=== PATIENT | female | born 1950 | race Caucasian/White ===

== ENCOUNTER 2021-01-15 11:46 | Inpatient (IN) ==
[2021-01-15] MEDS ORDERED: KETOROLAC 30 MG/ML VIAL IV ONE (12:12)
[2021-01-15] MEDS ORDERED: HYDROmorphone 0.5 MG/0.5 ML SYRINGE IV PRN ×2 (12:16→17:07)
[2021-01-15] MEDS ORDERED: ONDANSETRON 4 MG/2 ML VIAL IV ONE (12:16)
--- NOTE | 2021-01-15 12:43 | Emergency Department Note ---
Trauma HPI General Chief Complaint: Trauma Stated Complaint: Fall Time Seen by Provider: 01/15/21 12:10 Source: patient and EMS Mode of arrival: EMS History of Present Illness HPI Narrative: This a 70-year-old female patient who sustained a mechanical fall off stairs earlier this morning landing onto her right side. She comes in complaining of right wrist pain and right hip pain. On exam she has a clear deformity of the right distal radius, and the right hip is externally rotated and shortened. She is neurovascularly intact. She is a type II diabetic with hypertension. Related Data Home Medications Medication Instructions Recorded Confirmed Trulicity 04/17/20 06/02/20 aspirin 81 mg tablet,delayed 81 mg PO QDAY 04/24/20 06/02/20 release dulaglutide 0.75 mg/0.5 mL 0.75 mg SUB-Q QWEEK 04/24/20 06/02/20 subcutaneous pen injector famotidine 20 mg tablet 20 mg PO BID tab 04/24/20 06/02/20 lidocaine 5 % topical patch 2 patch TOPICAL Q12H each 04/24/20 06/02/20 lisinopril 2.5 mg tablet 2.5 mg PO QDAY 04/24/20 06/02/20 magnesium oxide 420 mg tablet 420 mg PO QDAY 04/24/20 06/02/20 Previous Rx's Medication Instructions Recorded tramadol 50 - 100 mg PO Q6HP PRN #20 tab 04/17/20 Allergies Allergy/AdvReac Type Severity Reaction Status Date / Time hydrocodone AdvReac Vomiting Verified 06/02/20 10:43 Review of Systems ROS ROS Narrative: Narrative: All systems ED: reviewed and negative except as stated. PFS Narrative Patient History Narrative: Narrative: Medical/Surgical/Family History All Active Problems (Updated 01/15/21 @ 14:25 by Joyce Baum PA-C) Distal radius fracture, right (Acute) Closed subtrochanteric fracture of femur (Acute) Back pain, thoracic (Acute) Nicotine addiction (Chronic) Obesity (Chronic) Age-related osteoporosis with current pathol fracture of vertebra (Acute) No pertinent past surgical history (Chronic) Glaucoma (Chronic) Vertigo (Chronic) Hypokalemia (Chronic) GERD (gastroesophageal reflux disease) (Chronic) Osteopenia (Chronic) Knee pain (Chronic) Toe pain (Chronic) Multinodular goiter (Chronic) Diabetes mellitus (Chronic) Hyperlipidemia (Chronic) Amenorrhea (Chronic) Patellar contusion (Chronic) Injury of meniscus of left knee (Chronic) Knee effusion, left (Chronic) Closed compression fracture of thoracic vertebra (Chronic) Medical History Age-related osteoporosis with current pathol fracture of vertebra Amenorrhea Back pain, thoracic Diabetes mellitus GERD (gastroesophageal reflux disease) Glaucoma Hyperlipidemia Hypokalemia Injury of meniscus of left knee Knee effusion, left Knee pain Multinodular goiter Nicotine addiction Obesity Osteopenia Patellar contusion Toe pain Vertigo Surgical History History of arthroscopic knee surgery Family History Father Hypertension Heart disease Alcohol abuse Mother Hypertension Arthritis Social History Smoking Status: Current every day smoker Alcohol Intake Frequency: does not drink Substance Use: does not use Exam Narrative Narrative: General: AOx3, NAD, nontoxic appearing. Pleasant and conversant. HEENT: PERRLA, EOMI, normocephalic. Moist mucous membranes. Normal facies and normal dentition. Respiratory: No respiratory distress. Unlabored breathing. Heart: Regular rate and rhythm, no murmurs/clicks/rubs. Abdomen: Non-tender, Non distended, normal bowel tones. No organomegaly. Extremities: Warm and well perfused. No edema. DP 2+ bilaterally. No venous stasis. Right distal radius with clear deformity. There is pain to palpation of the area. She is moving all fingers. Good capillary refill. Sensate throughout. Right lower extremity with clear shortening and external rotation. Neurovascular intact with good sensation and pulses. Neuro: No focal deficits. Cranial nerves II-XII normal. Skin: Warm dry, no rashes or lesions, no cyanosis. Psych: Normal mood and affect Heme/Lymph: No abnormal bruising Course Course Course Narrative: 70-year-old female presents with right wrist and right hip pain after mechanical fall Reevaluation(s) Reevaluation #1: Obtain IV access and give analgesics and antiemetics Check a CBC and CMP 3 view x-ray of the wrist and two-view x-ray of the hip to query for fractures Vital Signs Vital signs: Vital Signs Temperature 98.0 F 01/15/21 11:47 Pulse Rate 85 01/15/21 11:47 Respiratory Rate 18 01/15/21 11:47 Blood Pressure 150/81 01/15/21 11:47 Pulse Oximetry (%) 95 01/15/21 11:47 Temperature 98.0 F 01/15/21 11:47 Pulse Rate 90 01/15/21 14:03 Respiratory Rate 20 01/15/21 11:55 Blood Pressure 91/59 01/15/21 14:03 Pulse Oximetry (%) 97 01/15/21 14:03 MDM MDM Narrative Medical decision making narrative: Mechanical fall Right sub-trochanteric fracture Right distal radius fracture Type 2 diabetes Hypertension I spoke with Dr. Fernández who will plan on admitting patient taking her for surgery this afternoon. Currently pending admission. Lab Data Result diagrams: 01/15/21 12:30 01/15/21 12:30 Labs: Lab Results 01/15/21 01/15/21 Range/Units 12:30 12:30 WBC 7.1 (4.5-11.0) K/mcL RBC 4.31 (3.59-5.38) M/mcL Hgb 12.2 (11.2-15.7) g/dL Hct 39.6 (34.1-44.9) % MCV 91.9 (80.0-100.0) fL MCH 28.3 (26.0-34.0) pg MCHC 30.8 L (31.0-36.0) g/dL RDW 13.0 (11.5-14.5) % Plt Count 200 (140-440) K/mcL MPV 10.5 H (7.4-10.4) fL Sodium 138 (133-145) mmol/L Potassium 3.8 (3.3-5.1) mmol/L Chloride 106 (96-108) mmol/L Carbon Dioxide 22 (22-30) mmol/L Anion Gap 10.0 (8.0-16.0) BUN 13 (8-23) mg/dL Creatinine 0.6 (0.6-1.1) mg/dL GFR Calculation 93 Glucose 172 H (70-105) mg/dL Calcium 8.7 (8.6-10.4) mg/dL Total Bilirubin 0.5 (0.1-1.0) mg/dL AST 45 H (<32) U/L ALT 36 (<40) U/L Alkaline Phosphatase 118 H (39-117) U/L Total Protein 6.5 (5.9-8.4) gm/dL Albumin 3.5 (3.2-5.2) gm/dL Globulin 3.0 (2.2-3.7) gm/dL Albumin/Globulin Ratio 1.2 (1.0-2.3) ED POC Tests ED POC Tests: DRAKE - SARS Antigen Negative Discharge Plan Patient/Caregiver Discharge Instructions Pt seen by BAG FILLER/PA only: Yes Clinical Impression: Distal radius fracture, right, Closed subtrochanteric fracture of femur Patient Disposition: Xfer As Inpt ([facility]) Follow up with: Maya Bustos MD [Primary Care Provider] - Prescriptions: No Action aspirin 81 mg tablet,delayed release (DR/EC) 81 mg PO QDAY RF: 0 dulaglutide 0.75 mg/0.5 mL pen injector 0.75 mg SUB-Q QWEEK RF: 0 famotidine 20 mg tablet 20 mg PO BID RF: 0 lidocaine 5 % adhesive patch,medicated 2 patch TOPICAL Q12H RF: 0 lisinopril 2.5 mg tablet 2.5 mg PO QDAY RF: 0 magnesium oxide 420 mg tablet 420 mg PO QDAY RF: 0 Trulicity RF: 0 tramadol 50 mg Tablet 50 - 100 mg PO Q6HP PRN (Reason: Pain) Qty: 20 RF: 0
--- NOTE | 2021-01-15 13:23 | XRay Report ---
CLINICAL INFORMATION: pre surgery COMPARISON: None. FINDINGS: Heart is mildly enlarged. Mediastinum and pulmonary vessels are normal. Lungs are clear. No effusions. Right diaphragm mildly elevated. IMPRESSION: No acute disease Interpreted and Authenticated by: Carlos Eduardo Silverman 01/15/21
--- NOTE | 2021-01-15 13:24 | XRay Report ---
CLINICAL INFORMATION: fall, deformity COMPARISON: None. FINDINGS: Severely comminuted Colles' fracture of the distal radial metadiaphysis, metaphysis and epiphysis appreciated. Distal fragment is angulated 30 degrees dorsally and displaced approximately 1 cm dorsally. There is also a moderately comminuted oblique fracture of the distal ulnar metaphysis. The distal fragment is displaced 1 cm dorsally and there is at least 40 degrees dorsal angulation. Joint spaces are unremarkable IMPRESSION: Comminuted displaced angulated Colles' fracture distal radius. Oblique fracture distal ulna is also displaced and angulated. Interpreted and Authenticated by: Carlos Eduardo Silverman 01/15/21
--- NOTE | 2021-01-15 13:26 | XRay Report ---
CLINICAL INFORMATION: Trauma, COMPARISON: None. FINDINGS: Moderately comminuted, oblique subtrochanteric fracture of the proximal femur appreciated. The distal femoral diaphysis is displaced less than 1 cm laterally. No angulation deformity. Mild osteoporosis appreciated.. There is mild degenerative change both SI and hip joints with chondrocalcinosis the femoral head cartilages. Soft tissues are normal. IMPRESSION: Oblique moderately comminuted fractures of the proximal femoral diaphysis in the subtrochanteric region. Minimal displacement. Interpreted and Authenticated by: Carlos Eduardo Silverman 01/15/21
[2021-01-15 13:42] LABS: Hematocrit 39.6 % (34.1-44.9); Hemoglobin 12.2 g/dL (11.2-15.7); Mean Cell Volume 91.9 fL (80.0-100.0); Mean Corpuscular HGB Conc 30.8 g/dL (31.0-36.0); Mean Platelet Volume 10.5 fL (7.4-10.4); Platelet Count 200 K/mcL (140-440); RBC 4.31 M/mcL (3.59-5.38); WBC 7.1 K/mcL (4.5-11.0)
[2021-01-15 14:04] LABS: ALT/SGPT 36 U/L (<40); AST/SGOT 45 U/L (<32); Albumin 3.5 gm/dL (3.2-5.2); Albumin/Globulin Ratio 1.2 (1.0-2.3); Alkaline Phosphatase 118 U/L (39-117); Bilirubin,Total 0.5 mg/dL (0.1-1.0); Blood Urea Nitrogen 13 mg/dL (8-23); Calcium 8.7 mg/dL (8.6-10.4); Carbon Dioxide 22 mmol/L (22-30); Chloride 106 mmol/L (96-108); Glomerular Filtration Rate 93; Glucose 172 mg/dL (70-105)
[2021-01-15] MEDS ORDERED: fentaNYL 100 MCG/2 ML VIAL IV ONE ×3 (14:51→15:20)
[2021-01-15 14:54] LABS: Prothrombin Time 14.1 sec (11.9-14.5)
[2021-01-15 15:13] LABS: Eosinophils % (Manual) 1 % (0-7); Lymphocytes % 30 % (15-49); Monocytes % (Manual) 3 % (1-12); Platelet Estimate NORMAL (Normal); RBC Morphology NORMAL (Normal); Segmented Neutrophils % 66 % (38-78)
[2021-01-15] MEDS ORDERED: MAGNESIUM SULFATE 2 GM/50 ML BAG IV ONE (15:20)
[2021-01-15] MEDS ORDERED: MIDAZOLAM 2 MG/2 ML VIAL ONE (15:20)
[2021-01-15] MEDS ORDERED: ESMOLOL 100 MG/10 ML VIAL IV ONE (15:20)
[2021-01-15] MEDS ORDERED: PHENYLephrine 1 MG/10 ML SYRINGE (ANEST) ONE (15:20)
[2021-01-15] MEDS ORDERED: DEXAMETHASONE 10 MG/ML VIAL ONE (15:20)
[2021-01-15] MEDS ORDERED: PROPOFOL 200 MG/20 ML VIAL IV ONE (15:20)
[2021-01-15] MEDS ORDERED: SUGAMMADEX SODIUM 200 MG/2 ML VIAL IV ONE (15:20)
[2021-01-15] MEDS ORDERED: ONDANSETRON 4 MG/2 ML VIAL ONE ×2 (15:20→18:57)
[2021-01-15] MEDS ORDERED: ePHEDrine 50 MG/5 ML SYRINGE (ANEST) IV ONE (15:20)
[2021-01-15] MEDS ORDERED: ROCURONIUM 10 MG/ML ML IV ONE (15:20)
[2021-01-15] MEDS ORDERED: LIDOCAINE HCL/PF 100 MG/5 ML SYRINGE IV ONE (15:20)
[2021-01-15] MEDS ORDERED: ceFAZolin 2 GM in DEXTROSE 5% IN WATER 50 ML IV SCH (15:45)
[2021-01-15] MEDS ORDERED: MEPERIDINE 25 MG/ML VIAL IV PRN (17:07)
[2021-01-15] MEDS ORDERED: diphenhydrAMINE 50 MG/ML VIAL IV PRN (17:07)
[2021-01-15] MEDS ORDERED: ACETAMINOPHEN 1,000 MG/100 ML BAG IV ONE (17:07)
[2021-01-15] MEDS ORDERED: METHOCARBAMOL 1,000 MG/10 ML VIAL IV PRN (17:07)
[2021-01-15] MEDS ORDERED: IPRATROPIUM/ALBUTEROL 3 ML AMPUL.NEB NEB PRN (17:07)
[2021-01-15] MEDS ORDERED: NALOXONE HCL 0.4 MG/ML VIAL IV PRN (17:07)
[2021-01-15] MEDS ORDERED: ePHEDrine 50 MG/ML AMPUL IV PRN (17:07)
[2021-01-15] MEDS ORDERED: fentaNYL 100 MCG/2 ML VIAL IV PRN (17:07)
[2021-01-15] MEDS ORDERED: PROMETHAZINE 25 MG/ML VIAL IV PRN (17:07)
[2021-01-15] MEDS ORDERED: METOPROLOL TARTRATE 5 MG/5 ML VIAL IV PRN (17:07)
[2021-01-15] MEDS ORDERED: LACTATED RINGERS 1,000 ML IV SCH (17:15)
[2021-01-15] MEDS ORDERED: BUPIVACAINE 0.5% 50 ML VIAL IJ ONE (17:27)
[2021-01-15] MEDS ORDERED: TEMAZEPAM 15 MG CAPSULE PO PRN (17:38)
[2021-01-15] MEDS ORDERED: FLEETS ADULT ENEMA PR PRN (17:38)
[2021-01-15] MEDS ORDERED: ONDANSETRON 4 MG/2 ML VIAL IV PRN (17:38)
[2021-01-15] MEDS ORDERED: BISACODYL 10 MG SUPP.RECT PR PRN (17:38)
[2021-01-15] MEDS ORDERED: HYDROcodone/APAP 10/325MG TABLET PO PRN (17:38)
[2021-01-15] MEDS ORDERED: TRANEXAMIC ACID 1,000 MG/10 ML VIAL IV ONE (17:38)
[2021-01-15] MEDS ORDERED: MAGNESIUM HYDROXIDE 30 ML ORAL.SUSP PO PRN (17:38)
--- NOTE | 2021-01-15 17:39 | Discharge Plan ---
Discharge Plan Patient/Caregiver Discharge Instructions Activity: ambulate only with your walker and as per physical therapy Diet: Regular Diet Prescriptions: New aspirin [Ecotrin Low Strength] 81 mg tablet,delayed release (DR/EC) 81 mg PO BID Qty: 60 RF: 0 docusate sodium 100 mg capsule 100 mg PO BID Qty: 60 RF: 0 oxycodone-acetaminophen 5-325 mg tablet 1 - 2 tab PO Q4H MDD 8 PRN (Reason: pain) Qty: 75 RF: 0 No Action Trulicity 0.75 mg/0.5 mL Pen Injector 0.75 mg SUBCUT WEEKLY RF: 0 Other Ambulatory Orders: Physical Therapy DC - NICOLE (Routine) Location: None Selected Ordered By: Jonh Landeros Toilet Riser Discharge Order (ONCE) Location: None Selected Ordered By: Jonh Landeros Walker (ONCE) Location: None Selected Ordered By: Jonh Landeros Follow Up Plan Follow up with: Maya Bustos MD [Primary Care Provider] - Jonh Landeros PA-C [Physician [employer] Driver] - Patient Disposition: Home, Self-Care Prognosis: Good Rehab Potential: Good I certify that the patient requires SNF services: No Overall status at discharge: patient is progressing back to baseline Discharge Orders: Discharge Order (Routine); Ordered 01/16/21 Ordered By: Jonh Landeros
--- NOTE | 2021-01-15 18:06 | XRay Report ---
CLINICAL INFORMATION: right hip gamma nail COMPARISON: None. FINDINGS: Digital images are submitted from the OR. Images show reduction of oblique intertrochanteric fracture to near-anatomic alignment and internal fixation by a gamma nail. IMPRESSION: ORIF intertrochanteric fracture in near-anatomic alignment Interpreted and Authenticated by: Carlos Eduardo Silverman 01/15/21
[2021-01-15] MEDS ORDERED: TRANEXAMIC ACID 1,000 MG/10 ML VIAL ONE (18:24)
[2021-01-15] MEDS: KETOROLAC 15 MG/ML VIAL IV PRN (21:05)
[2021-01-15] MEDS: ASPIRIN 81 MG TAB.CHEW CHEWED SCH (21:10)
[2021-01-15] MEDS: SENNOSIDES 1 TABLET PO SCH (21:10)
[2021-01-15] MEDS: DOCUSATE SODIUM 100 MG CAPSULE PO SCH (21:10)
[2021-01-15] MEDS ORDERED: 0.9 % SODIUM CHLORIDE 500 ML IV ONE (21:20)
[2021-01-16] MEDS: ceFAZolin 1 GM VIAL IV SCH ×2 (00:04→09:34)
[2021-01-16] MEDS: BENZOCAINE/MENTHOL 1 LOZENGE PO PRN (00:04)
[2021-01-16] MEDS: 0.9 % SODIUM CHLORIDE 10 ML SYRINGE IV SCH ×4 (00:09→21:47)
[2021-01-16] MEDS: ONDANSETRON 4 MG/2 ML VIAL IV PRN ×2 (00:19→10:15)
[2021-01-16] MEDS: LACTATED RINGERS 1,000 ML IV SCH ×3 (00:23→14:52)
[2021-01-16 02:08] LABS: Appearance,Urine CLEAR (Clear); Bilirubin,Urine Negative (Negative); Color,Urine YELLOW; Culture Indicated,Urine No; Glucose,Urine (UA) >=500 mg/dL (Negative); Ketones,Urine 20 mg/dL (Negative); Leukocyte Esterase,Urine Negative /ug (Negative); Mucus,Urine FEW /hpf; Nitrate,Urine Negative (Negative); Protein,Urine Negative (Negative); Specific Gravity,Urine 1.029 (1.000-1.035); Urine Blood Negative (Negative); Urine Hyaline Cast 1 /lph (0-2); Urine RBC < 1 /hpf (0-3); Urine Squamous Epithelial Cell 0 /hpf (0-4); Urine WBC < 1 /hpf (0-4); Urobilinogen,Urine Negative
--- NOTE | 2021-01-16 02:19 | XRay Report ---
CLINICAL INFORMATION: Right subtrochanteric fracture-postop COMPARISON: Operative x-ray 01/15/2021 FINDINGS: Oblique fracture of the subtrochanteric region of the proximal femoral diaphysis is been reduced to anatomic alignment and transfixed by gamma nail. Mild degenerative change present in the hip with chondrocalcinosis in the femoral head cartilages. There is moderate patellofemoral and tibiofemoral degeneration. Diffuse soft tissue swelling noted. IMPRESSION: Oblique subtrochanteric fracture reduced to anatomic alignment and transfixed by gamma nail. Interpreted and Authenticated by: Carlos Eduardo Silverman 01/16/21
[2021-01-16] MEDS ORDERED: 0.9 % SODIUM CHLORIDE 250 ML IV SCH (09:15)
[2021-01-16] MEDS: DOCUSATE SODIUM 100 MG CAPSULE PO SCH ×2 (09:33→21:47)
[2021-01-16] MEDS: ASPIRIN 81 MG TAB.CHEW CHEWED SCH ×2 (09:33→21:46)
[2021-01-16] MEDS: INSULIN LISPRO 1 UNIT/0.01 ML UNIT SQ SCH ×4 (17:17→21:53)
[2021-01-16] MEDS: KETOROLAC 15 MG/ML VIAL IV PRN (21:47)
[2021-01-16] MEDS: SENNOSIDES 1 TABLET PO SCH (21:47)
[2021-01-17] MEDS: LACTATED RINGERS 1,000 ML IV SCH ×3 (03:49→14:09)
[2021-01-17] MEDS: 0.9 % SODIUM CHLORIDE 10 ML SYRINGE IV SCH ×3 (05:56→21:38)
[2021-01-17] MEDS: INSULIN LISPRO 1 UNIT/0.01 ML UNIT SQ SCH ×4 (09:40→21:24)
--- NOTE | 2021-01-17 09:47 | Orthopedic Progress Note ---
SUBJECTIVE Subjective Patient information: Note initiated : 01/17/21 at 9:39 am Service Date, if different from initiated Date: [] Patient: Anabel Marmolejo 70 y/o F admitted on 01/15/21 for Fall. Chief Complaint: [right hip pain and is 2 days post op for right intertroch hip fracature and right wrist fracture and swollen knee] Constitutional Vitals: Vital Signs Temp Pulse Resp BP Pulse Ox 98.7 F 104 H 20 103/60 90 01/17/21 07:23 01/17/21 07:23 01/17/21 07:23 01/17/21 07:23 01/17/21 09:00 Period Temp Pulse Resp BP Sys/Osorio Pulse Ox Last 24 Hr 97.4 F-98.7 F 101-105 16-24 88-111/56-65 90-95 Intake and Output 01/16/21 01/17/21 01/17/21 21:59 05:59 13:59 Intake Total 58 1400 0 Output Total 100 400 Balance -42 1000 0 Weight 183 lb 9 oz Intake & Output: Intake & Output 01/16/21 01/17/21 01/17/21 21:59 05:59 13:59 Intake Total 58 1400 0 Output Total 100 400 Balance -42 1000 0 Weight 183 lb 9 oz Intake: IV 58 1000 Sodium Chloride 0.9% 250 ml @ 58 20 mls/hr IV .[id number] PAPI Rx#: [id number] Lactated Ringers 1,000 ml @ 100 1000 mls/hr IV .Q10H PAPI Rx#: [id number] Oral 0 400 0 Output: Urine Catheter Amount 400 Emesis 100 Other: Urine Appearance Clear Urine Color Light Iris # Emeses 1 OBJ DATA Labs CBC & Chem 7: 01/16/21 06:56 01/15/21 12:30 Labs: Abnormal Lab Results 01/16/21 01/16/21 01/15/21 06:56 01:00 12:30 Hct 25.4 L MCHC MPV Glucose 172 H AST 45 H Alkaline Phosphatase 118 H Urine Glucose (UA) >=500 A Urine Ketones 20 A Urine Mucus Few A 01/15/21 12:30 Hct MCHC 30.8 L MPV 10.5 H Glucose AST Alkaline Phosphatase Urine Glucose (UA) Urine Ketones Urine Mucus Meds: Medications Acetaminophen (Acetaminophen 325 Mg Tablet) 650 mg PO Q6HP PRN; Protocol PRN Reason: Per Pain Protocol/Fever > 101 Hydrocodone Bitart/Acetaminophen (Hydrocodone/Apap 10/325mg Tablet) 1 - 2 tab PO Q4HP PRN; Protocol PRN Reason: Per Pain Protocol Aspirin (Aspirin 81 Mg Tab.Chew) 81 mg CHEWED BID [facility] Last Admin: 01/16/21 21:46 Dose: 81 mg Documented by: Bisacodyl (Bisacodyl 10 Mg Supp.Rect) 10 mg MA Q2-3DAYS PRN PRN Reason: Constipation Diagnostic Test (Pha) (Accu-Chek 1 Each Strip) 1 each FS [facility] Last Admin: 01/16/21 21:46 Dose: 1 each Documented by: Docusate Sodium (Docusate Sodium 100 Mg Capsule) 100 mg PO BID [facility] Last Admin: 01/16/21 21:47 Dose: Not Given Documented by: Hydromorphone HCl (Hydromorphone 1 Mg/Ml Syringe) 0.5 - 2 mg IV Q2HP PRN; Gildardo col PRN Reason: Per Pain Protocol Lactated Ringer's (Lactated Ringers) 1,000 mls @ 100 mls/hr IV .Q10H [facility] Last Admin: 01/17/21 03:49 Dose: 100 mls/hr Documented by: Insulin Human Lispro (Insulin Lispro 1 Unit/0.01 Ml Unit) 0 unit SQ [facility]; Protocol Last Admin: 01/16/21 21:53 Dose: Not Given Documented by: Ketorolac Tromethamine (Ketorolac 15 Mg/Ml Vial) 15 mg IV Q6HP PRN; Protocol PRN Reason: Per Pain Protocol Stop: 01/17/21 17:40 Last Admin: 01/16/21 21:47 Dose: 15 mg Documented by: Magnesium Hydroxide (Magnesium Hydroxide 30 Ml Oral.Susp) 30 ml PO BIDP PRN PRN Reason: Constipation Ondansetron HCl (Ondansetron 4 Mg/2 Ml Vial) 4 mg IV Q4HP PRN; Protocol PRN Reason: Nausea And Vomiting Last Admin: 01/16/21 10:15 Dose: 4 mg Documented by: Dulaglutide [ Trulicity] 0.75 Mg/0 .5 Ml Pen Injector 1 dose SUB-Q Tu@0900 [facility] Polyethylene Glycol (Polyethylene Glycol 3350 17 Gm Packet) 17 gm PO DAILYP PRN PRN Reason: Constipation Senna (Sennosides 1 Tablet) 2 tab PO HS [facility] Last Admin: 01/16/21 21:47 Dose: Not Given Documented by: Sodium Biphosphate/Sodium Phosphate (Fleets Adult Enema) 1 dose MA Q3-4DAYS PRN PRN Reason: Constipation Sodium Chloride (0.9 % Sodium Chloride 10 Ml Syringe) 10 ml IV Q8 [facility] Last Admin: 01/17/21 05:56 Dose: Not Given Documented by: Temazepam (Temazepam 15 Mg Capsule) 15 mg PO HSP PRN PRN Reason: Insomnia Throat Lozenges (Benzocaine/Menthol 1 Lozenge) 1 lozenge PO PRN PRN PRN Reason: Sore Throat Last Admin: 01/16/21 00:04 Dose: 1 lozenge Documented by: ABG Interpretation Additional comments: greater than 500 mg sugar in urine A/P Narrative A/P Narrative: Unable to ambulate secondary to knee pain ct scan right knee if continued pain dc to intermediate severe osteoperosis Time Spent With Patient Time: Total time spent is greater than 50% in coordination of care (as documented) at patient's floor/unit and/or counseling patient: Total time spent with greater than 50% in coordination of care (as documented) at patient's floor/unit and/or counseling patient:: 15 - 24 minutes
[2021-01-17] MEDS: DOCUSATE SODIUM 100 MG CAPSULE PO SCH ×2 (10:11→21:24)
[2021-01-17] MEDS: ASPIRIN 81 MG TAB.CHEW CHEWED SCH ×2 (10:11→21:24)
--- NOTE | 2021-01-17 13:28 | XRay Report ---
CLINICAL INFORMATION: Pain after trauma COMPARISON: 01/15/2021 FINDINGS: The distal end of a gamma nail with interlocking screws is seen in the mid and distal femoral diaphysis. No osseous abnormality. Moderate patellofemoral effusion with air-fluid level appreciated. Mild degenerative change seen about patellofemoral and tibiofemoral joints.. IMPRESSION: Moderate patellofemoral effusion with air-fluid level. This is new from the intraoperative film two days ago. It is assumed this space was not surgically entered at the time of gamma nail placement transfixing a proximal femoral fracture. The possibility of infection should be entertained. Consider needle aspiration Interpreted and Authenticated by: Carlos Eduardo Silverman 01/17/21
[2021-01-17] MEDS: HYDROmorphone 1 MG/ML SYRINGE IV PRN (17:16)
[2021-01-17] MEDS: ONDANSETRON 4 MG/2 ML VIAL IV PRN (17:16)
[2021-01-17] MEDS: KETOROLAC 15 MG/ML VIAL IV PRN (17:16)
[2021-01-17] MEDS: ACETAMINOPHEN 325 MG TABLET PO PRN (17:17)
[2021-01-17] MEDS: SENNOSIDES 1 TABLET PO SCH (21:24)
[2021-01-18] MEDS: 0.9 % SODIUM CHLORIDE 10 ML SYRINGE IV SCH ×4 (04:59→22:37)
[2021-01-18] MEDS: LACTATED RINGERS 1,000 ML IV SCH ×3 (04:59→17:34)
[2021-01-18] MEDS: INSULIN LISPRO 1 UNIT/0.01 ML UNIT SQ SCH ×4 (08:59→20:40)
[2021-01-18] MEDS: DOCUSATE SODIUM 100 MG CAPSULE PO SCH ×2 (09:00→21:23)
[2021-01-18] MEDS: ACETAMINOPHEN 325 MG TABLET PO PRN ×3 (09:00→22:36)
[2021-01-18] MEDS: ASPIRIN 81 MG TAB.CHEW CHEWED SCH ×2 (09:00→21:27)
[2021-01-18] MEDS: HYDROmorphone 1 MG/ML SYRINGE IV PRN ×3 (09:01→22:45)
[2021-01-18] MEDS: ONDANSETRON 4 MG/2 ML VIAL IV PRN ×2 (09:01→15:22)
--- NOTE | 2021-01-18 14:26 | Operative Note ---
DATE OF OPERATION: 01/15/2021 PREOPERATIVE DIAGNOSES: 1. Right intertrochanteric and subtrochanteric hip fracture. 2. Right distal radius fracture, severely comminuted. POSTOPERATIVE DIAGNOSES: 1. Right intertrochanteric and subtrochanteric hip fracture. 2. Right distal radius fracture, severely comminuted. PROCEDURE: 1. Right distal radius open reduction internal fixation with volar plate and screws. 2. Right hip with open reduction and IM nailing using a long gamma nail. IMPLANTS: Volar long plate with multiple screws per nurse's note. The gamma nail was 36 cm in length, 13 mm in diameter with a dynamic compression screw measuring 95 mm. The distal screws locked. The stem measured 50 and 52.5 mm. COMPLICATIONS: None. ESTIMATED BLOOD LOSS: 100 mL. SURGEON: Akshat Casas M.D. [employer]: Jonh Landeros PA-C. This providers expertise and technical skill were required throughout the case. The TAWANNA assisted with preoperative coordination, intraoperative retraction, wound closure, and dressing and splint application, as well as postoperative documentation and care coordination. ANESTHESIA: General LMA anesthesia. COMPLICATIONS: None. DISPOSITION: To PACU. INDICATIONS: A 70-year-old female who had a same level fall and had severe pain in the right wrist and the right hip area. DESCRIPTION OF PROCEDURE: The patient was brought to the operating room, put to sleep with general LMA anesthesia. Once asleep, the patient had the right hip sterilely prepped and draped in the usual sterile fashion. A timeout was performed confirming this as the operative site by initials, consent form, and x-rays. Ioban had been placed over the skin and an incision superior to the greater trochanter was made. This was dissected down to the greater trochanter and a guidewire was then placed centrally. Using image confirmed a central location of the guidewire, we then reamed proximally and then placed a guidewire. We then placed the gamma nail, which measured 36 cm in total length into place. We placed the compression screw, which measured 95 cm centrally and slightly inferior and posteriorly into the femoral head. This was then compressed using the compression mechanism by the [employer] system, and then a locking screw placed. Two distal screws were placed. Using image, these were a 52 and a 50 mm locking screw. Her bone quality was very poor. We took images of the entire femur and the hip and these were saved. We closed the wounds with 2-0 Vicryl and sha. PROCEDURE #2: The right arm was then sterilely prepped. After redraping we had a timeout confirming the right arm as the operative site. We made a volar approach to the wrist using an incision over the flexor carpi radialis. This was retracted ulnarly and we identified the quadratus. This was released from the fracture, but the fracture was very complex. It extended into the shaft as well as through the ulnar styloid. The bone quality was a paper thin--very poor osteopenic bone. This was reduced. We then placed a long the volar plate. We placed one nonlocking screw and one distal locking screw. This had excellent fixation. We then placed an additional screw in the radial styloid fragment and then three screws distally in the ulnar segment of the fracture. I then placed four additional screws up into the shaft. These measured 14, 12, 10, 10 and 10. We irrigated thoroughly and then took images to confirm the reduction. The right arm was placed in a long-arm splint. No tourniquet was used. Blood loss about 20 mL. RBH:patricia Job ID: [id number] Doc ID: [id number] Akshat Casas MD
[2021-01-18] MEDS: SENNOSIDES 1 TABLET PO SCH (21:23)
[2021-01-19] MEDS: 0.9 % SODIUM CHLORIDE 10 ML SYRINGE IV SCH ×2 (04:03→14:59)
--- NOTE | 2021-01-19 07:52 | Orthopedic Progress Note ---
SUBJECTIVE Subjective Patient information: Note initiated : 01/19/21 at 7:48 am Service Date, if different from initiated Date: [] Patient: Anabel Marmolejo 70 y/o F admitted on 01/15/21 for Fall. Chief Complaint: [PO Day 4, pt struggling to get up and bear weight because of knee pain. ] Constitutional Vitals: Vital Signs Temp Pulse Resp BP Pulse Ox 98.0 F 92 H 20 103/59 94 01/19/21 03:04 01/19/21 03:04 01/19/21 03:04 01/19/21 03:04 01/19/21 06:00 Period Temp Pulse Resp BP Sys/Osorio Pulse Ox Last 24 Hr 97.4 F-98.4 F 85-92 20-22 97-124/56-71 90-96 Intake and Output 01/18/21 01/19/21 01/19/21 21:59 05:59 13:59 Intake Total 240 360 Balance 240 360 Weight 165 lb 12.8 oz Intake & Output: Intake & Output 01/18/21 01/19/21 01/19/21 21:59 05:59 13:59 Intake Total 240 360 Balance 240 360 Weight 165 lb 12.8 oz Intake: Oral 240 360 Extremities Exam Additional comments: Knee very swollen, effusion present and warm to touch---- OBJ DATA Labs CBC & Chem 7: 01/17/21 10:00 01/15/21 12:30 Labs: Abnormal Lab Results 01/17/21 01/16/21 10:00 06:56 Hct 26.4 L 25.4 L Meds: Medications Acetaminophen (Acetaminophen 325 Mg Tablet) 650 mg PO Q6HP PRN; Protocol PRN Reason: Per Pain Protocol/Fever > 101 Last Admin: 01/18/21 22:36 Dose: 650 mg Documented by: Hydrocodone Bitart/Acetaminophen (Hydrocodone/Apap 10/325mg Tablet) 1 - 2 tab PO Q4HP PRN; Protocol PRN Reason: Per Pain Protocol Aspirin (Aspirin 81 Mg Tab.Chew) 81 mg CHEWED BID [facility] Last Admin: 01/18/21 21:27 Dose: 81 mg Documented by: Bisacodyl (Bisacodyl 10 Mg Supp.Rect) 10 mg VT Q2-3DAYS PRN PRN Reason: Constipation Diagnostic Test (Pha) (Accu-Chek 1 Each Strip) 1 each FS [facility] Last Admin: 01/18/21 20:38 Dose: 1 each Documented by: Docusate Sodium (Docusate Sodium 100 Mg Capsule) 100 mg PO BID [facility] Last Admin: 01/18/21 21:23 Dose: Not Given Documented by: Hydromorphone HCl (Hydromorphone 1 Mg/Ml Syringe) 0.5 - 2 mg IV Q2HP PRN; Protocol PRN Reason: Per Pain Protocol Last Admin: 01/18/21 22:45 Dose: 1 mg Documented by: Insulin Human Lispro (Insulin Lispro 1 Unit/0.01 Ml Unit) 0 unit SQ [facility]; Protocol Last Admin: 01/18/21 20:40 Dose: Not Given Documented by: Magnesium Hydroxide (Magnesium Hydroxide 30 Ml Oral.Susp) 30 ml PO BIDP PRN PRN Reason: Constipation Ondansetron HCl (Ondansetron 4 Mg/2 Ml Vial) 4 mg IV Q4HP PRN; Protocol PRN Reason: Nausea And Vomiting Last Admin: 01/18/21 09:01 Dose: 4 mg Documented by: Dulaglutide [ Trulicity] 0.75 Mg/0 .5 Ml Pen Injector 1 dose SUB-Q Tu@0900 [facility] Polyethylene Glycol (Polyethylene Glycol 3350 17 Gm Packet) 17 gm PO DAILYP PRN PRN Reason: Constipation Senna (Sennosides 1 Tablet) 2 tab PO HS [facility] Last Admin: 01/18/21 21:23 Dose: Not Given Documented by: Sodium Biphosphate/Sodium Phosphate (Fleets Adult Enema) 1 dose [place] Q3-4DAYS PRN PRN Reason: Constipation Sodium Chloride (0.9 % Sodium Chloride 10 Ml Syringe) 10 ml IV Q8 [facility] Last Admin: 01/19/21 04:03 Dose: 10 ml Documented by: Temazepam (Temazepam 15 Mg Capsule) 15 mg PO HSP PRN PRN Reason: Insomnia Throat Lozenges (Benzocaine/Menthol 1 Lozenge) 1 lozenge PO PRN PRN PRN Reason: Sore Throat Last Admin: 01/16/21 00:04 Dose: 1 lozenge Documented by: A/P Narrative A/P Narrative: Today I aspirated the knee and obtained 70cc bloody effusion that willl be sent for cell count, gram stain, crystals and aerobic/anerobic cultures and we will order non-contrast CT of right knee. Pt awaiting SNF transfer otherwise cleared from ortho. Pt is having difficulty voiding and straight cath ordered as well as bladder scan as indicated. CMP requested by RN and ok'd. Time Spent With Patient Time: Total time spent is greater than 50% in coordination of care (as documented) at patient's floor/unit and/or counseling patient: Total time spent with greater than 50% in coordination of care (as documented) at patient's floor/unit and/or counseling patient:: 25 - 35 minutes
[2021-01-19] MEDS: HYDROmorphone 1 MG/ML SYRINGE IV PRN (08:52)
[2021-01-19] MEDS: ONDANSETRON 4 MG/2 ML VIAL IV PRN (09:01)
[2021-01-19] MEDS: ACETAMINOPHEN 325 MG TABLET PO PRN (09:17)
--- NOTE | 2021-01-19 09:26 | Cat Scan Report ---
History: Fell with right knee injury, 70 mL fluid was drained from the knee prior to the CT TECHNIQUE: The knee was imaged without contrast in axial plane at 2.5 mm intervals. Sagittal and coronal reformats were created. Radiation exposure was limited using dose reduction technology. FINDINGS: There is an acute minimally displaced fracture of the lateral tibial plateau. The fracture is oriented in a sagittal plane. There is no significant step-off along the articular surface. There is also a nondisplaced fracture in the adjacent head of the fibula. The medial tibial plateau is intact. The femoral condyles are intact. There is a metal courtney in the femur secured with two transversely oriented screws in the distal shaft of the femur. There is no reabsorption of bone around the hardware. The patient has underlying osteoarthritis. Medial joint compartment of the knee is narrowed, indicating loss of articular cartilage. There is very little spur formation. Small residual joint effusion is present. There is moderate subcutaneous edema surrounding the knee. IMPRESSION: Lateral tibial plateau fracture and fractured head of the fibula Interpreted and Authenticated by: Carlos A Worrell 01/19/21
[2021-01-19 09:32] LABS: ALT/SGPT 14 U/L (<40); AST/SGOT 24 U/L (<32); Albumin 2.8 gm/dL (3.2-5.2); Alkaline Phosphatase 84 U/L (39-117); Bilirubin,Total 1.1 mg/dL (0.1-1.0); Blood Urea Nitrogen 24 mg/dL (8-23); Carbon Dioxide 21 mmol/L (22-30); Chloride 103 mmol/L (96-108); Globulin 2.7 gm/dL (2.2-3.7); Glomerular Filtration Rate 88; Glucose 148 mg/dL (70-105)
[2021-01-19] MEDS: INSULIN LISPRO 1 UNIT/0.01 ML UNIT SQ SCH ×4 (10:02→20:53)
[2021-01-19] MEDS: DOCUSATE SODIUM 100 MG CAPSULE PO SCH ×2 (10:10→20:55)
[2021-01-19] MEDS: ASPIRIN 81 MG TAB.CHEW CHEWED SCH ×2 (10:10→20:55)
[2021-01-19] MEDS: Dulaglutide [Trulicity] 0.75 mg/0.5 mL Pen Injector SUB-Q SCH (11:07)
[2021-01-19 15:12] LABS: Appearance,Synovial Fluid Bloody; Color,Synovial Fluid Red; Lymphocytes,Synovial Fluid 9 %; Neutrophils,Synovial Fluid 87 % (0-25); Nucleated Cells,Synovial Fld 4319 /cumm; Other Cells,Synovial Fluid 4 %
[2021-01-19] MEDS: SENNOSIDES 1 TABLET PO SCH (20:55)
[2021-01-20] MEDS: 0.9 % SODIUM CHLORIDE 10 ML SYRINGE IV SCH ×4 (00:13→22:35)
[2021-01-20] MEDS: ONDANSETRON 4 MG/2 ML VIAL IV PRN ×2 (06:26→11:32)
--- NOTE | 2021-01-20 06:34 | Orthopedic Progress Note ---
SUBJECTIVE Subjective Patient information: Note initiated : 01/20/21 at 6:25 am Service Date, if different from initiated Date: [] Patient: Anabel Marmolejo 70 y/o F admitted on 01/15/21 for Fall. Chief Complaint: [Hospital day 6. Continues to complain of knee pain and is fairly nauseous this AM from pain medication per patient. Not able to ambulate. ] Constitutional Vitals: Vital Signs Temp Pulse Resp BP Pulse Ox 98.7 F 91 H 20 115/66 94 01/20/21 03:07 01/20/21 03:07 01/20/21 03:07 01/20/21 03:07 01/20/21 03:07 Period Temp Pulse Resp BP Sys/Osorio Pulse Ox Last 24 Hr 97.7 F-99.2 F 78-96 18- 92-115/57-66 92-95 Intake and Output 01/19/21 01/20/21 01/20/21 21:59 05:59 13:59 Intake Total 800 120 Balance 800 120 Weight 164 lb 14.4 oz Intake & Output: Intake & Output 01/19/21 01/20/21 01/20/21 21:59 05:59 13:59 Intake Total 800 120 Balance 800 120 Weight 164 lb 14.4 oz Intake: Oral 800 120 Other: Meal Lunch Percent of Meal Consumed 75% Feeding Ability Independent Additional findings Additional findings: General: alert and oriented, appropriate Right wrist- in big bulkly splint, fingers perfused Right hip/knee: dressing in place and silver dressing at the knee as well. Mild joint effusion, slight valgus alignment with a scar over the medial aspect of the knee at level of patella. ROM deferred but resting at neutral. Foot warm well perfused. OBJ DATA Labs CBC & Chem 7: 01/17/21 10:00 01/19/21 08:20 Labs: Abnormal Lab Results 01/19/21 01/19/21 01/17/21 08:20 07:50 10:00 Hct 26.4 L Carbon Dioxide 21 L BUN 24 H Glucose 148 H Calcium 8.0 L Total Bilirubin 1.1 H Total Protein 5.5 L Albumin 2.8 L Synovial Neutrophils 87 H Meds: Medications Acetaminophen (Acetaminophen 325 Mg Tablet) 650 mg PO Q6HP PRN; Protocol PRN Reason: Per Pain Protocol/Fever > 101 Last Admin: 01/19/21 09:17 Dose: 650 mg Documented by: Hydrocodone Bitart/Acetaminophen (Hydrocodone/Apap 10/325mg Tablet) 1 - 2 tab PO Q4HP PRN; Protocol PRN Reason: Per Pain Protocol Aspirin (Aspirin 81 Mg Tab.Chew) 81 mg CHEWED BID [facility] Last Admin: 01/19/21 20:55 Dose: 81 mg Documented by: Bisacodyl (Bisacodyl 10 Mg Supp.Rect) 10 mg OK Q2-3DAYS PRN PRN Reason: Constipation Diagnostic Test (Pha) (Accu-Chek 1 Each Strip) 1 each FS [facility] Last Admin: 01/19/21 20:54 Dose: 1 each Documented by: Docusate Sodium (Docusate Sodium 100 Mg Capsule) 100 mg PO BID [facility] Last Admin: 01/19/21 20:55 Dose: 100 mg Documented by: Hydromorphone HCl (Hydromorphone 1 Mg/Ml Syringe) 0.5 - 2 mg IV Q2HP PRN; Protocol PRN Reason: Per Pain Protocol Last Admin: 01/19/21 08:52 Dose: 0.5 mg Documented by: Insulin Human Lispro (Insulin Lispro 1 Unit/0.01 Ml Unit) 0 unit SQ [facility]; Protocol Last Admin: 01/19/21 20:53 Dose: 2 units Documented by: Magnesium Hydroxide (Magnesium Hydroxide 30 Ml Oral.Susp) 30 ml PO BIDP PRN PRN Reason: Constipation Ondansetron HCl (Ondansetron 4 Mg/2 Ml Vial) 4 mg IV Q4HP PRN; Protocol PRN Reason: Nausea And Vomiting Last Admin: 01/19/21 09:01 Dose: 4 mg Documented by: Dulaglutide [ Trulicity] 0.75 Mg/0 .5 Ml Pen Injector 1 dose SUB-Q Tu@0900 [facility] Last Admin: 01/19/21 11:07 Dose: Not Given Documented by: Polyethylene Glycol (Polyethylene Glycol 3350 17 Gm Packet) 17 gm PO DAILYP PRN PRN Reason: Constipation Senna (Sennosides 1 Tablet) 2 tab PO HS [facility] Last Admin: 01/19/21 20:55 Dose: 2 tab Documented by: Sodium Biphosphate/Sodium Phosphate (Fleets Adult Enema) 1 dose OK Q3-4DAYS PRN PRN Reason: Constipation Sodium Chloride (0.9 % Sodium Chloride 10 Ml Syringe) 10 ml IV Q8 PAPI Last Admin: 01/20/21 00:13 Dose: 10 ml Documented by: Temazepam (Temazepam 15 Mg Capsule) 15 mg PO HSP PRN PRN Reason: Insomnia Throat Lozenges (Benzocaine/Menthol 1 Lozenge) 1 lozenge PO PRN PRN PRN Reason: Sore Throat Last Admin: 01/16/21 00:04 Dose: 1 lozenge Documented by: A/P Assessment and plan (1) Tibial plateau fracture, left: Status: Acute Comment: 71 year old female now HD 6 and status post ORIF right comminuted distal radius facture and peritrochanteric right femur fracture with new found right split depressed lateral tibial plateau fracture. CT was obtained yesterday as patient continued to complain of knee pain and inability to ambulate. --Discussed the tibial plateau fracture with the patient as Dr. Casas is out of town who has treated the other 2 fractures. The fracture as some widening of the plateau and depression but overall could be treated non operatively. However, given patients additional fractures to include upper extremity and ipsilateral hip fracture, do think it is reasonable to consider surgical intervention to stabilize the fracture which would make it a bit easier for mobilization and likely improve pain a bit faster. Discussed would still keep her foot flat weight bearing for at least 6 weeks but typically is longer. Would plan to augment with bone cement give the osteopenic appearance on the bone on CT scan. After discussion with her, she does want to proceed with surgery. Will plan for open reduction internal fixation of right tibial plateau fracture today. The fibula is comminuted on CT and will not address this surgically. Risks of surgery discussed with her along with benefits. Time Spent With Patient Time: Total time spent is greater than 50% in coordination of care (as docu mented) at patient's floor/unit and/or counseling patient:
[2021-01-20] MEDS: ACETAMINOPHEN 1,000 MG/100 ML BAG IV SCH ×3 (08:26→21:44)
[2021-01-20] MEDS: INSULIN LISPRO 1 UNIT/0.01 ML UNIT SQ SCH ×4 (08:31→21:39)
[2021-01-20] MEDS: DOCUSATE SODIUM 100 MG CAPSULE PO SCH ×2 (08:32→20:36)
[2021-01-20] MEDS: ASPIRIN 81 MG TAB.CHEW CHEWED SCH (08:32)
[2021-01-20] MEDS: DEXTROSE 5%-1/2NS W/10MEQ KCL 1,000 ML IV SCH ×2 (10:02→16:01)
[2021-01-20] MEDS: PROMETHAZINE 25 MG/ML VIAL IV PRN (14:00)
[2021-01-20] MEDS: HYDROmorphone 1 MG/ML SYRINGE IV PRN (14:11)
[2021-01-20] MEDS ORDERED: ceFAZolin 2 GM in DEXTROSE 5% IN WATER 50 ML IV SCH (15:00)
[2021-01-20] MEDS ORDERED: TRANEXAMIC ACID 1,000 MG/10 ML VIAL ONE (15:12)
[2021-01-20] MEDS ORDERED: ROPIVACAINE HCL/PF 30 ML VIAL IJ ONE (15:12)
[2021-01-20] MEDS ORDERED: DEXAMETHASONE 10 MG/ML VIAL ONE (15:12)
[2021-01-20] MEDS ORDERED: MIDAZOLAM 2 MG/2 ML VIAL ONE (15:12)
[2021-01-20] MEDS ORDERED: GLYCOPYRROLATE 0.2 MG/ML VIAL IV ONE (15:12)
[2021-01-20] MEDS ORDERED: PROPOFOL 200 MG/20 ML VIAL IV ONE (15:12)
[2021-01-20] MEDS ORDERED: ONDANSETRON 4 MG/2 ML VIAL ONE (15:12)
[2021-01-20] MEDS ORDERED: KETAMINE 50 MG/ML Syringe (ANEST) IV ONE (15:12)
[2021-01-20] MEDS ORDERED: PHENYLEPHRINE 10 MG/ML VIAL ONE (15:12)
[2021-01-20] MEDS ORDERED: fentaNYL 100 MCG/2 ML VIAL IV ONE (15:12)
[2021-01-20] MEDS ORDERED: MAGNESIUM SULFATE 2 GM/50 ML BAG IV ONE (15:12)
[2021-01-20] MEDS ORDERED: LIDOCAINE HCL/PF 100 MG/5 ML SYRINGE IV ONE (15:12)
[2021-01-20] MEDS ORDERED: VANCOMYCIN 1 GM VIAL TOPICAL SCH (16:30)
[2021-01-20] MEDS ORDERED: VANCOMYCIN 1 GM VIAL TOPICAL ONE (16:45)
[2021-01-20] MEDS ORDERED: BENZOCAINE/MENTHOL 1 LOZENGE PO PRN (16:53)
[2021-01-20] MEDS ORDERED: fentaNYL 100 MCG/2 ML VIAL IV PRN (16:53)
[2021-01-20] MEDS ORDERED: ONDANSETRON 4 MG/2 ML VIAL IV PRN (16:53)
[2021-01-20] MEDS ORDERED: ACETAMINOPHEN 1,000 MG/100 ML BAG IV ONE (16:53)
[2021-01-20] MEDS ORDERED: METHOCARBAMOL 1,000 MG/10 ML VIAL IV PRN (16:53)
[2021-01-20] MEDS ORDERED: MEPERIDINE 25 MG/ML VIAL IV PRN (16:53)
[2021-01-20] MEDS ORDERED: IPRATROPIUM/ALBUTEROL 3 ML AMPUL.NEB NEB PRN (16:53)
--- NOTE | 2021-01-20 16:54 | Brief Operative Note ---
Brief Operative Note Date of procedure: 01/20/21 Pre-op diagnosis: right knee lateral tibial plateau fracture Post-op diagnosis: same Procedure: ORIF right lateral tibial plateau fracture Grafts/Implants: Yes Anesthesia: GETA Findings: split fracture of lateral tibial plateau fracture, has significant knee hyper extension. Complications: none Surgeon: Nichole Morales Waiter/Waitress Room Service: Murray Adler Estimated blood loss (cc): 20 Tourniquet Time (Minutes): 75 Specimens Removed/Pathology: none sent Condition: stable Disposition: PACU
[2021-01-20] MEDS ORDERED: METHOCARBAMOL 750 MG TABLET PO PRN (16:57)
[2021-01-20] MEDS ORDERED: oxyCODONE HCL 5 MG TABLET PO PRN (16:57)
[2021-01-20] MEDS ORDERED: LACTATED RINGERS 1,000 ML IV SCH (17:00)
--- NOTE | 2021-01-20 17:04 | XRay Report ---
HISTORY: FINDINGS: IMPRESSION: 0.8 minutes of fluoroscopy time was used. Interpreted and Authenticated by: Carlos A Worrell 01/20/21
[2021-01-20] MEDS ORDERED: DEXTROSE 31 GM ORAL.SUSP PO PRN ×2 (17:09→20:58)
[2021-01-20] MEDS ORDERED: DEXTROSE 50% 50 ML VIAL IV PRN ×2 (17:09→20:58)
--- NOTE | 2021-01-20 17:43 | XRay Report ---
HISTORY: Postop open reduction internal fixation of lateral tibial plateau fracture FINDINGS: There is good alignment following open reduction internal fixation of the fracture through the lateral tibial plateau. The bone fragments are held in good alignment using metal plate and screws. The mild depression seen preoperatively has been corrected. Joint spaces are normal in width. The fracture through the neck of the fibula is well aligned. IMPRESSION: Good alignment following surgical reduction of the fractured lateral tibial plateau Interpreted and Authenticated by: Carlos A Worrell 01/20/21
[2021-01-20] MEDS: 0.9 % SODIUM CHLORIDE 1,000 ML IV SCH (17:57)
[2021-01-20] MEDS: SENNOSIDES 1 TABLET PO SCH (20:35)
[2021-01-20] MEDS: BENZOCAINE/MENTHOL 1 LOZENGE PO PRN (20:36)
[2021-01-20] MEDS ORDERED: INSULIN LISPRO 1 UNIT/0.01 ML UNIT SQ SCH ×2 (21:00)
[2021-01-20] MEDS ORDERED: INSULIN LISPRO 1 UNIT/0.01 ML UNIT SQ ONE (21:08)
[2021-01-20] MEDS: ceFAZolin 1 GM VIAL IV SCH (23:38)
[2021-01-21] MEDS: ACETAMINOPHEN 1,000 MG/100 ML BAG IV SCH ×3 (05:45→21:57)
[2021-01-21] MEDS: 0.9 % SODIUM CHLORIDE 10 ML SYRINGE IV SCH ×2 (05:51→13:27)
[2021-01-21 06:21] LABS: Hematocrit 24.8 % (34.1-44.9); Hemoglobin 7.9 g/dL (11.2-15.7)
[2021-01-21] MEDS: 0.9 % SODIUM CHLORIDE 1,000 ML IV SCH ×2 (07:28→21:48)
[2021-01-21] MEDS: HYDROmorphone 1 MG/ML SYRINGE IV PRN (07:44)
[2021-01-21] MEDS: ceFAZolin 1 GM VIAL IV SCH (07:47)
--- NOTE | 2021-01-21 07:51 | Orthopedic Progress Note ---
SUBJECTIVE Subjective Patient information: Note initiated : 01/21/21 at 7:46 am Service Date, if different from initiated Date: [] Patient: Anabel Marmolejo 70 y/o F admitted on 01/15/21 for Fall. She is 6 days status post ORIF of a right distal radius fracture as well as a right subtrochanteric femur fracture with Dr. Casas. She is postop day #1 following ORIF of a right tibial plateau fracture with Dr. Morales. Overall no acute issues overnight. She admits to pain in the right knee along with nausea and some reflux however denies chest pain, shortness of breath, fever/chills. Ove rall she states her pain is managed. Chief Complaint: [Right knee pain.] Constitutional Vitals: Vital Signs Temp Pulse Resp BP Pulse Ox 97.3 F 80 14 115/68 96 01/21/21 07:30 01/21/21 07:30 01/21/21 07:30 01/21/21 07:30 01/21/21 07:30 Period Temp Pulse Resp BP Sys/Osorio Pulse Ox Last 24 Hr 97 F-98.6 F 79-102 7- 110-160/63-90 88-98 Intake and Output 01/20/21 01/21/21 01/21/21 21:59 05:59 13:59 Intake Total 2049 100 Output Total 550 700 Balance 1500 -600 Weight 169 lb 6.4 oz Intake & Output: Intake & Output 01/20/21 01/21/21 01/21/21 21:59 05:59 13:59 Intake Total 2049 100 Output Total 550 700 Balance 1500 -600 Weight 169 lb 6.4 oz Intake: IV 1150 100 Dextrose 5%-1/2Ns W/10Meq KCl 1 1000 ,000 ml @ 100 mls/hr IV .Q10H PAPI Rx#:[id number] Ancef 2 gm In Dextrose 5% in 50 Water 50 ml @ 100 mls/hr IV PREOP PAPI Rx#:[id number] Oral 0 IV - Manual Only 900 Output: Urine Catheter Amount 550 700 Other: Urine Appearance Clear Clear Urine Color Dark Iris Dark Yellow Extremities Exam Extremities exam: Present pedal edema, Foot pink and warm and neurovascular intact; Absent calf tenderness and Apollo's sign Additional comments: Right upper extremity splint in place it is clean and dry. Dressing over right hip is clean and dry. Colt wrap is in place over right lower extremity with hinged knee Shushan in place. Wrap is clean dry and intact. Full range of motion of the foot and ankle. NVIT distally. Foot is warm and well- perfused with palpable DP pulse. OBJ DATA Labs CBC & Chem 7: 01/21/21 05:22 01/19/21 08:20 Labs: Abnormal Lab Results 01/21/21 01/19/21 01/19/21 05:22 08:20 07:50 Hgb 7.9 L Hct 24.8 L Carbon Dioxide 21 L BUN 24 H Glucose 148 H Calcium 8.0 L Total Bilirubin 1.1 H Total Protein 5.5 L Albumin 2.8 L Synovial Neutrophils 87 H Meds: Medications Bisacodyl (Bisacodyl 10 Mg Supp.Rect) 10 mg SC Q2-3DAYS PRN PRN Reason: Constipation Dextrose (Dextrose 50% 50 Ml Vial) 0 ml IV UD PRN PRN Reason: Hypoglycemia Diagnostic Test (Pha) (Accu-Chek 1 Each Strip) 1 each FS [facility] Last Admin: 01/20/21 21:07 Dose: 1 each Documented by: Docusate Sodium (Docusate Sodium 100 Mg Capsule) 100 mg PO BID [facility] Last Admin: 01/20/21 20:36 Dose: 100 mg Documented by: Enoxaparin Sodium (Enoxaparin 40 Mg/0.4 Ml Syringe) 40 mg SQ DAILY [facility] Glucose (Dextrose 31 Gm Oral.Susp) 15 gm PO PRN PRN PRN Reason: Hypoglycemia Hydromorphone HCl (Hydromorphone 1 Mg/Ml Syringe) 0.5 - 2 mg IV Q2HP PRN; Protocol PRN Reason: Per Pain Protocol Last Admin: 01/21/21 07:44 Dose: 0.5 mg Documented by: Acetaminophen (Ofirmev) 1,000 mg in 100 mls @ 200 mls/hr IV Q8 PAPI; Protocol Last Admin: 01/21/21 05:45 Dose: 100 mls/hr Documented by: Sodium Chloride (Sodium Chloride 0.9%) 1,000 mls @ 75 mls/hr IV .[id number] [facility] Last Admin: 01/21/21 07:28 Dose: 75 mls/hr Documented by: Insulin Human Lispro (Insulin Lispro 1 Unit/0.01 Ml Unit) 0 unit SQ [facility]; Protocol Last Admin: 01/20/21 21:39 Dose: Not Given Documented by: Magnesium Hydroxide (Magnesium Hydroxide 30 Ml Oral.Susp) 30 ml PO BIDP PRN PRN Reason: Constipation Methocarbamol (Methocarbamol 500 Mg Tablet) 500 mg PO TIDP PRN PRN Reason: Muscle Spasm Methocarbamol (Methocarbamol 750 Mg Tablet) 750 mg PO Q6HP PRN PRN Reason: Muscle Spasm Ondansetron HCl (Ondansetron 4 Mg/2 Ml Vial) 4 mg IV Q4HP PRN; Protocol PRN Reason: Nausea And Vomiting Last Admin: 01/20/21 11:32 Dose: 4 mg Documented by: Oxycodone HCl (Oxycodone Hcl 5 Mg Tablet) 0 mg PO Q4HP PRN; Protocol PRN Reason: Per Pain Protocol Dulaglutide [ Trulicity] 0.75 Mg/0 .5 Ml Pen Injector 1 dose SUB-Q Tu@0900 [facility] Last Admin: 01/19/21 11:07 Dose: Not Given Documented by: Polyethylene Glycol (Polyethylene Glycol 3350 17 Gm Packet) 17 gm PO DAILYP PRN PRN Reason: Constipation Promethazine HCl (Promethazine 25 Mg/Ml Vial) 12.5 mg IV Q6HP PRN PRN Reason: Nausea And Vomiting Last Admin: 01/20/21 14:00 Dose: 12.5 mg Documented by: Senna (Sennosides 1 Tablet) 2 tab PO [facility] Last Admin: 01/20/21 20:35 Dose: 2 tab Documented by: Sodium Biphosphate/Sodium Phosphate (Fleets Adult Enema) 1 dose SC Q3-4DAYS PRN PRN Reason: Constipation Sodium Chloride (0.9 % Sodium Chloride 10 Ml Syringe) 10 ml IV Q8 [facility] Last Admin: 01/21/21 05:51 Dose: Not Given Documented by: Temazepam (Temazepam 15 Mg Capsule) 15 mg PO HSP PRN PRN Reason: Insomnia Throat Lozenges (Benzocaine/Menthol 1 Lozenge) 1 lozenge PO PRN PRN PRN Reason: Sore Throat Last Admin: 01/20/21 20:36 Dose: 1 lozenge Documented by: A/P Assessment and plan (1) Tibial plateau fracture, left: Status: Acute Comment: 71 year old female now HD 6 and status post ORIF right comminuted distal radius facture and peritrochanteric right femur, as well as postop day #1 following ORIF of a lateral tibial plateau fracture. --Keep splint in place on right upper extremity. Keep clean and dry. -PT/OT: Nonweightbearing right upper extremity as well as right lower extremity. --Continue pain medications --Continue diet --Dressing change to right lower extremity if more than 50% saturated. Replace with new silver dressing. --prophy: Lovenox, IS, SCDs, foot pumps. --dispo: SNF (2) Distal radius fracture, right: Status: Acute (3) Closed subtrochanteric fracture of femur: Status: Acute Time Spent With Patient Time: Total time spent is greater than 50% in coordination of care (as documented) at patient's floor/unit and/or counseling patient:
[2021-01-21] MEDS: INSULIN LISPRO 1 UNIT/0.01 ML UNIT SQ SCH ×4 (08:00→21:47)
--- NOTE | 2021-01-21 08:20 | Operative Note ---
DATE OF OPERATION: 01/20/2021 PREOPERATIVE DIAGNOSIS: Right lateral tibial plateau fracture. POSTOPERATIVE DIAGNOSIS: Right lateral tibial plateau fracture. PROCEDURE PERFORMED: Open reduction internal fixation of lateral tibial plateau fracture. SURGEON: Nichole Morales M.D. CUTTING TABLE OPERATOR FIRST: Murray Adler PA-C. This providers expertise and technical skill were required throughout the case. The PA assisted with preoperative coordination, intraoperative retraction, wound closure, and dressing and splint application, as well as postoperative documentation and care coordination. ANESTHESIA: General. INTRAVENOUS FLUIDS: 1200 mL lactated Ringer's. ESTIMATED BLOOD LOSS: Minimal. TOURNIQUET TIME: 1 hour 50 minutes at 250 mmHg. IMPLANTS: A short bend 3-hole proximal tibial plate from [employer]. ANTIBIOTICS: 2 grams Ancef. INTRAOPERATIVE COMPLICATIONS: None apparent. PATHOLOGY TO LAB: None. INDICATIONS FOR PROCEDURE: The patient is a 70-year-old female who sustained a fall, now approximately 6-7 days ago. At that time she was evaluated by Dr. Fernández and treated for a right hip fracture with a cephalomedullary device as well as the comminuted distal radius fracture of the right side with a volar locking plate. She subsequently continued to complain about pain in the knee and a CT was completed, demonstrating a proximal right lateral tibial plateau fracture. Given that fact that Dr. Fernández was out of town and I was compensation expert, I elected to discuss the case with the patient. I discussed the injury with the patient and that the fracture itself on CT is not overly displaced; however, given the combination of the fracture of the hip and wrist, I do think that there is some benefit to operative intervention to stabilize the fracture and allow for improved mobilization; however, there are risks associated with surgery, which she understands. Given her options, she does want to proceed with surgery. DESCRIPTION OF PROCEDURE: Patient was met in the preoperative holding area where the site was verified and marked with the patient's input. She was subsequently taken back to the operating room where she underwent successful general anesthesia. Her right lower extremity had a silver dressing for the distal interlocks, which was removed. The leg had a well-padded tourniquet placed on proximal thigh and then was cleaned with chlorhexidine wipes. There was noted a heel pressure ulcer, which has dressing as well as a sacral decubitus ulcer that developed, stage I-II. There are no skin breaks, but it was definitely darkened and concerning. The right lower extremity was then prepped and draped in the usual sterile fashion with ChloraPrep. Surgical timeout was performed to verify patient's identity, correct procedure being performed, and correct extremity being operated on. Everybody was in agreement. Esmarch was utilized to exsanguinate the extremity, tourniquet was inflated to 250 mmHg. I created a linear incision over the lateral aspect of the knee, extending from just proximal to the joint line over Gerdy's tubercle along the anterolateral compartment of the leg. Skin was sharply incised. IT band was identified as well as the anterior compartment of the fascia. This was incised in line with the fibers and elevated off of Gerdy's tubercle anteriorly and posteriorly. This did localize the fracture and was relatively mobile, more so than what I expected given the CT findings. This was reducible with direct pressure. Given that, I placed a K-wire to hold it in a reduced fashion. I created a capsulotomy horizontal in nature, deep to the lateral meniscus and elevated up to ensure there was no comminuted depressed fragment, which I did not appreciate. Given that, I placed a short plate over the lateral aspect of the tibial plateau, a short bend fit the best. I placed this at the joint line itself. I placed two K-wires to hold this and verified underneath fluoroscopy and then placed a 3.5 cortical nonlocking screw in the oblong hole as well as 2 cortical nonlocking screws in the proximal holes and rafting screws to compress the fracture additionally and overall it appeared to be anatomic on the radiographs as well as clinically. Given that, I placed the remainder of the screws in a locking fashion parallel to the joint. I placed an additional locking screw in the shaft and one most inferiorly along the kickstand screw in a locking fashion. Her bone quality was very poor and osteoporotic in nature. Once this was complete, the wound was copiously irrigated with IrriSept and normal saline. I placed 1 gram vancomycin powder deep in the wound. The IT band was closed with 0 Vicryl in interrupted and running fashion combination, subcutaneous tissue with 3-0 Vicryl and skin closed with sha. The leg was then cleaned and dried. We placed a silver dressing to include the distal interlock screws for the cephalomedullary nail. The leg was then wrapped in an Colt wrap and placed into a hinged knee brace locked in extension. POSTOPERATIVE PLAN: The patient will be admitted back to the floor. She will be foot flat weightbearing only, this for 6 weeks, but can begin range of motion. DLW:patricia Job ID: [id number] Doc ID: [id number] Nichole Morales MD [facility]
[2021-01-21] MEDS: PROMETHAZINE 25 MG/ML VIAL IV PRN ×3 (09:06→21:59)
[2021-01-21] MEDS: DOCUSATE SODIUM 100 MG CAPSULE PO SCH ×2 (09:23→22:32)
[2021-01-21] MEDS: ENOXAPARIN 40 MG/0.4 ML SYRINGE SQ SCH (09:23)
[2021-01-21] MEDS: SENNOSIDES 1 TABLET PO SCH (22:32)
[2021-01-22] MEDS: 0.9 % SODIUM CHLORIDE 10 ML SYRINGE IV SCH ×4 (01:26→21:14)
[2021-01-22] MEDS: ONDANSETRON 4 MG/2 ML VIAL IV PRN (03:00)
[2021-01-22] MEDS: OMEPRAZOLE 20 MG CAPSULE PO SCH ×2 (03:20→07:49)
[2021-01-22] MEDS ORDERED: OMEPRAZOLE 20 MG CAPSULE PO ONE (03:22)
[2021-01-22] MEDS: ACETAMINOPHEN 1,000 MG/100 ML BAG IV SCH ×3 (05:54→21:13)
--- NOTE | 2021-01-22 06:59 | Orthopedic Progress Note ---
SUBJECTIVE Subjective Patient information: Note initiated : 01/22/21 at 6:49 am Service Date, if different from initiated Date: [] Patient: Anabel Marmolejo 70 y/o F admitted on 01/15/21 for Fall. Chief Complaint: [continues to complain of nausea, unable to keep fluid down, denies shortness of breath, chest pain or dizziness. Has not been out of bed. +flatus but not bowel movement] Constitutional Vitals: Vital Signs Temp Pulse Resp BP Pulse Ox 97.6 F 94 H 14 117/69 95 01/22/21 06:47 01/22/21 06:47 01/22/21 06:47 01/22/21 06:47 01/22/21 06:47 Period Temp Pulse Resp BP Sys/Osorio Pulse Ox Last 24 Hr 97.3 F-99.1 F 80-94 14-20 103-117/61-69 89-96 Intake and Output 01/21/21 01/22/21 01/22/21 21:59 05:59 13:59 Intake Total 1340 100 Output Total 700 1200 Balance 640 -1100 Weight 167 lb 7 oz Intake & Output: Intake & Output 01/21/21 01/22/21 01/22/21 21:59 05:59 13:59 Intake Total 1340 100 Output Total 700 1200 Balance 640 -1100 Weight 167 lb 7 oz Intake: IV 1100 100 Sodium Chloride 0.9% 1,000 ml @ 1000 75 mls/hr IV .[id number] [facility] Rx#: [id number] Oral 240 Output: Urine Catheter Amount 450 650 Emesis 250 550 Other: Urine Appearance Clear Clear Reinserted Fuller Clear Urine Color Dark Yellow Dark Yellow Reinserted Fuller Dark Yellow Additional findings Additional findings: General: alert, oriented, appropriate right wrist: bulky splint in place, fingers warm well perfused Right hip/Knee: dressing in place and without strikethrough. foot warm well perfused, sensation intatact OBJ DATA Labs CBC & Chem 7: 01/21/21 05:22 01/19/21 08:20 Labs: Abnormal Lab Results 01/21/21 01/19/21 01/19/21 05:22 08:20 07:50 Hgb 7.9 L Hct 24.8 L Carbon Dioxide 21 L BUN 24 H Glucose 148 H Calcium 8.0 L Total Bilirubin 1.1 H Total Protein 5.5 L Albumin 2.8 L Synovial Neutrophils 87 H Meds: Medications Bisacodyl (Bisacodyl 10 Mg Supp.Rect) 10 mg ID Q2-3DAYS PRN PRN Reason: Constipation Dextrose (Dextrose 50% 50 Ml Vial) 0 ml IV UD PRN PRN Reason: Hypoglycemia Diagnostic Test (Pha) (Accu-Chek 1 Each Strip) 1 each FS [facility] Last Admin: 01/21/21 21:47 Dose: 1 each Documented by: Docusate Sodium (Docusate Sodium 100 Mg Capsule) 100 mg PO BID [facility] Last Admin: 01/21/21 22:32 Dose: Not Given Documented by: Enoxaparin Sodium (Enoxaparin 40 Mg/0.4 Ml Syringe) 40 mg SQ DAILY [facility] Last Admin: 01/21/21 09:23 Dose: 40 mg Documented by: Glucose (Dextrose 31 Gm Oral.Susp) 15 gm PO PRN PRN PRN Reason: Hypoglycemia Hydromorphone HCl (Hydromorphone 1 Mg/Ml Syringe) 0.5 - 2 mg IV Q2HP PRN; Protocol PRN Reason: Per Pain Protocol Last Admin: 01/21/21 07:44 Dose: 0.5 mg Documented by: Acetaminophen (Ofirmev) 1,000 mg in 100 mls @ 200 mls/hr IV Q8 [facility]; Protocol Last Admin: 01/22/21 05:54 Dose: 200 mls/hr Documented by: Sodium Chloride (Sodium Chloride 0.9%) 1,000 mls @ 75 mls/hr IV .[id number] [facility] Last Admin: 01/21/21 21:48 Dose: 75 mls/hr Documented by: Insulin Human Lispro (Insulin Lispro 1 Unit/0.01 Ml Unit) 0 unit SQ [facility]; Protocol Last Admin: 01/21/21 21:47 Dose: Not Given Documented by: Magnesium Hydroxide (Magnesium Hydroxide 30 Ml Oral.Susp) 30 ml PO BIDP PRN PRN Reason: Constipation Methocarbamol (Methocarbamol 500 Mg Tablet) 500 mg PO TIDP PRN PRN Reason: Muscle Spasm Omeprazole (Omeprazole 20 Mg Capsule) 20 mg PO ACB [facility] Last Admin: 01/22/21 03:20 Dose: 20 mg Documented by: Ondansetron HCl (Ondansetron 4 Mg/2 Ml Vial) 4 mg IV Q4HP PRN; Protocol PRN Reason: Nausea And Vomiting Last Admin: 01/22/21 03:00 Dose: 4 mg Documented by: Oxycodone HCl (Oxycodone Hcl 5 Mg Tablet) 0 mg PO Q4HP PRN; Protocol PRN Reason: Per Pain Protocol Dulaglutide [ Trulicity] 0.75 Mg/0 .5 Ml Pen Injector 1 dose SUB-Q Tu@0900 [facility] Last Admin: 01/19/21 11:07 Dose: Not Given Documented by: Polyethylene Glycol (Polyethylene Glycol 3350 17 Gm Packet) 17 gm PO DAILYP PRN PRN Reason: Constipation Promethazine HCl (Promethazine 25 Mg/Ml Vial) 12.5 mg IV Q6HP PRN PRN Reason: Nausea And Vomiting Last Admin: 01/21/21 21:59 Dose: 12.5 mg Documented by: Senna (Sennosides 1 Tablet) 2 tab PO HS [facility] Last Admin: 01/21/21 22:32 Dose: Not Given Documented by: Sodium Biphosphate/Sodium Phosphate (Fleets Adult Enema) 1 dose ID Q3-4DAYS PRN PRN Reason: Constipation Sodium Chloride (0.9 % Sodium Chloride 10 Ml Syringe) 10 ml IV Q8 [facility] Last Admin: 01/22/21 06:27 Dose: Not Given Documented by: Temazepam (Temazepam 15 Mg Capsule) 15 mg PO HSP PRN PRN Reason: Insomnia Throat Lozenges (Benzocaine/Menthol 1 Lozenge) 1 lozenge PO PRN PRN PRN Reason: Sore Throat Last Admin: 01/20/21 20:36 Dose: 1 lozenge Documented by: A/P Assessment and plan (1) Tibial plateau fracture, left: Status: Acute Comment: 71 year old female now post op ORIF right comminuted distal radius facture and peritrochanteric right femur, as well as postop day #2 following ORIF of a lateral tibial plateau fracture. --Non weight bearing to right wrist but can use a forearm walker for weight bearing --Non weight right lower extremity given tibial plateau fracture --------PT/OT - ROM 0-90 degrees for the knee, heel slides, quad sets, straight leg raises all ok out of the brace. Brace when attempting to ambulate/transfer --- Discussed with patient she needs to get up and sit in chair at least today -- Main issue is nausea, unable to keep food down ------zofran/phenergan/omeprazole which have failed to improve symptoms, not taking the oral pain meds, is have flatus but no bowel movement yet ----consulted Hospitalist to aid in this regard --Pending H/H this AM will likely transfuse --Pressure ulcers (right heal and sacrum)- frequent turns, wound nurse consulted as well --Will keep fuller until patient can transfer as she was sitting in her urine prior to surgery as she refused to move --Prophy: lovenox, IS, foot pumps, mobilize as possible --Dispo: pending but needs SNF (2) Distal radius fracture, right: Status: Acute (3) Closed subtrochanteric fracture of femur: Status: Acute Time Spent With Patient Time: Total time spent is greater than 50% in coordination of care (as documented) at patient's floor/unit and/or counseling patient:
[2021-01-22 07:02] LABS: Hematocrit 25.1 % (34.1-44.9); Hemoglobin 7.9 g/dL (11.2-15.7)
--- NOTE | 2021-01-22 07:28 | Internal Medicine Consult Note ---
HPI Data of Consult Consult date: 01/22/21 Primary Care Provider: Maya Bustos Consult Narrative cc:: CC: Akshat Casas Patient admitted on the after fall down her stairs resulting in multiple fractures. On 01/18 she had ORIF of the distal radius and the right hip. On 01/20 she had ORIF of the right tibial plateau. She has had some postop anemia with hemoglobin 7.9 today was 7.9 yesterday. She is had nausea vomiting heartburn. Also generalized weakness and not getting out of bed. For these reasons hospitalist was consulted. She has been getting IV fluid. BUN is mildly elevated from a few days ago with a normal creatinine. Speak with patient she says she does have chronic nausea and pyrosis but that has been much worse here. Is aggravated by food medications and movement. She denies diarrhea. She does complain of some epigastric achiness. Patient states she has a poor appetite because of nausea. performed FUENTES without gross blood, hard stool noted in rectal vault. Review of Systems: Pertinent positives as above. Denies headache/fever/chills/chest or abdominal pain/cough/dyspnea. Remaining 10 point review of system reviewed negative PFSH PFSH All Active Problems (Updated 01/22/21 @ 06:59 by Nichole Morales MD) Tibial plateau fracture, left (Acute) Distal radius fracture, right (Acute) Closed subtrochanteric fracture of femur (Acute) Back pain, thoracic (Acute) Nicotine addiction (Chronic) Obesity (Chronic) Age-related osteoporosis with current pathol fracture of vertebra (Acute) No pertinent past surgical history (Chronic) Glaucoma (Chronic) Vertigo (Chronic) Hypokalemia (Chronic) GERD (gastroesophageal reflux disease) (Chronic) Osteopenia (Chronic) Knee pain (Chronic) Toe pain (Chronic) Multinodular goiter (Chronic) Diabetes mellitus (Chronic) Hyperlipidemia (Chronic) Amenorrhea (Chronic) Patellar contusion (Chronic) Injury of meniscus of left knee (Chronic) Knee effusion, left (Chronic) Closed compression fracture of thoracic vertebra (Chronic) Medical History Age-related osteoporosis with current pathol fracture of vertebra Amenorrhea Back pain, thoracic Diabetes mellitus GERD (gastroesophageal reflux disease) Glaucoma Hyperlipidemia Hypokalemia Injury of meniscus of left knee Knee effusion, left Knee pain Multinodular goiter Nicotine addiction Obesity Osteopenia Patellar contusion Toe pain Vertigo Surgical History History of arthroscopic knee surgery Family History Father Hypertension Heart disease Alcohol abuse Mother Hypertension Arthritis Social History (Updated 04/27/20 @ 12:31 by Lyla Bonilla) marital status: education level: high school occupational status: 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 alcohol intake frequency: does not drink substance use type: does not use MEDS/ALLERGIES Home Medications and Allergies Home Medications Medication Instructions Recorded Confirmed Type aspirin [Ecotrin Low Strength] 81 mg PO BID #60 tab 01/15/21 Rx docusate sodium 100 mg PO BID #60 cap 01/15/21 Rx dulaglutide [Trulicity] 0.75 mg SUBCUT WEEKLY 01/15/21 01/15/21 History oxycodone-acetaminophen 1 - 2 tab PO Q4H PRN #75 tab MDD 8 01/15/21 Rx Allergies Allergy/AdvReac Type Severity Reaction Status Date / Time hydrocodone AdvReac Mild Vomiting Verified 01/15/21 20:21 EXAM Constitutional Vitals: Temp Pulse Resp BP Pulse Ox 97.6 F 94 H 14 117/69 95 01/22/21 06:47 01/22/21 06:47 01/22/21 06:47 01/22/21 06:47 01/22/21 06:47 Exam: General: Alert, Awake, No acute Distress Eyes/N/T: EOMI, Head/Neck: neck supple, CV: RRR, No murmurs, Pulm: Clear b/l, no wheezing/rhonchi/rales Abd: soft, mild epigastric TTP, +BS x4 Ext: no clubbing/cyanosis/edema Neuro: Alert, no focal deficits, moves all extremities, Skin: warm/dry DATA Data Completed and Pending Labs: Labs from last 24 hours 01/22/21 05:35 Hgb 7.9 L Hct 25.1 L Preliminary micro results at discharge 01/19/21 07:50 Gram Stain - Preliminary Synovial Fluid - Knee Anaerobic Culture - Preliminary A/P Narrative A/P Narrative: A: *Nausea(acute on chronic)/Vomiting/mild epigastric discomfort: GERD contributing -pt states she does get dizzy and home on occasion -AXR unremarkable *GERD/Pyrosis: possibly some gastritis or esophagitis *Generalized weakness/FTT/Debility: from multiple fx's -anemia contributing to weakness *Acute blood loss anemia: 2/ Fall/Fx's/surgery -FOBT negative *DM: *Multiple right side Fxs from Fall down stairs: s/p ORIF (01/18 & 01/20) *Constipation: P: -prbc transfusion -ppi -carafate -on IVF but will d/c -SSI -bowel regimen, enema prn -pt/ot, encourage movement -CM for placement needs -ppx: lovenox per ortho Time Spent With Patient Time: Total time spent is greater than 50% in coordination of care (as documented) at patient's floor/unit and/or counseling patient:
[2021-01-22] MEDS: INSULIN LISPRO 1 UNIT/0.01 ML UNIT SQ SCH ×4 (07:53→21:19)
[2021-01-22 08:02] LABS: ALT/SGPT 10 U/L (<40); AST/SGOT 17 U/L (<32); Albumin 2.7 gm/dL (3.2-5.2); Albumin/Globulin Ratio 1.1 (1.0-2.3); Alkaline Phosphatase 77 U/L (39-117); Bilirubin,Direct 0.4 mg/dL (<0.3); Bilirubin,Total 0.9 mg/dL (0.1-1.0); Blood Urea Nitrogen 18 mg/dL (8-23); Calcium 7.4 mg/dL (8.6-10.4); Carbon Dioxide 19 mmol/L (22-30); Chloride 104 mmol/L (96-108); Globulin 2.4 gm/dL (2.2-3.7); Glomerular Filtration Rate 93; Glucose 100 mg/dL (70-105); Lactate Dehydrogenase 177 U/L (135-225); Phosphorous 3.1 mg/dL (2.5-4.5); Triglycerides 177 mg/dL (<150); Uric Acid 5.3 mg/dL (2.5-8.0)
[2021-01-22] MEDS ORDERED: diphenhydrAMINE 50 MG/ML VIAL IV PRN (08:33)
--- NOTE | 2021-01-22 08:39 | XRay Report ---
HISTORY: Fell, nausea and vomiting FINDINGS: Supine and left lateral decubitus views were obtained. The bowel gas pattern is normal. There is no free abdominal air. No soft tissue mass is seen and there are no abnormal calcifications. There is linear scarring or discoid atelectasis in both lung bases. Moderate amount of calcified plaque is present in the aorta. IMPRESSION: No acute abnormality Interpreted and Authenticated by: Carlos A Worrell 01/22/21
[2021-01-22] MEDS: DOCUSATE SODIUM 100 MG CAPSULE PO SCH ×2 (10:06→21:14)
[2021-01-22] MEDS: ENOXAPARIN 40 MG/0.4 ML SYRINGE SQ SCH (10:06)
[2021-01-22] MEDS: METOCLOPRAMIDE 10 MG/2 ML VIAL IV PRN (10:07)
[2021-01-22] MEDS ORDERED: MECLIZINE 25 MG TABLET PO ONE (10:22)
[2021-01-22] MEDS ORDERED: SUCRALFATE 1 GM/10 ML ORAL.SUSP PO ONE (10:42)
[2021-01-22] MEDS: SCOPOLAMINE 1 PATCH PATCH TOPICAL SCH ×2 (11:44→13:42)
[2021-01-22] MEDS: SUCRALFATE 1 GM/10 ML ORAL.SUSP PO SCH ×3 (11:44→21:14)
[2021-01-22 15:31] LABS: Appearance,Urine CLEAR (Clear); Bilirubin,Urine Negative (Negative); Color,Urine YELLOW; Culture Indicated,Urine No; Glucose,Urine (UA) 50 mg/dL (Negative); Ketones,Urine 80 mg/dL (Negative); Leukocyte Esterase,Urine Negative /ug (Negative); Nitrate,Urine Negative (Negative); Protein,Urine Negative (Negative); Specific Gravity,Urine 1.021 (1.000-1.035); Urine RBC 12 /hpf (0-3); Urine Squamous Epithelial Cell 2 /hpf (0-4); Urine Transitional Epi Cells < 1 /hpf (0-2); Urine WBC 3 /hpf (0-4); Urobilinogen,Urine Negative
[2021-01-22] MEDS: PANTOPRAZOLE 40 MG PACKET PO SCH (17:11)
[2021-01-22 18:14] LABS: Sodium, Urine Random 189 mmol/L
[2021-01-22] MEDS: SENNOSIDES 1 TABLET PO SCH (21:14)
[2021-01-23] MEDS: ACETAMINOPHEN 1,000 MG/100 ML BAG IV SCH ×4 (05:44→21:28)
[2021-01-23] MEDS: 0.9 % SODIUM CHLORIDE 10 ML SYRINGE IV SCH ×3 (05:46→21:28)
--- NOTE | 2021-01-23 07:29 | Internal Med Progress Note ---
SUBJECTIVE Subjective Patient information: Note initiated : 01/23/21 at 7:26 am Service Date, if different from initiated Date: [] Patient: Anabel Marmolejo 70 y/o F admitted on 01/15/21 for Fall. Chief Complaint: [] Interval history: Patient admitted on the after fall down her stairs resulting in multiple fractures. On 01/18 she had ORIF of the distal radius and the right hip. On 01/20 she had ORIF of the right tibial plateau. She has had some postop anemia with hemoglobin 7.9 today was 7.9 yesterday. She is had nausea vomiting heartburn. Also generalized weakness and not getting out of bed. For these reasons hospitalist was consulted. She has been getting IV fluid. BUN is mildly elevated from a few days ago with a normal creatinine. Speak with patient she says she does have chronic nausea and pyrosis but that has been much worse here. Is aggravated by food medications and movement. She denies diarrhea. She does complain of some epigastric achiness. Patient states she has a poor appetite because of nausea. performed FUENTES without gross blood, hard stool noted in rectal vault. 01/23 Feeling better today. No nausea or vomiting. Tolerating diet. Encouraged her to work with PT today. had good BM yesterday. Review of Systems: denies headache/fever/chills/nausea/vomiting/chest or abdominal pain/cough/dyspnea/diarrhea. Otherwise see above. Constitutional Vitals: Vital Signs Temp Pulse Resp BP Pulse Ox 98.2 F 82 18 124/71 93 01/23/21 03:17 01/23/21 03:17 01/23/21 03:17 01/23/21 03:17 01/23/21 06:29 Period Temp Pulse Resp BP Sys/Osorio Pulse Ox Last 24 Hr 97.1 F-98.3 F 79-89 15-18 106-124/63-71 91-96 Intake and Output 01/22/21 01/23/21 01/23/21 21:59 05:59 13:59 Intake Total 200 120 100 Output Total 550 300 Balance -350 -180 100 Weight 72.529 kg Intake & Output: Intake & Output 01/22/21 01/23/21 01/23/21 21:59 05:59 13:59 Intake Total 200 120 100 Output Total 550 300 Balance -350 -180 100 Weight 72.529 kg Intake: IV 200 100 Oral 120 Output: Urine Catheter Amount 550 300 Other: Urine Appearance Clear Urine Color Dark Yellow Dark Yellow Urine Odor Normal Exam: General: Alert, Awake, No acute Distress Eyes/N/T: EOMI, Head/Neck: neck supple, CV: RRR, No murmurs, Pulm: Clear b/l, no wheezing/rhonchi/rales Abd: soft, mild epigastric TTP, +BS x4 Ext: no clubbing/cyanosis/edema Neuro: Alert, no focal deficits, moves all extremities, Skin: warm/dry OBJ DATA Labs CBC & Chem 7: 01/23/21 05:25 01/22/21 05:35 Labs: Abnormal Lab Results 01/22/21 01/22/21 01/22/21 13:50 05:35 05:35 Hgb 7.9 L Hct 25.1 L Carbon Dioxide 19 L Calcium 7.4 L Direct Bilirubin 0.4 H Total Protein 5.1 L Albumin 2.7 L Triglycerides 177 H Urine Glucose (UA) 50 A Urine Ketones 80 A Urine RBC 12 H 01/21/21 05:22 Hgb 7.9 L Hct 24.8 L Carbon Dioxide Calcium Direct Bilirubin Total Protein Albumin Triglycerides Urine Glucose (UA) Urine Ketones Urine RBC Meds: Medications Bisacodyl (Bisacodyl 10 Mg Supp.Rect) 10 mg DE Q2-3DAYS PRN PRN Reason: Constipation Dextrose (Dextrose 50% 50 Ml Vial) 0 ml IV UD PRN PRN Reason: Hypoglycemia Diagnostic Test (Pha) (Accu-Chek 1 Each Strip) 1 each FS [facility] Last Admin: 01/22/21 21:19 Dose: 1 each Documented by: Diphenhydramine HCl (Diphenhydramine 50 Mg/Ml Vial) 25 mg IV Q4-6HP PRN PRN Reason: Nausea Docusate Sodium (Docusate Sodium 100 Mg Capsule) 100 mg PO BID [facility] Last Admin: 01/22/21 21:14 Dose: 100 mg Documented by: Enoxaparin Sodium (Enoxaparin 40 Mg/0.4 Ml Syringe) 40 mg SQ DAILY [facility] Last Admin: 01/22/21 10:06 Dose: 40 mg Documented by: Glucose (Dextrose 31 Gm Oral.Susp) 15 gm PO PRN PRN PRN Reason: Hypoglycemia Hydromorphone HCl (Hydromorphone 1 Mg/Ml Syringe) 0.5 - 2 mg IV Q2HP PRN; Protocol PRN Reason: Per Pain Protocol Last Admin: 01/21/21 07:44 Dose: 0.5 mg Documented by: Acetaminophen (hCarityirmev) 1,000 mg in 100 mls @ 200 mls/hr IV Q8 [facility]; Protocol Last Infusion: 01/23/21 06:23 Dose: Infused Documented by: Insulin Human Lispro (Insulin Lispro 1 Unit/0.01 Ml Unit) 0 unit SQ [facility]; Protocol Last Admin: 01/22/21 21:19 Dose: Not Given Documented by: Magnesium Hydroxide (Magnesium Hydroxide 30 Ml Oral.Susp) 30 ml PO BIDP PRN PRN Reason: Constipation Meclizine HCl (Meclizine 25 Mg Tablet) 25 mg PO TIDP PRN PRN Reason: Vertigo Methocarbamol (Methocarbamol 500 Mg Tablet) 500 mg PO TIDP PRN PRN Reason: Muscle Spasm Metoclopramide HCl (Metoclopramide 10 Mg/2 Ml Vial) 10 mg IV Q6HP PRN PRN Reason: Nausea And Vomiting Last Admin: 01/22/21 10:07 Dose: 10 mg Documented by: Ondansetron HCl (Ondansetron 4 Mg/2 Ml Vial) 4 mg IV Q4HP PRN; Protocol PRN Reason: Nausea And Vomiting Last Admin: 01/22/21 03:00 Dose: 4 mg Documented by: Oxycodone HCl (Oxycodone Hcl 5 Mg Tablet) 0 mg PO Q4HP PRN; Protocol PRN Reason: Per Pain Protocol Pantoprazole Sodium (Pantoprazole 40 Mg Packet) 40 mg PO BIDAC [facility] Last Admin: 01/22/21 17:11 Dose: 40 mg Documented by: Dulaglutide [ Urielulicity] 0.75 Mg/0 .5 Ml Pen Injector 1 dose SUB-Q Tu@0900 [facility] Last Admin: 01/19/21 11:07 Dose: Not Given Documented by: Polyethylene Glycol (Polyethylene Glycol 3350 17 Gm Packet) 17 gm PO DAILYP PRN PRN Reason: Constipation Promethazine HCl (Promethazine 25 Mg/Ml Vial) 12.5 mg IV Q6HP PRN PRN Reason: Nausea And Vomiting Last Admin: 01/21/21 21:59 Dose: 12.5 mg Documented by: Scopolamine (Scopolamine 1 Patch Patch) 1 patch TOPICAL Q72H [facility] Last Admin: 01/22/21 13:42 Dose: Not Given Documented by: Senna (Sennosides 1 Tablet) 2 tab PO HS [facility] Last Admin: 01/22/21 21:14 Dose: 2 tab Documented by: Sodium Biphosphate/Sodium Phosphate (Fleets Adult Enema) 1 dose DE Q3-4DAYS PRN PRN Reason: Constipation Sodium Chloride (0.9 % Sodium Chloride 10 Ml Syringe) 10 ml IV Q8 [facility] Last Admin: 01/23/21 05:46 Dose: Not Given Documented by: Sucralfate (Sucralfate 1 Gm/10 Ml Oral.Susp) 1 gm PO ACHS [facility] Stop: 01/23/21 17:01 Last Admin: 01/22/21 21:14 Dose: 1 gm Documented by: Temazepam (Temazepam 15 Mg Capsule) 15 mg PO HSP PRN PRN Reason: Insomnia Throat Lozenges (Benzocaine/Menthol 1 Lozenge) 1 lozenge PO PRN PRN PRN Reason: Sore Throat Last Admin: 01/20/21 20:36 Dose: 1 lozenge Documented by: A/P Narrative A/P Narrative: A: *Nausea(acute on chronic)/Vomiting/mild epigastric discomfort: likely 2/2 severe GERD with possible gastritis -pt states she does get dizzy and home on occasion -AXR unremarkable -improving *GERD/Pyrosis: possibly some gastritis/esophagitis *Multiple right side Fxs from Fall down stairs: s/p ORIF (01/18 & 01/20) *Generalized weakness/FTT/Debility: from multiple fx's -anemia contributing to weakness *Acute blood loss anemia: 2/2 Fall/Fx's/surgery -FOBT negative -s/p 1PRBC (01/23) *DM: *Constipation: resolved P: -prbc transfusion -ppi bid for now but can go to once daily upon d/c -carafate today then prn -SSI -bowel regimen, enema prn -pt/ot, encourage movement -CM for placement needs -ppx: lovenox per ortho Time Spent With Patient Time: Total time spent is greater than 50% in coordination of care (as documented) at patient's floor/unit and/or counseling patient: QUALITY VTE Deep Vein Thrombosis/Pulmonary Embolism Present on Admission: No
[2021-01-23] MEDS: INSULIN LISPRO 1 UNIT/0.01 ML UNIT SQ SCH ×4 (07:30→21:31)
[2021-01-23] MEDS: SUCRALFATE 1 GM/10 ML ORAL.SUSP PO SCH ×3 (07:39→17:18)
[2021-01-23] MEDS: METHOCARBAMOL 500 MG TABLET PO PRN ×2 (07:39→18:45)
[2021-01-23] MEDS: PANTOPRAZOLE 40 MG PACKET PO SCH ×2 (07:39→17:18)
[2021-01-23] MEDS: DOCUSATE SODIUM 100 MG CAPSULE PO SCH ×2 (07:39→21:27)
[2021-01-23] MEDS: MECLIZINE 25 MG TABLET PO PRN (07:39)
[2021-01-23] MEDS: ENOXAPARIN 40 MG/0.4 ML SYRINGE SQ SCH (07:40)
[2021-01-23] MEDS: MECLIZINE 25 MG TABLET PO SCH ×3 (07:42→21:27)
[2021-01-23 07:54] LABS: Hematocrit 25.9 % (34.1-44.9); Hemoglobin 7.8 g/dL (11.2-15.7)
[2021-01-23] MEDS ORDERED: DOCUSATE SODIUM 100 MG CAPSULE PO SCH (09:00)
[2021-01-23] MEDS ORDERED: FUROSEMIDE 40 MG/4 ML VIAL IV ONE (09:03)
[2021-01-23] MEDS ORDERED: POLYETHYLENE GLYCOL 3350 17 GM PACKET PO ONE (09:09)
[2021-01-23] MEDS ORDERED: 0.9 % SODIUM CHLORIDE 250 ML IV SCH (09:15)
--- NOTE | 2021-01-23 09:17 | Orthopedic Progress Note ---
SUBJECTIVE Subjective Patient information: Note initiated : 01/23/21 at 9:11 am Service Date, if different from initiated Date: [] Patient: Anabel Marmolejo 70 y/o F admitted on 01/15/21 for Fall. Chief Complaint: [Had BM yesterday, nausea improved and tolerated some oral intake. Per report, sat on edge of bed yesterday.] Constitutional Vitals: Vital Signs Temp Pulse Resp BP Pulse Ox 97.4 F 82 18 132/78 94 01/23/21 07:40 01/23/21 07:40 01/23/21 07:40 01/23/21 07:40 01/23/21 07:40 Period Temp Pulse Resp BP Sys/Osorio Pulse Ox Last 24 Hr 97.1 F-98.3 F 79-89 15-18 106-132/63-78 91-96 Intake and Output 01/22/21 01/23/21 01/23/21 21:59 05:59 13:59 Intake Total 200 120 100 Output Total 550 300 Balance -350 -180 100 Weight 159 lb 14.4 oz Intake & Output: Intake & Output 01/22/21 01/23/21 01/23/21 21:59 05:59 13:59 Intake Total 200 120 100 Output Total 550 300 Balance -350 -180 100 Weight 159 lb 14.4 oz Intake: IV 200 100 Oral 120 Output: Urine Catheter Amount 550 300 Other: Urine Appearance Clear Urine Color Dark Yellow Dark Yellow Urine Odor Normal Additional findings Additional findings: General: alert, oriented, appropriate Right wrist: splint in place, fingers warm well perfused Right hip/Knee: dressing clean dry and intact without strikethrough. Foot warm well perfused. OBJ DATA Labs CBC & Chem 7: 01/23/21 05:25 01/22/21 05:35 Labs: Abnormal Lab Results 01/23/21 01/22/21 01/22/21 05:25 13:50 05:35 Hgb 7.8 L Hct 25.9 L Carbon Dioxide 19 L Calcium 7.4 L Direct Bilirubin 0.4 H Total Protein 5.1 L Albumin 2.7 L Triglycerides 177 H Urine Glucose (UA) 50 A Urine Ketones 80 A Urine RBC 12 H 01/22/21 01/21/21 05:35 05:22 Hgb 7.9 L 7.9 L Hct 25.1 L 24.8 L Carbon Dioxide Calcium Direct Bilirubin Total Protein Albumin Triglycerides Urine Glucose (UA) Urine Ketones Urine RBC Meds: Medications Bisacodyl (Bisacodyl 10 Mg Supp.Rect) 10 mg MI Q2-3DAYS PRN PRN Reason: Constipation Dextrose (Dextrose 50% 50 Ml Vial) 0 ml IV UD PRN PRN Reason: Hypoglycemia Diagnostic Test (Pha) (Accu-Chek 1 Each Strip) 1 each FS [facility] Last Admin: 01/23/21 07:29 Dose: 1 each Documented by: Diphenhydramine HCl (Diphenhydramine 50 Mg/Ml Vial) 25 mg IV Q4-6HP PRN PRN Reason: Nausea Docusate Sodium (Docusate Sodium 100 Mg Capsule) 100 mg PO BID [facility] Last Admin: 01/23/21 07:39 Dose: 100 mg Documented by: Enoxaparin Sodium (Enoxaparin 40 Mg/0.4 Ml Syringe) 40 mg SQ DAILY [facility] Last Admin: 01/23/21 07:40 Dose: 40 mg Documented by: Furosemide (Furosemide 40 Mg/4 Ml Vial) 40 mg IV ONCE ONE Stop: 01/23/21 09:04 Glucose (Dextrose 31 Gm Oral.Susp) 15 gm PO PRN PRN PRN Reason: Hypoglycemia Hydromorphone HCl (Hydromorphone 1 Mg/Ml Syringe) 0.5 - 2 mg IV Q2HP PRN; Protocol PRN Reason: Per Pain Protocol Last Admin: 01/21/21 07:44 Dose: 0.5 mg Documented by: Acetaminophen (Ofirmev) 1,000 mg in 100 mls @ 200 mls/hr IV Q8 [facility]; Protocol Last Infusion: 01/23/21 06:23 Dose: Infused Documented by: Sodium Chloride (Sodium Chloride 0.9%) 250 mls @ 20 mls/hr IV .[id number] [facility] Stop: 01/23/21 21:44 Insulin Human Lispro (Insulin Lispro 1 Unit/0.01 Ml Unit) 0 unit SQ [facility]; Protocol Last Admin: 01/23/21 07:30 Dose: Not Given Documented by: Magnesium Hydroxide (Magnesium Hydroxide 30 Ml Oral.Susp) 30 ml PO BIDP PRN PRN Reason: Constipation Meclizine HCl (Meclizine 25 Mg Tablet) 25 mg PO TIDP PRN PRN Reason: Vertigo Meclizine HCl (Meclizine 25 Mg Tablet) 25 mg PO TID [facility] Stop: 01/23/21 21:01 Last Admin: 01/23/21 07:42 Dose: 25 mg Documented by: Methocarbamol (Methocarbamol 500 Mg Tablet) 500 mg PO TIDP PRN PRN Reason: Muscle Spasm Last Admin: 01/23/21 07:39 Dose: 500 mg Documented by: Metoclopramide HCl (Metoclopramide 10 Mg/2 Ml Vial) 10 mg IV Q6HP PRN PRN Reason: Nausea And Vomiting Last Admin: 01/22/21 10:07 Dose: 10 mg Documented by: Ondansetron HCl (Ondansetron 4 Mg/2 Ml Vial) 4 mg IV Q4HP PRN; Protocol PRN Reason: Nausea And Vomiting Last Admin: 01/22/21 03:00 Dose: 4 mg Documented by: Oxycodone HCl (Oxycodone Hcl 5 Mg Tablet) 0 mg PO Q4HP PRN; Protocol PRN Reason: Per Pain Protocol Pantoprazole Sodium (Pantoprazole 40 Mg Packet) 40 mg PO BIDAC [facility] Last Admin: 01/23/21 07:39 Dose: 40 mg Documented by: Dulaglutide [ Trulicity] 0.75 Mg/0 .5 Ml Pen Injector 1 dose SUB-Q Tu@0900 [facility] Last Admin: 01/19/21 11:07 Dose: Not Given Documented by: Polyethylene Glycol (Polyethylene Glycol 3350 17 Gm Packet) 17 gm PO DAILYP PRN PRN Reason: Constipation Polyethylene Glycol (Polyethylene Glycol 3350 17 Gm Packet) 17 gm PO ONCE ONE Stop: 01/23/21 09:10 Promethazine HCl (Promethazine 25 Mg/Ml Vial) 12.5 mg IV Q6HP PRN PRN Reason: Nausea And Vomiting Last Admin: 01/21/21 21:59 Dose: 12.5 mg Documented by: Scopolamine (Scopolamine 1 Patch Patch) 1 patch TOPICAL Q72H [facility] Last Admin: 01/22/21 13:42 Dose: Not Given Documented by: Senna (Sennosides 1 Tablet) 2 tab PO HS [facility] Last Admin: 01/22/21 21:14 Dose: 2 tab Documented by: Sodium Biphosphate/Sodium Phosphate (Fleets Adult Enema) 1 dose MI Q3-4DAYS PRN PRN Reason: Constipation Sodium Chloride (0.9 % Sodium Chloride 10 Ml Syringe) 10 ml IV Q8 [facility] Last Admin: 01/23/21 05:46 Dose: Not Given Documented by: Sucralfate (Sucralfate 1 Gm/10 Ml Oral.Susp) 1 gm PO ACHS [facility] Stop: 01/23/21 17:01 Last Admin: 01/23/21 07:39 Dose: 1 gm Documented by: Sucralfate (Sucralfate 1 Gm/10 Ml Oral.Susp) 1 gm PO ACHS PRN PRN Reason: dyspepsia/pyrosis Temazepam (Temazepam 15 Mg Capsule) 15 mg PO HSP PRN PRN Reason: Insomnia Throat Lozenges (Benzocaine/Menthol 1 Lozenge) 1 lozenge PO PRN PRN PRN Reason: Sore Throat Last Admin: 01/20/21 20:36 Dose: 1 lozenge Documented by: A/P Assessment and plan (1) Tibial plateau fracture, left: Status: Acute Comment: 71 year old female now post op ORIF right comminuted distal radius facture and peritrochanteric right femur, as well as postop day #3 following ORIF of a lateral tibial plateau fracture. --Non weight bearing to right wrist but can use a forearm walker for weight bearing --Non weight right lower extremity given tibial plateau fracture --------PT/OT - ROM 0-90 degrees for the knee, heel slides, quad sets, straight leg raises all ok out of the brace. Brace when attempting to ambulate/transfer --------Will start CPM today for her knee/hip motion as patient is not partaking in much rehab at this point. --Up to chair TID with meals --Nausea improving, had BM with additional recommendation/orders by Hospitalist. --H/H is stable to patient is very fatigue- transfuse today which Hospitalist does recommend as well. Hopefully this along with being able tolerate oral intake will help with her overall energy and ability to work with therapy --Pressure ulcers (right heal and sacrum)- frequent turns, wound nurse consulted as well --Plan to d/c fuller today after blood transfusion completed --Prophy: lovenox, IS, foot pumps, mobilize as possible --Dispo: pending but needs SNF, will be here over the weekend. (2) Distal radius fracture, right: Status: Acute (3) Closed subtrochanteric fracture of femur: Status: Acute Time Spent With Patient Time: Total time spent is greater than 50% in coordination of care (as documented) at patient's floor/unit and/or counseling patient:
[2021-01-23] MEDS: SENNOSIDES 1 TABLET PO SCH (21:27)
[2021-01-24] MEDS: 0.9 % SODIUM CHLORIDE 10 ML SYRINGE IV SCH ×3 (06:05→21:22)
[2021-01-24] MEDS: ACETAMINOPHEN 1,000 MG/100 ML BAG IV SCH ×3 (06:05→21:22)
[2021-01-24] MEDS: INSULIN LISPRO 1 UNIT/0.01 ML UNIT SQ SCH ×4 (06:42→21:21)
--- NOTE | 2021-01-24 07:03 | Orthopedic Progress Note ---
SUBJECTIVE Subjective Patient information: Note initiated : 01/24/21 at 6:58 am Service Date, if different from initiated Date: [] Patient: Anabel Marmolejo 70 y/o F admitted on 01/15/21 for Fall. Chief Complaint: [Doing ok, pain controlled. Doesn't like to move secondary to increased pain with movement. Has been using beside commode, nauseau is controlled at this point, tolerating an oral diet, fuller was d/c yesterday.] Constitutional Vitals: Vital Signs Temp Pulse Resp BP Pulse Ox 97.9 F 89 18 106/61 94 01/24/21 04:00 01/24/21 05:59 01/24/21 05:59 01/24/21 04:00 01/24/21 05:59 Period Temp Pulse Resp BP Sys/Osorio Pulse Ox Last 24 Hr 97.3 F-98.1 F 78-89 14-18 97-132/61-78 92-96 Intake and Output 01/23/21 01/24/21 01/24/21 21:59 05:59 13:59 Intake Total 775 340 350 Output Total 1450 450 Balance -675 -110 350 Weight 157 lb 4 oz Intake & Output: Intake & Output 01/23/21 01/24/21 01/24/21 21:59 05:59 13:59 Intake Total 775 340 350 Output Total 1450 450 Balance -675 -110 350 Weight 157 lb 4 oz Intake: IV 100 100 350 Sodium Chloride 0.9% 250 ml @ 250 20 mls/hr IV .[id number] [facility] Rx#: [id number] Oral 350 240 Blood Product 325 Output: Void Amount 1450 450 Other: Urine Appearance Clear Clear Urine Color Bright Yellow Dark Iris Urine Odor Normal Additional findings Additional findings: General: alert and oriented Right wrist: splint in place- clean dry and intact. Fingers warm well perfused Right hip/knee: dressing are clean/dry and intact without strikethrough. Has edema in the foot moreso than the knee/leg region. foot warm well perfused, sensation to light touch grossly intact. OBJ DATA Labs CBC & Chem 7: 01/23/21 05:25 01/22/21 05:35 Labs: Abnormal Lab Results 01/23/21 01/22/21 01/22/21 05:25 13:50 05:35 Hgb 7.8 L Hct 25.9 L Carbon Dioxide 19 L Calcium 7.4 L Direct Bilirubin 0.4 H Total Protein 5.1 L Albumin 2.7 L Triglycerides 177 H Urine Glucose (UA) 50 A Urine Ketones 80 A Urine RBC 12 H 01/22/21 05:35 Hgb 7.9 L Hct 25.1 L Carbon Dioxide Calcium Direct Bilirubin Total Protein Albumin Triglycerides Urine Glucose (UA) Urine Ketones Urine RBC Meds: Medications Bisacodyl (Bisacodyl 10 Mg Supp.Rect) 10 mg CO Q2-3DAYS PRN PRN Reason: Constipation Dextrose (Dextrose 50% 50 Ml Vial) 0 ml IV UD PRN PRN Reason: Hypoglycemia Diagnostic Test (Pha) (Accu-Chek 1 Each Strip) 1 each FS [facility] Last Admin: 01/24/21 06:42 Dose: 1 each Documented by: Diphenhydramine HCl (Diphenhydramine 50 Mg/Ml Vial) 25 mg IV Q4-6HP PRN PRN Reason: Nausea Docusate Sodium (Docusate Sodium 100 Mg Capsule) 100 mg PO BID [facility] Last Admin: 01/23/21 21:27 Dose: 100 mg Documented by: Enoxaparin Sodium (Enoxaparin 40 Mg/0.4 Ml Syringe) 40 mg SQ DAILY [facility] Last Admin: 01/23/21 07:40 Dose: 40 mg Documented by: Glucose (Dextrose 31 Gm Oral.Susp) 15 gm PO PRN PRN PRN Reason: Hypoglycemia Hydromorphone HCl (Hydromorphone 1 Mg/Ml Syringe) 0.5 - 2 mg IV Q2HP PRN; Protocol PRN Reason: Per Pain Protocol Last Admin: 01/21/21 07:44 Dose: 0.5 mg Documented by: Acetaminophen (Ofirmev) 1,000 mg in 100 mls @ 200 mls/hr IV Q8 [facility]; Protocol Last Infusion: 01/24/21 06:42 Dose: Infused Documented by: Insulin Human Lispro (Insulin Lispro 1 Unit/0.01 Ml Unit) 0 unit SQ [facility]; Protocol Last Admin: 01/24/21 06:42 Dose: Not Given Documented by: Magnesium Hydroxide (Magnesium Hydroxide 30 Ml Oral.Susp) 30 ml PO BIDP PRN PRN Reason: Constipation Meclizine HCl (Meclizine 25 Mg Tablet) 25 mg PO TIDP PRN PRN Reason: Vertigo Methocarbamol (Methocarbamol 500 Mg Tablet) 500 mg PO TIDP PRN PRN Reason: Muscle Spasm Last Admin: 01/23/21 18:45 Dose: 500 mg Documented by: Metoclopramide HCl (Metoclopramide 10 Mg/2 Ml Vial) 10 mg IV Q6HP PRN PRN Reason: Nausea And Vomiting Last Admin: 01/22/21 10:07 Dose: 10 mg Documented by: Ondansetron HCl (Ondansetron 4 Mg/2 Ml Vial) 4 mg IV Q4HP PRN; Protocol PRN Reason: Nausea And Vomiting Last Admin: 01/22/21 03:00 Dose: 4 mg Documented by: Oxycodone HCl (Oxycodone Hcl 5 Mg Tablet) 0 mg PO Q4HP PRN; Protocol PRN Reason: Per Pain Protocol Pantoprazole Sodium (Pantoprazole 40 Mg Packet) 40 mg PO BIDAC [facility] Last Admin: 01/23/21 17:18 Dose: 40 mg Documented by: Dulaglutide [ Trulicity] 0.75 Mg/0 .5 Ml Pen Injector 1 dose SUB-Q Tu@0900 [facility] Last Admin: 01/19/21 11:07 Dose: Not Given Documented by: Polyethylene Glycol (Polyethylene Glycol 3350 17 Gm Packet) 17 gm PO DAILYP PRN PRN Reason: Constipation Promethazine HCl (Promethazine 25 Mg/Ml Vial) 12.5 mg IV Q6HP PRN PRN Reason: Nausea And Vomiting Last Admin: 01/21/21 21:59 Dose: 12.5 mg Documented by: Scopolamine (Scopolamine 1 Patch Patch) 1 patch TOPICAL Q72H [facility] Last Admin: 01/22/21 13:42 Dose: Not Given Documented by: Senna (Sennosides 1 Tablet) 2 tab PO HS [facility] Last Admin: 01/23/21 21:27 Dose: 2 tab Documented by: Sodium Biphosphate/Sodium Phosphate (Fleets Adult Enema) 1 dose CO Q3-4DAYS PRN PRN Reason: Constipation Sodium Chloride (0.9 % Sodium Chloride 10 Ml Syringe) 10 ml IV Q8 [facility] Last Admin: 01/24/21 06:05 Dose: 10 ml Documented by: Sucralfate (Sucralfate 1 Gm/10 Ml Oral.Susp) 1 gm PO ACHS PRN PRN Reason: dyspepsia/pyrosis Temazepam (Temazepam 15 Mg Capsule) 15 mg PO HSP PRN PRN Reason: Insomnia Throat Lozenges (Benzocaine/Menthol 1 Lozenge) 1 lozenge PO PRN PRN PRN Reason: Sore Throat Last Admin: 01/20/21 20:36 Dose: 1 lozenge Documented by: A/P Assessment and plan (1) Tibial plateau fracture, left: Status: Acute Comment: 71 year old female now post op ORIF right comminuted distal radius facture and peritrochanteric right femur, as well as postop day #4 following ORIF of a lateral tibial plateau fracture. --Non weight bearing to right wrist but can use a forearm walker for weight bearing --Non weight right lower extremity given tibial plateau fracture -----Has been able to pivot on left leg for transfers to commode --------PT/OT - ROM 0-90 degrees for the knee, heel slides, quad sets, straight leg raises all ok out of the brace. Brace when attempting to ambulate/transfer --------Will start CPM today for her knee/hip motion as patient is not partaking in much rehab at this point. tolerating the CPM but painful getting into the machine --Colt wrap removed from knee and will apply GERARD hose today to help with the swelling in the foot. --Up to chair TID with meals --Nausea controlled now. --H/H- transfused 1 unit yesterday --Pressure ulcers (right heal and sacrum)- frequent turns, wound nurse consulted as well --Prophy: lovenox, IS, foot pumps, mobilize as possible --Dispo: SNF once available, will be here over the weekend. (2) Distal radius fracture, right: Status: Acute (3) Closed subtrochanteric fracture of femur: Status: Acute Time Spent With Patient Time: Total time spent is greater than 50% in coordination of care (as denilson pozo) at patient's floor/unit and/or counseling patient:
--- NOTE | 2021-01-24 07:38 | Internal Med Progress Note ---
SUBJECTIVE Subjective Patient information: Note initiated : 01/24/21 at 7:34 am Service Date, if different from initiated Date: [] Patient: Anabel Marmolejo 70 y/o F admitted on 01/15/21 for Fall. Chief Complaint: [] Interval history: Patient admitted on the after fall down her stairs resulting in multiple fractures. On 01/18 she had ORIF of the distal radius and the right hip. On 01/20 she had ORIF of the right tibial plateau. She has had some postop anemia with hemoglobin 7.9 today was 7.9 yesterday. She is had nausea vomiting heartburn. Also generalized weakness and not getting out of bed. For these reasons hospitalist was consulted. She has been getting IV fluid. BUN is mildly elevated from a few days ago with a normal creatinine. Speak with patient she says she does have chronic nausea and pyrosis but that has been much worse here. Is aggravated by food medications and movement. She denies diarrhea. She does complain of some epigastric achiness. Patient states she has a poor appetite because of nausea. performed FUENTES without gross blood, hard stool noted in rectal vault. 01/23 Feeling better today. No nausea or vomiting. Tolerating diet. Encouraged her to work with PT today. had good BM yesterday. 01/24 No overnight event or new complaints. Nausea much improved. Tolerating food. Continue to encourage work with PT. Review of Systems: denies headache/fever/chills/nausea/vomiting/chest or abdominal monisha n/cough/dyspnea/diarrhea. Otherwise see above. Constitutional Vitals: Vital Signs Temp Pulse Resp BP Pulse Ox 98.9 F 85 16 131/74 96 01/24/21 07:29 01/24/21 07:29 01/24/21 07:29 01/24/21 07:29 01/24/21 07:29 Period Temp Pulse Resp BP Sys/Osorio Pulse Ox Last 24 Hr 97.3 F-98.9 F 78-89 14-18 97-132/61-78 92-96 Intake and Output 01/23/21 01/24/21 01/24/21 21:59 05:59 13:59 Intake Total 775 340 350 Output Total 1450 450 Balance -675 -110 350 Weight 71.327 kg Intake & Output: Intake & Output 01/23/21 01/24/21 01/24/21 21:59 05:59 13:59 Intake Total 775 340 350 Output Total 1450 450 Balance -675 -110 350 Weight 71.327 kg Intake: IV 100 100 350 Sodium Chloride 0.9% 250 ml @ 250 20 mls/hr IV .[id number] [facility] Rx#: [id number] Oral 350 240 Blood Product 325 Output: Void Amount 1450 450 Other: Urine Appearance Clear Clear Urine Color Bright Yellow Dark Iris Urine Odor Normal Exam: General: Alert, Awake, No acute Distress Eyes/N/T: EOMI, Head/Neck: neck supple, CV: RRR, No murmurs, Pulm: Clear b/l, no wheezing/rhonchi/rales Abd: soft, mild epigastric TTP, +BS x4 Ext: no clubbing/cyanosis/edema Neuro: Alert, no focal deficits, moves all extremities, Skin: warm/dry OBJ DATA Labs CBC & Chem 7: 01/24/21 08:25 01/22/21 05:35 Labs: Abnormal Lab Results 01/23/21 01/22/21 01/22/21 05:25 13:50 05:35 Hgb 7.8 L Hct 25.9 L Carbon Dioxide 19 L Calcium 7.4 L Direct Bilirubin 0.4 H Total Protein 5.1 L Albumin 2.7 L Triglycerides 177 H Urine Glucose (UA) 50 A Urine Ketones 80 A Urine RBC 12 H 01/22/21 05:35 Hgb 7.9 L Hct 25.1 L Carbon Dioxide Calcium Direct Bilirubin Total Protein Albumin Triglycerides Urine Glucose (UA) Urine Ketones Urine RBC Meds: Medications Bisacodyl (Bisacodyl 10 Mg Supp.Rect) 10 mg SD Q2-3DAYS PRN PRN Reason: Constipation Dextrose (Dextrose 50% 50 Ml Vial) 0 ml IV UD PRN PRN Reason: Hypoglycemia Diagnostic Test (Pha) (Accu-Chek 1 Each Strip) 1 each FS ACHS [facility] Last Admin: 01/24/21 06:42 Dose: 1 each Documented by: Diphenhydramine HCl (Diphenhydramine 50 Mg/Ml Vial) 25 mg IV Q4-6HP PRN PRN Reason: Nausea Docusate Sodium (Docusate Sodium 100 Mg Capsule) 100 mg PO BID [facility] Last Admin: 01/23/21 21:27 Dose: 100 mg Documented by: Enoxaparin Sodium (Enoxaparin 40 Mg/0.4 Ml Syringe) 40 mg SQ DAILY [facility] Last Admin: 01/23/21 07:40 Dose: 40 mg Documented by: Glucose (Dextrose 31 Gm Oral.Susp) 15 gm PO PRN PRN PRN Reason: Hypoglycemia Hydromorphone HCl (Hydromorphone 1 Mg/Ml Syringe) 0.5 - 2 mg IV Q2HP PRN; Protocol PRN Reason: Per Pain Protocol Last Admin: 01/21/21 07:44 Dose: 0.5 mg Documented by: Acetaminophen (Ofirmev) 1,000 mg in 100 mls @ 200 mls/hr IV Q8 [facility]; Protocol Last Infusion: 01/24/21 06:42 Dose: Infused Documented by: Insulin Human Lispro (Insulin Lispro 1 Unit/0.01 Ml Unit) 0 unit SQ ACHS [facility]; Protocol Last Admin: 01/24/21 06:42 Dose: Not Given Documented by: Magnesium Hydroxide (Magnesium Hydroxide 30 Ml Oral.Susp) 30 ml PO BIDP PRN PRN Reason: Constipation Meclizine HCl (Meclizine 25 Mg Tablet) 25 mg PO TIDP PRN PRN Reason: Vertigo Methocarbamol (Methocarbamol 500 Mg Tablet) 500 mg PO TIDP PRN PRN Reason: Muscle Spasm Last Admin: 01/23/21 18:45 Dose: 500 mg Documented by: Metoclopramide HCl (Metoclopramide 10 Mg/2 Ml Vial) 10 mg IV Q6HP PRN PRN Reason: Nausea And Vomiting Last Admin: 01/22/21 10:07 Dose: 10 mg Documented by: Ondansetron HCl (Ondansetron 4 Mg/2 Ml Vial) 4 mg IV Q4HP PRN; Protocol PRN Reason: Nausea And Vomiting Last Admin: 01/22/21 03:00 Dose: 4 mg Documented by: Oxycodone HCl (Oxycodone Hcl 5 Mg Tablet) 0 mg PO Q4HP PRN; Protocol PRN Reason: Per Pain Protocol Pantoprazole Sodium (Pantoprazole 40 Mg Packet) 40 mg PO BIDAC [facility] Last Admin: 01/23/21 17:18 Dose: 40 mg Documented by: Dulaglutide [ Trulicity] 0.75 Mg/0 .5 Ml Pen Injector 1 dose SUB-Q Tu@0900 [facility] Last Admin: 01/19/21 11:07 Dose: Not Given Documented by: Polyethylene Glycol (Polyethylene Glycol 3350 17 Gm Packet) 17 gm PO DAILYP PRN PRN Reason: Constipation Promethazine HCl (Promethazine 25 Mg/Ml Vial) 12.5 mg IV Q6HP PRN PRN Reason: Nausea And Vomiting Last Admin: 01/21/21 21:59 Dose: 12.5 mg Documented by: Scopolamine (Scopolamine 1 Patch Patch) 1 patch TOPICAL Q72H [facility] Last Admin: 01/22/21 13:42 Dose: Not Given Documented by: Senna (Sennosides 1 Tablet) 2 tab PO HS [facility] Last Admin: 01/23/21 21:27 Dose: 2 tab Documented by: Sodium Biphosphate/Sodium Phosphate (Fleets Adult Enema) 1 dose SD Q3-4DAYS PRN PRN Reason: Constipation Sodium Chloride (0.9 % Sodium Chloride 10 Ml Syringe) 10 ml IV Q8 [facility] Last Admin: 01/24/21 06:05 Dose: 10 ml Documented by: Sucralfate (Sucralfate 1 Gm/10 Ml Oral.Susp) 1 gm PO ACHS PRN PRN Reason: dyspepsia/pyrosis Temazepam (Temazepam 15 Mg Capsule) 15 mg PO HSP PRN PRN Reason: Insomnia Throat Lozenges (Benzocaine/Menthol 1 Lozenge) 1 lozenge PO PRN PRN PRN Reason: Sore Throat Last Admin: 01/20/21 20:36 Dose: 1 lozenge Documented by: A/P Narrative A/P Narrative: A: *Nausea(acute on chronic)/Vomiting/mild epigastric discomfort: likely 2/2 severe GERD with possible gastritis -pt states she does get dizzy and home on occasion -AXR unremarkable -improving *GERD/Pyrosis: possibly some gastritis/esophagitis *Multiple right side Fxs from Fall down stairs: s/p ORIF (01/18 & 01/20) *Generalized weakness/FTT/Debility: from multiple fx's -anemia contributing to weakness *Acute blood loss anemia: 2/2 Fall/Fx's/surgery -FOBT negative -s/p 1PRBC (01/23) *DM: *Constipation: resolved P: -prbc transfusion yesterday -ppi bid for now but can go to once daily upon d/c -carafate again today then prn -SSI -bowel regimen, enema prn -pt/ot, encourage movement -CM for placement needs -ppx: lovenox per ortho *Will sign-off, call if needed Time Spent With Patient Time: Total time spent is greater than 50% in coordination of care (as documented) at patient's floor/unit and/or counseling patient: QUALITY VTE Deep Vein Thrombosis/Pulmonary Embolism Present on Admission: No
[2021-01-24] MEDS ORDERED: SUCRALFATE 1 GM/10 ML ORAL.SUSP PO PRN (08:00)
[2021-01-24] MEDS: ENOXAPARIN 40 MG/0.4 ML SYRINGE SQ SCH (08:24)
[2021-01-24] MEDS: PANTOPRAZOLE 40 MG PACKET PO SCH ×2 (08:24→17:11)
[2021-01-24] MEDS: SUCRALFATE 1 GM/10 ML ORAL.SUSP PO SCH ×4 (08:24→21:15)
[2021-01-24] MEDS: METHOCARBAMOL 500 MG TABLET PO PRN (08:25)
[2021-01-24] MEDS: DOCUSATE SODIUM 100 MG CAPSULE PO SCH ×3 (08:25→21:16)
[2021-01-24] MEDS: METOCLOPRAMIDE 10 MG/2 ML VIAL IV PRN (08:45)
[2021-01-24 09:04] LABS: Hemoglobin 10.1 g/dL (11.2-15.7)
[2021-01-24] MEDS ORDERED: FUROSEMIDE 20 MG/2 ML VIAL IV ONE (09:54)
[2021-01-24] MEDS ORDERED: POTASSIUM CHLORIDE 20 MEQ TABLET PO ONE (09:56)
[2021-01-24] MEDS: MECLIZINE 25 MG TABLET PO PRN (11:39)
[2021-01-24] MEDS: SENNOSIDES 1 TABLET PO SCH (21:16)
--- NOTE | 2021-01-25 05:43 | Orthopedic Progress Note ---
SUBJECTIVE Subjective Patient information: Note initiated : 01/25/21 at 5:39 am Service Date, if different from initiated Date: [] Patient: Anabel Marmolejo 70 y/o F admitted on 01/15/21 for Fall. Chief Complaint: [No new issues. Reports pain is improving. Nausea is doing well and able to tolerate food. No chest pain/shortness of breath.] Constitutional Vitals: Vital Signs Temp Pulse Resp BP Pulse Ox 97.1 F 90 14 129/75 96 01/25/21 04:00 01/25/21 04:00 01/25/21 04:00 01/25/21 04:00 01/25/21 04:00 Period Temp Pulse Resp BP Sys/Osorio Pulse Ox Last 24 Hr 97.1 F-98.9 F 84-90 14-18 95-131/56-79 91-96 Intake and Output 01/24/21 01/24/21 01/25/21 13:59 21:59 05:59 Intake Total 350 220 Output Total 450 450 Balance -100 220 -450 Weight 157 lb 5 oz Patient Weight 01/25/21 05:59 Weight 157 lb 5 oz Intake & Output: Intake & Output 01/24/21 01/24/21 01/25/21 13:59 21:59 05:59 Intake Total 350 220 Output Total 450 450 Balance -100 220 -450 Weight 157 lb 5 oz Intake: IV 350 100 Sodium Chloride 0.9% 250 ml @ 250 20 mls/hr IV .[id number] [facility] Rx#: [id number] Oral 120 Output: Void Amount 450 450 Other: Meal Breakfast Percent of Meal Consumed Refused Urine Appearance Clear Clear Urine Color Bright Yellow Dark Iris Urine Odor Normal Additional findings Additional findings: General: alert and oriented, appropriate -right wrist: splint clean dry intact. fingers warm well perfused, sensation grossly intact throughout hand Right hip/knee: silver dressing in place- dry. minimal swelling throughout leg. foot warm well perfused- in CPM this AM. OBJ DATA Labs CBC & Chem 7: 01/24/21 08:25 01/22/21 05:35 Labs: Abnormal Lab Results 01/24/21 01/23/21 01/22/21 08:25 05:25 13:50 Hgb 10.1 L 7.8 L Hct 31.0 L 25.9 L Carbon Dioxide Calcium Direct Bilirubin Total Protein Albumin Triglycerides Urine Glucose (UA) 50 A Urine Ketones 80 A Urine RBC 12 H 01/22/21 01/22/21 05:35 05:35 Hgb 7.9 L Hct 25.1 L Carbon Dioxide 19 L Calcium 7.4 L Direct Bilirubin 0.4 H Total Protein 5.1 L Albumin 2.7 L Triglycerides 177 H Urine Glucose (UA) Urine Ketones Urine RBC Meds: Medications Bisacodyl (Bisacodyl 10 Mg Supp.Rect) 10 mg FL Q2-3DAYS PRN PRN Reason: Constipation Dextrose (Dextrose 50% 50 Ml Vial) 0 ml IV UD PRN PRN Reason: Hypoglycemia Diagnostic Test (Pha) (Accu-Chek 1 Each Strip) 1 each FS [facility] Last Admin: 01/24/21 21:16 Dose: 1 each Documented by: Diphenhydramine HCl (Diphenhydramine 50 Mg/Ml Vial) 25 mg IV Q4-6HP PRN PRN Reason: Nausea Docusate Sodium (Docusate Sodium 100 Mg Capsule) 100 mg PO BID [facility] Last Admin: 01/24/21 21:16 Dose: 100 mg Documented by: Enoxaparin Sodium (Enoxaparin 40 Mg/0.4 Ml Syringe) 40 mg SQ DAILY [facility] Last Admin: 01/24/21 08:24 Dose: 40 mg Documented by: Glucose (Dextrose 31 Gm Oral.Susp) 15 gm PO PRN PRN PRN Reason: Hypoglycemia Hydromorphone HCl (Hydromorphone 1 Mg/Ml Syringe) 0.5 - 2 mg IV Q2HP PRN; Protocol PRN Reason: Per Pain Protocol Last Admin: 01/21/21 07:44 Dose: 0.5 mg Documented by: Acetaminophen (Ofirmev) 1,000 mg in 100 mls @ 200 mls/hr IV Q8 [facility]; Protocol Last Admin: 01/24/21 21:22 Dose: 200 mls/hr Documented by: Insulin Human Lispro (Insulin Lispro 1 Unit/0.01 Ml Unit) 0 unit SQ [facility]; Protocol Last Admin: 01/24/21 21:21 Dose: Not Given Documented by: Magnesium Hydroxide (Magnesium Hydroxide 30 Ml Oral.Susp) 30 ml PO BIDP PRN PRN Reason: Constipation Meclizine HCl (Meclizine 25 Mg Tablet) 25 mg PO TIDP PRN PRN Reason: Vertigo Last Admin: 01/24/21 11:39 Dose: 25 mg Documented by: Methocarbamol (Methocarbamol 500 Mg Tablet) 500 mg PO TIDP PRN PRN Reason: Muscle Spasm Last Admin: 01/23/21 18:45 Dose: 500 mg Documented by: Metoclopramide HCl (Metoclopramide 10 Mg/2 Ml Vial) 10 mg IV Q6HP PRN PRN Reason: Nausea And Vomiting Last Admin: 01/24/21 08:45 Dose: 10 mg Documented by: Ondansetron HCl (Ondansetron 4 Mg/2 Ml Vial) 4 mg IV Q4HP PRN; Protocol PRN Reason: Nausea And Vomiting Last Admin: 01/22/21 03:00 Dose: 4 mg Documented by: Oxycodone HCl (Oxycodone Hcl 5 Mg Tablet) 0 mg PO Q4HP PRN; Protocol PRN Reason: Per Pain Protocol Pantoprazole Sodium (Pantoprazole 40 Mg Packet) 40 mg PO BIDAC [facility] Last Admin: 01/24/21 17:11 Dose: 40 mg Documented by: Dulaglutide [ Trulicity] 0.75 Mg/0 .5 Ml Pen Injector 1 dose SUB-Q Tu@0900 [facility] Last Admin: 01/19/21 11:07 Dose: Not Given Documented by: Polyethylene Glycol (Polyethylene Glycol 3350 17 Gm Packet) 17 gm PO DAILYP PRN PRN Reason: Constipation Promethazine HCl (Promethazine 25 Mg/Ml Vial) 12.5 mg IV Q6HP PRN PRN Reason: Nausea And Vomiting Last Admin: 01/21/21 21:59 Dose: 12.5 mg Documented by: Scopolamine (Scopolamine 1 Patch Patch) 1 patch TOPICAL Q72H [facility] Last Admin: 01/22/21 13:42 Dose: Not Given Documented by: Senna (Sennosides 1 Tablet) 2 tab PO HS [facility] Last Admin: 01/24/21 21:16 Dose: 2 tab Documented by: Sodium Biphosphate/Sodium Phosphate (Fleets Adult Enema) 1 dose FL Q3-4DAYS PRN PRN Reason: Constipation Sodium Chloride (0.9 % Sodium Chloride 10 Ml Syringe) 10 ml IV Q8 [facility] Last Admin: 01/24/21 21:22 Dose: 10 ml Documented by: Sucralfate (Sucralfate 1 Gm/10 Ml Oral.Susp) 1 gm PO ACHS PRN PRN Reason: dyspepsia/pyrosis Sucralfate (Sucralfate 1 Gm/10 Ml Oral.Susp) 1 gm PO ACHS PAPI Stop: 01/25/21 11:31 Last Admin: 01/24/21 21:15 Dose: 1 gm Documented by: Temazepam (Temazepam 15 Mg Capsule) 15 mg PO HSP PRN PRN Reason: Insomnia Throat Lozenges (Benzocaine/Menthol 1 Lozenge) 1 lozenge PO PRN PRN PRN Reason: Sore Throat Last Admin: 01/20/21 20:36 Dose: 1 lozenge Documented by: A/P Assessment and plan (1) Tibial plateau fracture, left: Status: Acute Comment: 71 year old female now post op day 10 from ORIF right comminuted distal radius facture and peritrochanteric right femur, as well as postop day #5 following ORIF of a lateral tibial plateau fracture. --Non weight bearing to right wrist but can use a forearm walker for weight bearing --Non weight right lower extremity given tibial plateau fracture -----Has been able to pivot on left leg for transfers to [facility], has been working with PT --------PT/OT - ROM 0-90 degrees for the knee, heel slides, quad sets, straight leg raises all ok out of the brace. Brace when attempting to ambulate/transfer --------CPM for her knee/hip motion --GERARD hose in place. --Up to chair TID with meals --Nausea controlled now. --H/H- transfused 1 unit with h/h 03/20 yesterday, vitals stable --Pressure ulcers (right heal and sacrum)- frequent turns, wound nurse consulted as well --Prophy: lovenox, IS, foot pumps, mobilize as possible --Dispo: SNF once available, awaiting bed (2) Distal radius fracture, right: Status: Acute (3) Closed subtrochanteric fracture of femur: Status: Acute Time Spent With Patient Time: Total time spent is greater than 50% in coordination of care (as documented) at patient's floor/unit and/or counseling patient:
[2021-01-25] MEDS: 0.9 % SODIUM CHLORIDE 10 ML SYRINGE IV SCH ×3 (06:01→21:39)
[2021-01-25] MEDS: ACETAMINOPHEN 1,000 MG/100 ML BAG IV SCH ×3 (06:06→21:41)
[2021-01-25] MEDS: SUCRALFATE 1 GM/10 ML ORAL.SUSP PO SCH ×2 (06:48→11:12)
[2021-01-25] MEDS: PANTOPRAZOLE 40 MG PACKET PO SCH ×2 (06:48→17:06)
[2021-01-25] MEDS: INSULIN LISPRO 1 UNIT/0.01 ML UNIT SQ SCH ×4 (06:52→21:46)
[2021-01-25] MEDS: DOCUSATE SODIUM 100 MG CAPSULE PO SCH ×2 (07:01→21:39)
[2021-01-25] MEDS: ENOXAPARIN 40 MG/0.4 ML SYRINGE SQ SCH (07:01)
[2021-01-25] MEDS: SCOPOLAMINE 1 PATCH PATCH TOPICAL SCH ×2 (11:13→11:16)
--- NOTE | 2021-01-25 17:54 | EKG ---
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
[2021-01-25] MEDS: SENNOSIDES 1 TABLET PO SCH (21:39)
[2021-01-26] MEDS: POLYETHYLENE GLYCOL 3350 17 GM PACKET PO PRN ×2 (03:08→08:05)
[2021-01-26] MEDS: ACETAMINOPHEN 1,000 MG/100 ML BAG IV SCH ×2 (06:07→14:34)
[2021-01-26] MEDS: 0.9 % SODIUM CHLORIDE 10 ML SYRINGE IV SCH ×2 (06:07→14:34)
[2021-01-26] MEDS: PANTOPRAZOLE 40 MG PACKET PO SCH (07:32)
[2021-01-26] MEDS: INSULIN LISPRO 1 UNIT/0.01 ML UNIT SQ SCH ×2 (07:38→11:15)
[2021-01-26] MEDS: Dulaglutide [Trulicity] 0.75 mg/0.5 mL Pen Injector SUB-Q SCH (08:05)
[2021-01-26] MEDS: DOCUSATE SODIUM 100 MG CAPSULE PO SCH (08:05)
[2021-01-26] MEDS: ENOXAPARIN 40 MG/0.4 ML SYRINGE SQ SCH (08:05)
--- NOTE | 2021-01-27 12:38 | History and Physical Report ---
DATE OF ADMISSION: 01/15/2021 CHIEF COMPLAINT: A 70-year-old female with a chief complaint of right hip pain and deformity. She also has a right distal radius fracture, displaced and in significant pain. HISTORY OF PRESENT ILLNESS: The patient had a same level fall where she sustained an injury to right distal radius and right hip. She had immediate pain, swelling and deformity, was unable to ambulate, was brought here to the emergency room where she was diagnosed with a displaced distal radius fracture angled at 25 degrees of volar angulation, right intertrochanteric hip fracture with subtrochanteric extension involving the lesser trochanter. PAST MEDICAL HISTORY: She has been quite healthy. She does have high blood pressure and takes lisinopril for this. She is on no blood thinners. She has had no recent heart attacks or strokes or shortness of breath. She did not lose any consciousness on review of systems. ALLERGIES: She lists none. PHYSICAL EXAMINATION: GENERAL: Pleasant elderly female, 70 years old, gives a good history of the events of what happened. CHEST: Lungs are clear to auscultation. CARDIOVASCULAR: Regular rate and rhythm. EXTREMITIES: Her right wrist is volarly angulated approximately 20 or 30 degrees, shortened, and she can move her fingers, but because of pain I did not have her do more than this. She has good capillary refill. Right leg is shortened and externally rotated, but she can move her toes with some pain. Her feet are pink and warm. IMAGING: Her x-rays of the right hip demonstrates AP and lateral of the right hip and femur. This demonstrates a subtroch/intertroch hip fracture, extends 4 cm distal. The lesser trochanter is a separate fragment. A second x-ray of the right distal radius shows volar angulation of 25 degrees, shortening below the ulnar styloid area. This is shortened about 1 cm with dorsal comminution. DIAGNOSES: 1. Right distal radius fracture. 2. Right intertrochanteric hip fracture, displaced, extending into the subtrochanteric area. TREATMENT PLAN: The treatment will be right hip gamma nail with cabling of the lesser trochanter as well as a right distal radius fracture open reduction internal fixation with volar plate and screw. Note that the patient otherwise did not eat today. She states her last time she ate was 8:00 last night. At this point, we will proceed with surgery. She understands the risks and the benefits of the surgery. Some of these risks include heart attacks and strokes, blood loss, failure of the implants and failure of the fracture to heal. She understands we will allow her to be weightbearing as tolerated. NANDO:mary lou Job ID: [id number] Doc ID: [id number] Akshat Casas MD
== END 2021-01-26 15:31 | DRG 481 ==
LOC: ED 11:46 → SSSU 14:26 → SUR 14:26 → MEDSUR 18:34
PROVIDERS: ADMIT Orthopaedic Surgery; ATTEND Orthopaedic Surgery

== ENCOUNTER 2021-12-05 09:59 | Inpatient (IN) ==
[2021-12-05] MEDS ORDERED: PROMETHAZINE 25 MG/ML VIAL IV ONE (10:27)
--- NOTE | 2021-12-05 10:41 | XRay Report ---
INDICATION: Fall TECHNIQUE: AP and crosstable lateral COMPARISON: None FINDINGS:Bones appear demineralized consistent with osteopenia or osteoporosis. Fracture of the left lateral femoral condyle with mild lateral displacement. No significant joint effusion demonstrated on cross table lateral view. Proximal left tibia and fibula are negative IMPRESSION: Left lateral femoral condylar fracture Interpreted and Authenticated by: Carlos Eduardo Chamberlain 12/05/21
--- NOTE | 2021-12-05 10:44 | Emergency Department Note ---
Fall HPI General Chief Complaint: Fall Stated Complaint: Left Knee Pain Time Seen by Provider: 12/05/21 10:12 Source: EMS Mode of arrival: EMS History of Present Illness HPI Narrative: Narrative: 71-year-old female with a history of diabetes who takes Ozempic, this is the only medication she is on she does have a history of GERD, osteoporosis and hyperlipidemia presents the ER to be evaluated for acute onset knee pain. [place] an irregularity in the floor and impacted her left knee and swollen and tender at this time. She has not been able to bear weight on it. She was given fentanyl in route by EMS and she became nauseous with it. She had 8 of Zofran but is still vomiting. She denies fever, chills, body aches, chest pain, chest pressure, shortness of breath or fever. She has no other complaints at this time. Patient did not hit her head or neck or strike anything other than her knee. Related Data Home Medications Medication Instructions Recorded Confirmed semaglutide (Ozempic) See Rx Instructions .Route .COMPLEX 12/05/21 12/05/21 Allergies Allergy/AdvReac Type Severity Reaction Status Date / Time hydrocodone AdvReac Mild Vomiting Verified 12/05/21 10:02 Review of Systems ROS ROS Narrative: Narrative: All systems ED: reviewed and negative except as stated. [facility] Narrative Patient History Narrative: Narrative: Medical/Surgical/Family History All Active Problems (Updated 12/05/21 @ 11:53 by Devante Bey PA-C) Femoral condyle fracture (Acute) Tibial plateau fracture, left (Acute) Distal radius fracture, right (Acute) Closed subtrochanteric fracture of femur (Acute) Back pain, thoracic (Acute) Nicotine addiction (Chronic) Obesity (Chronic) Age-related osteoporosis with current pathol fracture of vertebra (Acute) No pertinent past surgical history (Chronic) Glaucoma (Chronic) Vertigo (Chronic) Hypokalemia (Chronic) GERD (gastroesophageal reflux disease) (Chronic) Osteopenia (Chronic) Knee pain (Chronic) Toe pain (Chronic) Multinodular goiter (Chronic) Diabetes mellitus (Chronic) Hyperlipidemia (Chronic) Amenorrhea (Chronic) Patellar contusion (Chronic) Injury of meniscus of left knee (Chronic) Knee effusion, left (Chronic) Closed compression fracture of thoracic vertebra (Chronic) Medical History Age-related osteoporosis with current pathol fracture of vertebra Amenorrhea Back pain, thoracic Diabetes mellitus GERD (gastroesophageal reflux disease) Glaucoma Hyperlipidemia Hypokalemia Injury of meniscus of left knee Knee effusion, left Knee pain Multinodular goiter Nicotine addiction Obesity Osteopenia Patellar contusion Toe pain Vertigo Surgical History History of arthroscopic knee surgery Family History Father Hypertension Heart disease Alcohol abuse Mother Hypertension Arthritis Social History Smoking Status: Current every day smoker Alcohol Intake Frequency: does not drink Substance Use: does not use Exam Narrative Narrative: Narrative: Gen: No acute distress Eyes: PERRL, no conjunctival injection , and symmetrical lids. Sclerae non icteric HENMT: Normocephalic Atraumatic head, external nose and ears. Moist MM. CVS: +S1/S2, No murmurs or gallops. Radial pulses 2+ and equal bilat. No swelling RESP: Unlabored respiratory effort . Clear to auscultation bilaterally (CTAB). No noted wheezes rales or ronchi. MSK: Left knee is swollen and tender to touch, patient is holding her self in flexion in a position of comfort with a pillow behind her knee. She has DP and PT that are 2+ with cap refill less than 2, tib-fib are unremarkable as well as the foot, femur has no tenderness nor does the hip. Skin: Warm, Dry . No rashes or lesions . Cap refill less than 2. Psych: Awake, Alert, & Oriented (AAO) x3. Appropriate mood and affect . Course Vital Signs Vital signs: Vital Signs Temperature 97.7 F 12/05/21 09:59 Pulse Rate 80 12/05/21 09:59 Respiratory Rate 16 12/05/21 09:59 Blood Pressure 156/83 12/05/21 09:59 Pulse Oximetry (%) 93 12/05/21 09:59 Oxygen Delivery Method 12/05/21 09:59 Temperature 96.4 F L 12/05/21 16:34 Pulse Rate 100 H 12/05/21 18:16 Respiratory Rate 20 12/05/21 16:34 Blood Pressure 129/82 07/17/22 18:16 Pulse Oximetry (%) 97 12/05/21 18:16 Oxygen Delivery Method 12/05/21 18:16 Oxygen Flow Rate (L/min) 0 12/05/21 16:04 [facility] MDM Narrative Medical decision making narrative: Narrative: Patient was still vomiting after 8 mg of Zofran, she will be given 12 and half milligrams of Phenergan and will be reevaluated. A complete knee x-ray was ordered. X-ray: Left lateral femoral condyle fracture Dr. Moon will be consulted Opioids cause nausea and vomiting this patient, she will be given ketamine 20 mg and 100 mL bag run in over 10 minutes. Patient last ate yesterday Dr. Moon: Requests CT with recon and to admit to hospitalist he will likely do the surgery today. He will come over shortly to see the patient Hospitalist: Dr Gomez: Graciously agreed to come down to evaluate the patient. Lab Data Result diagrams: 12/05/21 12:09 12/05/21 12:09 Labs: Lab Results 12/05/21 12/05/21 12/05/21 Range/Units 12:09 12:09 12:09 WBC 10.1 (4.5-11.0) K/mcL RBC 4.01 (3.59-5.38) M/mcL Hgb 11.7 (11.2-15.7) g/dL Hct 37.1 (34.1-44.9) % MCV 92.5 (80.0-100.0) fL MCH 29.2 (26.0-34.0) pg MCHC 31.5 (31.0-36.0) g/dL RDW 13.0 (11.5-14.5) % Plt Count 194 (140-440) K/mcL MPV 9.3 (7.4-10.4) fL Immature Gran % (Auto) 0.4 (0.0-0.5) % Neut % (Auto) 87.4 H (38.0-78.0) % Lymph % (Auto) 8.5 L (15.5-49.0) % [place] % (Auto) 3.2 (1.0-12.0) % Eos % (Auto) 0.2 (0.0-7.0) % Baso % (Auto) 0.3 (0.0-2.0) % Lymph # (Auto) 0.86 L (1.50-4.80) K/mcL [place] # (Auto) 0.32 (0.10-0.90) K/mcL Eos # (Auto) 0.02 (0.00-0.70) K/mcL Baso # (Auto) 0.03 (0.00-0.30) K/mcL Immature Gran # 0.04 (0.00-0.05) K/mcl Absolute Neutrophils 8.83 H (1.80-8.00) K/mcL PT 14.3 (11.9-14.5) sec INR 1.1 (0.9-1.1) Sodium 140 (133-145) mmol/L Potassium 3.8 (3.3-5.1) mmol/L Chloride 106 (96-108) mmol/L Carbon Dioxide 24 (22-30) mmol/L Anion Gap 10.0 (8.0-16.0) BUN 14 (8-23) mg/dL Creatinine 0.6 (0.6-1.1) mg/dL GFR Calculation 92 Glucose 133 H (70-105) mg/dL Calcium 8.3 L (8.6-10.4) mg/dL Total Bilirubin 0.5 (0.1-1.0) mg/dL AST 20 (<32) U/L ALT 15 (<40) U/L Alkaline Phosphatase 112 (39-117) U/L Total Protein 6.4 (5.9-8.4) gm/dL Albumin 3.3 (3.2-5.2) gm/dL Globulin 3.1 (2.2-3.7) gm/dL Albumin/Globulin Ratio 1.1 (1.0-2.3) Discharge Plan Patient/Caregiver Discharge Instructions Pt seen by CERTIFIED PERFORMANCE TECHNOLOGIST/PA only: Yes Clinical Impression: Femoral condyle fracture Patient Disposition: Xfer As Inpt ([facility]) Discharge Date/Time: 12/05/21 12:50 Discharge Comment: Pt to surgery @ 1250
[2021-12-05] MEDS ORDERED: KETAMINE 10 MG/ML ML IV ONE (11:05)
--- NOTE | 2021-12-05 12:16 | Internal Med History&Physical ---
HPI History of Present Illness Patient information: Note initiated : 12/05/21 at 12:13 pm Service Date, if different from initiated Date: [] Patient: Anabel Marmolejo a 71 y/o F admitted on for Left Knee Pain. Chief Complaint: [Fall] Chief complaint: Left knee pain History of present illness: Ms. Michael Fernandez is a 71 year old F past medical history significant for prior intertrochanteric femoral fracture last year from a fall and diabetes mellitus who presents to the hospital after a mechanical fall resulting in severe knee pain and the inability to ambulate. The patient states that she [place] walking with her [place]. She denied any prodromal symptoms. She presented to the hospital for further management and evaluation. On arrival she was hemodynamically stable and afebrile. She was given fentanyl for pain control as well as IV Zofran for nausea. X-ray revealed left lateral femoral condyle fracture. Orthopedic surgery were consulted and plan to take her to the OR today. The hospitalist service was asked admit the patient for comanagement Review of Systems All systems: reviewed and no additional remarkable complaints except as stated Constitutional Constitutional: Present as per HPI EENT Eyes: Present as per HPI; Absent blurry vision Cardiovascular Cardiovascular: Present as per HPI; Absent chest pain, dyspnea, dyspnea on exertion, leg edema or palpatations Respiratory Respiratory: Present as per HPI; Absent cough, dyspnea, dyspnea on exertion, wheezing or stridor Gastrointestinal Gastrointestinal: Present as per HPI; Absent abdominal pain, diarrhea, dysphagia, hematemesis, melena, nausea or vomiting Musculoskeletal Musculoskeletal: Present as per HPI; Absent joint swelling, limited range of motion, muscle cramps, muscle weakness or myalgias Integumentary Integumentary: Present as per HPI; Absent erythema, new lesions, rash or wounds Neurological Neurological: Present as per HPI; Absent abnormal gait, behavioral changes, focal weakness, headache(s), loss of vision, numbness, sensory deficit or syncope Endocrine Endocrine: Absent change in body appearance, fatigue or heat intolerance Hematologic/Lymphatic Hematologic/Lymphatic: Present as per HPI PFSH PFSH All Active Problems (Updated 12/05/21 @ 11:53 by Devante Bey PA-C) Femoral condyle fracture (Acute) Tibial plateau fracture, left (Acute) Distal radius fracture, right (Acute) Closed subtrochanteric fracture of femur (Acute) Back pain, thoracic (Acute) Nicotine addiction (Chronic) Obesity (Chronic) Age-related osteoporosis with current pathol fracture of vertebra (Acute) No pertinent past surgical history (Chronic) Glaucoma (Chronic) Vertigo (Chronic) Hypokalemia (Chronic) GERD (gastroesophageal reflux disease) (Chronic) Osteopenia (Chronic) Knee pain (Chronic) Toe pain (Chronic) Multinodular goiter (Chronic) Diabetes mellitus (Chronic) Hyperlipidemia (Chronic) Amenorrhea (Chronic) Patellar contusion (Chronic) Injury of meniscus of left knee (Chronic) Knee effusion, left (Chronic) Closed compression fracture of thoracic vertebra (Chronic) Medical History Age-related osteoporosis with current pathol fracture of vertebra Amenorrhea Back pain, thoracic Diabetes mellitus GERD (gastroesophageal reflux disease) Glaucoma Hyperlipidemia Hypokalemia Injury of meniscus of left knee Knee effusion, left Knee pain Multinodular goiter Nicotine addiction Obesity Osteopenia Patellar contusion Toe pain Vertigo Surgical History History of arthroscopic knee surgery Family History Father Hypertension Heart disease Alcohol abuse Mother Hypertension Arthritis Social History (Updated 04/27/20 @ 12:31 by Lyla Bonilla) marital status: education level: high school occupational status: employed occupation: [employer] alcohol intake frequency: does not drink substance use type: does not use MEDS/ALLERGIES Home Medications and Allergies Home Medications Medication Instructions Recorded Confirmed Type semaglutide (Ozempic) See Rx Instructions .Route .COMPLEX 12/05/21 12/05/21 History Allergies Allergy/AdvReac Type Severity Reaction Status Date / Time hydrocodone AdvReac Mild Vomiting Verified 12/05/21 10:02 EXAM Constitutional Vitals: Temp Pulse Resp BP Pulse Ox O2 Del Method 97.7 F 86 16 116/67 100 12/05/21 09:59 12/05/21 11:38 12/05/21 09:59 12/05/21 11:31 12/05/21 11:38 12/05/21 09:59 General appearance: average body habitus Head Head exam: Present atraumatic, normal inspection and normocephalic Eye Eye exam: Present EOMI, normal appearance and PERRL; Absent conjunctival injection ENT ENT exam: Present normal exam; Absent mucous membranes dry Neck Neck exam: Present full ROM; Absent lymphadenopathy Respiratory Respiratory exam: Present normal respiratory exam and CTAB; Absent decreased breath sounds, respiratory distress or wheezes Cardiovascular Cardiovascular exam: Present normal rate and rhythm and RRR; Absent JVD GI/Abdominal GI/Abdominal exam: Present normal bowel sounds and soft; Absent diminished bowel sounds, distended, guarding, mass, rebound or tenderness Neurological Exam Neurological exam: Present alert, CN II-XII intact and oriented X3 Psychiatric Psychiatric exam: Present normal affect and normal mood Skin Skin exam: Present intact and warm; Absent erythema, pallor, petechiae or rash DATA Data Completed and Pending Labs: Labs from last 24 hours 12/05/21 12/05/21 12/05/21 12:09 12:09 12:09 WBC Pending RBC Pending Hgb Pending Hct Pending MCV Pending MCH Pending MCHC Pending RDW Pending Plt Count Pending MPV Pending Immature Gran % (Auto) Pending Neut % (Auto) Pending Immature Gran # Pending PT Pending INR Pending Sodium Pending Potassium Pending Chloride Pending Carbon Dioxide Pending Anion Gap Pending BUN Pending Creatinine Pending GFR Calculation Pending Glucose Pending Calcium Pending Total Bilirubin Pending AST Pending ALT Pending Alkaline Phosphatase Pending Total Protein Pending Albumin Pending Globulin Pending Albumin/Globulin Ratio Pending A/P Assessment and plan (1) Femoral condyle fracture: Status: Acute (2) Glaucoma: Status: Chronic (3) Knee pain: Status: Chronic (4) Diabetes mellitus: Status: Chronic (5) Nicotine addiction: Status: Chronic Narrative A/P Narrative: The patient will be taken to the OR today. Postop management per orthopedic surgery. She will need to work with PT/OT to determine disposition. Continue Tylenol, ibuprofen and oxycodone for pain control. Time Spent With Patient Time: Total time spent is greater than 50% in coordination of care (as documented) at patient's floor/unit and/or counseling patient: Total time spent with greater than 50% in coordination of care (as documented) at patient's floor/unit and/or counseling patient:: Greater than 70 minutes
--- NOTE | 2021-12-05 12:20 | Cat Scan Report ---
INDICATION: Please ad Recon for Dr Moon TECHNIQUE: Axial images through the left knee. Sagittal, coronal, 3-D reformatted images COMPARISON: Plain film examination dated 12/05/2021 FINDINGS: There is a fracture of the left lateral femoral condyle. Fracture extends from the articular surface to the lateral supracondylar femur. There is mild diastases at the fracture line and mild foreshortening. Medial femoral condyle is negative. There is no fracture. Proximal tibia and fibula are negative IMPRESSION: Left lateral femoral condylar fracture Interpreted and Authenticated by: Carlos Eduardo Chamberlain 12/05/21
[2021-12-05 12:37] LABS: Basophils # (Auto) 0.03 K/mcL (0.00-0.30); Basophils % (Auto) 0.3 % (0.0-2.0); Eosinophils # (Auto) 0.02 K/mcL (0.00-0.70); Eosinophils % (Auto) 0.2 % (0.0-7.0); Hematocrit 37.1 % (34.1-44.9); Hemoglobin 11.7 g/dL (11.2-15.7); Lymphocytes # (Auto) 0.86 K/mcL (1.50-4.80); Lymphocytes % (Auto) 8.5 % (15.5-49.0); Mean Cell Volume 92.5 fL (80.0-100.0); Mean Corpuscular HGB Conc 31.5 g/dL (31.0-36.0); Mean Platelet Volume 9.3 fL (7.4-10.4); Monocytes # (Auto) 0.32 K/mcL (0.10-0.90); Monocytes % (Auto) 3.2 % (1.0-12.0); Neutrophils % (Auto) 87.4 % (38.0-78.0); Platelet Count 194 K/mcL (140-440); RBC 4.01 M/mcL (3.59-5.38); WBC 10.1 K/mcL (4.5-11.0)
--- NOTE | 2021-12-05 12:43 | XRay Report ---
INDICATION: pre surgery TECHNIQUE: AP portable upright chest x-ray COMPARISON: Previous chest x-ray dated 01/15/2021 FINDINGS: Lungs:Lungs are negative. No focal pulmonary parenchymal infiltrate or mass Heart, vascular:No significant cardiomegaly. Pulmonary vascularity is normal. No pulmonary edema or pulmonary congestion Mediastinum, loraine:No mediastinal widening. No hilar mass Pleura:No pleural fluid. No pleural-based mass or calcification Skeletal:Negative. IMPRESSION: 1. Negative AP chest x-ray 2. No significant interval change Interpreted and Authenticated by: Carlos Eduardo Chamberlain 12/05/21
[2021-12-05 12:49] LABS: INR 1.1 (0.9-1.1); Prothrombin Time 14.3 sec (11.9-14.5)
[2021-12-05 12:54] LABS: ALT/SGPT 15 U/L (<40); AST/SGOT 20 U/L (<32); Albumin 3.3 gm/dL (3.2-5.2); Albumin/Globulin Ratio 1.1 (1.0-2.3); Alkaline Phosphatase 112 U/L (39-117); Bilirubin,Total 0.5 mg/dL (0.1-1.0); Blood Urea Nitrogen 14 mg/dL (8-23); Calcium 8.3 mg/dL (8.6-10.4); Carbon Dioxide 24 mmol/L (22-30); Chloride 106 mmol/L (96-108); Globulin 3.1 gm/dL (2.2-3.7); Glomerular Filtration Rate 92; Glucose 133 mg/dL (70-105)
[2021-12-05] MEDS ORDERED: ceFAZolin 2 GM in DEXTROSE 5% IN WATER 50 ML IV SCH ×2 (13:15→15:00)
[2021-12-05] MEDS ORDERED: TRANEXAMIC ACID 1,000 MG/10 ML VIAL ONE (13:20)
[2021-12-05] MEDS ORDERED: LIDOCAINE HCL/PF 100 MG/5 ML SYRINGE IV ONE (13:20)
[2021-12-05] MEDS ORDERED: MAGNESIUM SULFATE 2 GM/50 ML BAG IV ONE (13:20)
[2021-12-05] MEDS ORDERED: PROPOFOL 200 MG/20 ML VIAL IV ONE (13:20)
[2021-12-05] MEDS ORDERED: ePHEDrine 50 MG/5 ML SYRINGE (ANEST) IV ONE (13:20)
[2021-12-05] MEDS ORDERED: DEXAMETHASONE 10 MG/ML VIAL ONE (13:20)
[2021-12-05] MEDS ORDERED: ONDANSETRON 4 MG/2 ML VIAL ONE (13:20)
[2021-12-05] MEDS ORDERED: KETAMINE 50 MG/ML Syringe (ANEST) IV ONE (13:20)
--- NOTE | 2021-12-05 14:35 | Consultation ---
DATE OF CONSULTATION: 12/05/2021 REQUESTING PROVIDER: Devante Bey PA-C CONSULTING PROVIDER: Cristian Moon MD REASON FOR CONSULTATION: Left distal femur fracture. HISTORY: This is a 71-year-old female with significant past medical history of diabetes and severe osteoporosis, who [place] and [place] injuring her left knee. She had severe pain and inability to bear weight. She was taken to the Emergency Department. X-rays showed a distal femur fracture with severe osteoporosis. CT scan was also obtained. PAST MEDICAL HISTORY: Diabetes mellitus, osteoporosis, nicotine addiction, gastroesophageal reflux. PAST SURGICAL HISTORY: Significant for arthroscopic left knee surgery as well as multiple fracture surgeries including intramedullary rodding of the right hip and femur, open treatment with internal fixation of a right tibial plateau fracture and open treatment internal fixation of a right distal radius fracture. MEDICATIONS: Ozempic. ALLERGIES: OXYCODONE, WHICH CAUSES SEVERE NAUSEA. SOCIAL HISTORY: She smokes likely a pack a day. She denies alcohol use and illicit drug use. FAMILY HISTORY: Positive for heart disease, hypertension. REVIEW OF SYSTEMS: A 10-system review is per the HPI. PHYSICAL EXAMINATION: VITAL SIGNS: Vitals on admission is temperature 97.7, pulse 86, respirations 16, blood pressure 116/67. GENERAL APPEARANCE: She appears her stated age, in no acute distress. She is oriented to person and place. PSYCHIATRIC: Mood and affect are reasonably appropriate. EXTREMITIES: Her left lower extremity reveals significant flexion with swelling and mild deformity at the knee. Skin is intact. Sensation to light touch is intact. She has limited range of motion due to pain. There are healed arthroscopy scars noted on the knee. X-rays reviewed shows severe osteoporosis with fracture of the distal femur that appears predominantly to involve the lateral femoral condyle. CT scan was done and reviewed, which shows a complete fracture across the distal femur with T-condylar extension into the joint. IMPRESSION: Closed left intraarticular comminuted distal femur fracture in a 71-year-old female, smoker and diabetic who has severe osteoporosis. PLAN: I discussed with her, her smoking is a bad problem with fracture healing as well as bone density. She seems to have no interest in quitting. I recommend proceeding with open treatment internal fixation of the left distal femur fracture, risks of surgery discussed include but not limited to bleeding, infection, injury to nerves, blood vessels, other surrounding structures, anesthetic risks, nonunion or malunion of the fracture. This being substantially increased given her smoking; failure of hardware fixation, this being a very high risk given her severe osteoporosis; possibility of needing further surgery. She voiced understanding and wishes to proceed. She has been cleared from the hospitalist standpoint. BJB:[email or web address] Job ID: [id number] Doc ID: [id number] Cristian Moon MD
[2021-12-05] MEDS ORDERED: MEPERIDINE 25 MG/ML VIAL IV PRN (14:36)
[2021-12-05] MEDS ORDERED: NALOXONE HCL 0.4 MG/ML VIAL IV PRN (14:36)
[2021-12-05] MEDS ORDERED: PROMETHAZINE 25 MG/ML VIAL IV PRN (14:36)
[2021-12-05] MEDS ORDERED: LACTATED RINGERS 250 ML IV PRN (14:36)
[2021-12-05] MEDS ORDERED: ONDANSETRON 4 MG/2 ML VIAL IV PRN ×2 (14:36→16:40)
[2021-12-05] MEDS ORDERED: IPRATROPIUM/ALBUTEROL 3 ML AMPUL.NEB NEB PRN (14:36)
[2021-12-05] MEDS ORDERED: diphenhydrAMINE 50 MG/ML VIAL IV PRN (14:36)
[2021-12-05] MEDS ORDERED: ACETAMINOPHEN 1,000 MG/100 ML BAG IV ONE (14:36)
[2021-12-05] MEDS ORDERED: METHOCARBAMOL 1,000 MG/10 ML VIAL IV PRN (14:36)
[2021-12-05] MEDS ORDERED: KETOROLAC 15 MG/ML VIAL IV PRN (14:41)
[2021-12-05] MEDS ORDERED: LACTATED RINGERS 1,000 ML IV SCH (14:45)
[2021-12-05] MEDS ORDERED: morphine 4 MG/ML VIAL IV PRN (14:49)
[2021-12-05] MEDS ORDERED: BISACODYL 10 MG SUPP.RECT PR PRN (14:49)
[2021-12-05] MEDS ORDERED: POLYETHYLENE GLYCOL 3350 17 GM PACKET PO PRN (14:49)
[2021-12-05] MEDS ORDERED: FLEETS ADULT ENEMA PR PRN (14:49)
[2021-12-05] MEDS ORDERED: MAGNESIUM HYDROXIDE 30 ML ORAL.SUSP PO PRN (14:49)
--- NOTE | 2021-12-05 14:49 | Brief Operative Note ---
Brief Operative Note Date of procedure: 12/05/21 Pre-op diagnosis: Left intra-articular comminuted distal femur fracture, closed Post-op diagnosis: same Procedure: Open treatment internal fixation of left closed intra-articular supracondylar distal femur fracture Grafts/Implants: Yes (Miya 8 hole distal femur locking plate) Anesthesia: GLMA Findings: severe osteoporosis, comminuted fracture of distal femur Complications: none Surgeon: Cristian Moon Vaccinator: Reji Bryson Estimated blood loss (cc): 100 Specimens Removed/Pathology: none sent Condition: stable Disposition: PACU
--- NOTE | 2021-12-05 15:12 | XRay Report ---
INDICATION: femur fx TECHNIQUE: Intraoperative fluoroscopy utilized. Whole reduction and internal fixation of lateral condylar fracture. 0.8 minutes fluoroscopy and 1.22 mGy exposure utilized COMPARISON: Previous plain film examination and CT scan dated 12/05/2021 FINDINGS: Spot films demonstrate open reduction and internal fixation of left lateral femoral condylar fracture. There has been plate and screw fixation with anatomic alignment IMPRESSION: Intraoperative fluoroscopy and spot films Interpreted and Authenticated by: Carlos Eduardo Chamberlain 12/05/21
[2021-12-05] MEDS: morphine 2 MG/ML VIAL IV PRN ×3 (15:26→15:42)
[2021-12-05] MEDS ORDERED: DEXTROSE 50% 50 ML VIAL IV PRN (16:40)
[2021-12-05] MEDS ORDERED: IBUPROFEN 600 MG TABLET PO PRN (16:40)
[2021-12-05] MEDS ORDERED: oxyCODONE HCL 5 MG TABLET PO PRN (16:40)
[2021-12-05] MEDS ORDERED: DEXTROSE 31 GM ORAL.SUSP PO PRN (16:40)
[2021-12-05] MEDS: 0.9 % SODIUM CHLORIDE 10 ML SYRINGE IV SCH ×2 (17:30→21:21)
[2021-12-05] MEDS: 0.9 % SODIUM CHLORIDE 1,000 ML IV SCH (17:30)
[2021-12-05 18:00] LABS: Appearance,Urine Clear (Clear); Bilirubin,Urine Negative (Negative); Color,Urine Yellow; Culture Indicated,Urine No; Glucose,Urine (UA) Negative (Negative); Ketones,Urine 15(1+) mg/dL (Negative); Leukocyte Esterase,Urine Trace /uL (Negative); Mucus,Urine FEW /hpf; Nitrate,Urine Negative (Negative); Protein,Urine Negative (Negative); Urine Blood Trace ery/mcL (Negative); Urine RBC 1 /hpf (0-3); Urine Squamous Epithelial Cell 6 /hpf (0-4); Urine WBC 7 /hpf (0-4); Urobilinogen,Urine Normal
[2021-12-05] MEDS: INSULIN LISPRO 1 UNIT/0.01 ML UNIT SQ SCH ×2 (18:38→21:20)
[2021-12-05] MEDS ORDERED: DOCUSATE SODIUM 100 MG CAPSULE PO SCH (21:00)
[2021-12-05] MEDS ORDERED: SENNOSIDES 1 TABLET PO SCH (21:00)
[2021-12-05] MEDS: SENNOSIDES 1 TABLET PO SCH (21:01)
[2021-12-05] MEDS: DOCUSATE SODIUM 100 MG CAPSULE PO SCH (21:02)
[2021-12-05] MEDS: ceFAZolin 1 GM VIAL IV SCH (21:02)
[2021-12-06] MEDS: ACETAMINOPHEN 325 MG TABLET PO PRN ×3 (03:34→22:00)
[2021-12-06] MEDS: 0.9 % SODIUM CHLORIDE 1,000 ML IV SCH (03:35)
[2021-12-06] MEDS: 0.9 % SODIUM CHLORIDE 10 ML SYRINGE IV SCH ×3 (05:58→21:55)
[2021-12-06] MEDS: ceFAZolin 1 GM VIAL IV SCH (05:58)
[2021-12-06 06:10] LABS: Basophils # (Auto) 0.01 K/mcL (0.00-0.30); Basophils % (Auto) 0.1 % (0.0-2.0); Eosinophils # (Auto) 0 K/mcL (0.00-0.70); Eosinophils % (Auto) 0 % (0.0-7.0); Hematocrit 29.4 % (34.1-44.9); Hemoglobin 9.3 g/dL (11.2-15.7); Lymphocytes # (Auto) 0.88 K/mcL (1.50-4.80); Lymphocytes % (Auto) 8.9 % (15.5-49.0); Mean Cell Volume 91.6 fL (80.0-100.0); Mean Corpuscular HGB Conc 31.6 g/dL (31.0-36.0); Mean Platelet Volume 9.4 fL (7.4-10.4); Monocytes # (Auto) 0.48 K/mcL (0.10-0.90); Monocytes % (Auto) 4.9 % (1.0-12.0); Neutrophils % (Auto) 85.7 % (38.0-78.0); Platelet Count 180 K/mcL (140-440); RBC 3.21 M/mcL (3.59-5.38); WBC 9.9 K/mcL (4.5-11.0)
[2021-12-06 06:33] LABS: Blood Urea Nitrogen 13 mg/dL (8-23); Calcium 7.8 mg/dL (8.6-10.4); Carbon Dioxide 23 mmol/L (22-30); Chloride 108 mmol/L (96-108); Glomerular Filtration Rate 92; Glucose 160 mg/dL (70-105)
[2021-12-06] MEDS: INSULIN LISPRO 1 UNIT/0.01 ML UNIT SQ SCH ×4 (06:38→22:19)
--- NOTE | 2021-12-06 08:07 | Operative Note ---
DATE OF OPERATION: 12/05/2021 PREOPERATIVE DIAGNOSIS: Left intraarticular supracondylar distal femur fracture, closed. POSTOPERATIVE DIAGNOSIS: Left intraarticular supracondylar distal femur fracture, closed. PROCEDURE PERFORMED: Open treatment and internal fixation of a left closed intraarticular supracondylar distal femur fracture using a Miya distal femur locking plate, 8-hole. SURGEON: Cristian Moon MD PERSONAL CARE AIDE: Jose Juan Bryson PA-C. This providers expertise and technical skill were required throughout the case. The PA assisted with preoperative coordination, intraoperative retraction, wound closure, and dressing and splint application, as well as postoperative documentation and care coordination. ANESTHESIA: General. DRAINS: None. SPECIMENS: None. COMPLICATIONS: None. ESTIMATED BLOOD LOSS: 150 mL. POSTOPERATIVE CONDITION: Stable. INDICATIONS FOR SURGERY: This is a 71-year-old female who is a smoker, diabetic, and has severe osteoporosis, who fell earlier today. She had severe pain and inability to bear weight. She was taken to the Emergency Department at [facility] and x-rays taken showed an intraarticular distal femur supracondylar fracture. FINDINGS AT SURGERY: The intraarticular supracondylar fracture with severe osteoporosis. Post-fixation showed excellent fracture alignment with satisfactory hardware position. PROCEDURE IN DETAIL: The patient had been seen preoperatively and informed consent had been obtained after discussion of risks and benefits of surgery. Risks including, but not limited to, bleeding; infection; injury to nerves, blood vessels, other surrounding structures, anesthetic risks; nonunion or malunion of the fracture; failure of hardware fixation, stiffness, possibility of needing further surgery. We discussed her smoking and being high risk for delayed union or nonunion and also affecting her osteoporosis and discussed that the osteoporosis significantly increases the risk of fracture displacement or loss of fixation of the bone. She was then taken to the operating room after consent was signed. General anesthesia induced. She was carefully positioned on the fracture table. Left lower extremity was placed in a boot with some traction. Fluoroscopy was brought in to verify reduction and then the left lower extremity was carefully prepped and draped in normal sterile fashion. A timeout was performed verifying patient name, operative site, and plan. An [place] shower curtain drape was placed. Incision was made at the scalpel through skin and subcutaneous tissue starting at the distal end of the femur. Hemostasis was obtained with Bovie cautery. We continued with the Bovie through the IT band and then blunt finger dissection taken to the fracture site. A large fracture hematoma was evacuated. I then held up several different distal femur locking plates with fluoroscopy and we felt the 8-hole plate would give us adequate fixation proximal with the plate ending at the mid shaft of the femur, which we felt was likely the strongest bone with the least likelihood of fracturing at the end of the plate. This was positioned onto an aimer arm and slid submuscularly up the femur. We positioned it best fit along the metaphyseal flare distally and then placed a guide pin through the center hole. We then made adjustments proximally until we were on shaft and then a [place] single claw clamp was placed over the femur and over the plate and then this was tightened to reduce the plate down to bone. Once this was fully reduced, the fluoroscopy was used to check AP and lateral, proximal and distal and the plate was in good position. The fracture appeared near anatomically reduced, so I placed three locking screws proximally using the percutaneous aimer. We left the proximal most hole empty on purpose to try and avoid a stress riser between the screw and the end of the plate. I started then with the 7-hole drilling and placing a bicortical locking screw, then the 5-hole. This was repeated. This was done percutaneously for these, making a stab incision, taking the sleeve down to the plate and then drilling and placing the screw and then the 3-hole was within our distal incision and then we went ahead and drilled and placed a third bicortical locking screw. We then removed the percutaneous aiming arm and placed the distal cluster jig on the arm. We then started drilling and filling our distal cluster. This was severely poor bone quality. We tried to keep the screws just shy of the far side of the bone medially. These were placed as locking screws. We did leave the distal posterior screws short to avoid traversing the femoral notch keeping it just in the lateral condyle. Once this was done, we removed the aimer jig and this allowed us to place the remaining screws; two of them more nonlocking cancellous screws. Once the distal cluster was filled, final fluoro images were taken, AP and lateral, proximal and distal, which showed hardware in good position, fracture well aligned. Those images were saved. We irrigated copiously with IrriSept. After a minute, we irrigated copiously with saline, and then #1 Vicryl was used to close the IT band in a running stitch, one starting in the middle and going proximal and one from the middle and distal. More IrriSept was irrigated and after a minute more irrigation with saline, and then 2-0 Monocryl was used for subcutaneous. [place] were used for skin closure. Xeroform and sterile dressing were applied. The leg was taken out of the traction and the patient was then awakened, extubated, and transferred to recovery in stable condition. BJNoemí:[email or web address] Job ID: [id number] Doc ID: [id number] Cristian Moon MD
[2021-12-06] MEDS: ENOXAPARIN 40 MG/0.4 ML SYRINGE SQ SCH (08:11)
[2021-12-06] MEDS: DOCUSATE SODIUM 100 MG CAPSULE PO SCH ×2 (08:11→21:55)
--- NOTE | 2021-12-06 08:45 | Internal Med Progress Note ---
SUBJECTIVE Subjective Patient information: Note initiated : 12/06/21 at 8:43 am Service Date, if different from initiated Date: [] Patient: Anabel Marmolejo 71 y/o F admitted on 12/05/21 for Left Knee Pain. Chief Complaint: [Fall] Principal diagnosis: Left tibial plateau fracture Interval history: The patient was resting comfortably in bed. She had no active complaints or concerns. She worked with physical therapy this morning. Constitutional Vitals: Vital Signs Temp Pulse Resp BP Pulse Ox O2 Del Method O2 Flow Rate 97.4 F 91 H 16 117/62 98 0 12/06/21 07:27 12/06/21 07:27 12/06/21 07:27 12/06/21 07:27 12/06/21 07:27 12/06/21 07:27 12/05/21 16:04 Period Temp Pulse Resp BP Sys/Osorio Pulse Ox O2 Del Method O2 Flow Rate Last 24 Hr 96.4 F-98.5 F 80-100 12-20 98-156/58-119 91-100 Room Air-Room Air 0-6 Intake and Output 12/05/21 12/06/21 12/06/21 21:59 05:59 13:59 Intake Total 2150 200 1480 Output Total 375 225 Balance 1775 -25 1480 Weight 75.478 kg Intake & Output: Intake & Output 12/05/21 12/06/21 12/06/21 21:59 05:59 13:59 Intake Total 2150 200 1480 Output Total 375 225 Balance 1775 -25 1480 Weight 75.478 kg Intake: IV 100 1000 Sodium Chloride 0.9% 1,000 ml @ 1000 100 mls/hr IV .Q10H [facility] Rx#: [id number] Oral 150 200 480 GI Tube Flush 400 IV - Manual Only 1500 Output: Void Amount 225 225 Estimated Blood Loss 150 Other: Urine Appearance Clear Urine Color Pale Straw Urine Odor Normal Head Head exam: Present atraumatic and normal inspection Eye Eye exam: Present normal appearance ENT ENT exam: Present mucous membranes moist, normal exam and normal external ear exam Neck Neck exam: Present normal inspection Respiratory Respiratory exam: Present normal respiratory exam Cardiovascular Cardiovascular exam: Present normal rate and rhythm GI/Abdominal GI/Abdominal exam: Present normal bowel sounds Back Exam Back exam: Present normal inspection Neurological Exam Neurological exam: Present alert and oriented X3 Skin Skin exam: Present intact and warm OBJ DATA Labs CBC & Chem 7: 12/06/21 05:32 12/06/21 05:32 Labs: Abnormal Lab Results 12/06/21 12/06/21 12/05/21 05:32 05:32 17:00 RBC 3.21 L Hgb 9.3 L Hct 29.4 L Neut % (Auto) 85.7 H Lymph % (Auto) 8.9 L Lymph # (Auto) 0.88 L Absolute Neutrophils 8.51 H Anion Gap 6.0 L Glucose 160 H Calcium 7.8 L Urine Ketones 15(1+) A Urine Occult Blood Trace A Ur Leukocyte Esterase Trace A Urine WBC 7 H Ur Squamous Epith Cells 6 H Urine Mucus Few A 12/05/21 12/05/21 12:09 12:09 RBC Hgb Hct Neut % (Auto) 87.4 H Lymph % (Auto) 8.5 L Lymph # (Auto) 0.86 L Absolute Neutrophils 8.83 H Anion Gap Glucose 133 H Calcium 8.3 L Urine Ketones Urine Occult Blood Ur Leukocyte Esterase Urine WBC Ur Squamous Epith Cells Urine Mucus Meds: Medications Acetaminophen (Acetaminophen 325 Mg Tablet) 650 mg PO Q6HP PRN; Protocol PRN Reason: Per Pain Protocol/Fever > 101 Last Admin: 12/06/21 03:34 Dose: 650 mg Bisacodyl (Bisacodyl 10 Mg Supp.Rect) 10 mg MA Q2-3DAYS PRN PRN Reason: Constipation Dextrose (Dextrose 50% 50 Ml Vial) 0 ml IV UD PRN PRN Reason: Per Sliding Scale Diagnostic Test (Pha) (Accu-Chek 1 Each Strip) 1 each FS ACHS [facility] Last Admin: 12/06/21 06:37 Dose: 1 each Docusate Sodium (Docusate Sodium 100 Mg Capsule) 100 mg PO BID [facility] Last Admin: 12/06/21 08:11 Dose: Not Given Enoxaparin Sodium (Enoxaparin 40 Mg/0.4 Ml Syringe) 40 mg SQ DAILY [facility] Last Admin: 12/06/21 08:11 Dose: 40 mg Glucose (Dextrose 31 Gm Oral.Susp) 15 gm PO PRN PRN PRN Reason: Hypoglycemia Sodium Chloride (Sodium Chloride 0.9%) 1,000 mls @ 100 mls/hr IV .Q10H [facility] Last Infusion: 12/06/21 06:58 Dose: Infused Ibuprofen (Ibuprofen 600 Mg Tablet) 600 mg PO QIDP PRN; Protocol PRN Reason: Per Pain Protocol/Fever > 101 Insulin Human Lispro (Insulin Lispro 1 Unit/0.01 Ml Unit) [address] [facility]; Protocol Last Admin: 12/06/21 06:38 Dose: Not Given Magnesium Hydroxide (Magnesium Hydroxide 30 Ml Oral.Susp) 30 ml PO BIDP PRN PRN Reason: Constipation Methocarbamol (Methocarbamol 750 Mg Tablet) 750 mg PO Q6HP PRN PRN Reason: Muscle Spasm Morphine Sulfate (Morphine 4 Mg/Ml Vial) 0 mg IV Q1HP PRN; Protocol PRN Reason: Per Pain Protocol Ondansetron HCl (Ondansetron 4 Mg/2 Ml Vial) 4 mg IV Q6HP PRN PRN Reason: Nausea And Vomiting Oxycodone/Acetaminophen (Oxycodone/Apap 5/325mg Tablet) 0 tab PO Q4HP PRN; Protocol PRN Reason: Per Pain Protocol Polyethylene Glycol (Polyethylene Glycol 3350 17 Gm Packet) 17 gm PO DAILYP PRN PRN Reason: Constipation Senna (Sennosides 1 Tablet) 2 tab PO HS [facility] Last Admin: 12/05/21 21:01 Dose: 2 tab Sodium Biphosphate/Sodium Phosphate (Fleets Adult Enema) 1 dose MA Q3-4DAYS PRN PRN Reason: Constipation Sodium Chloride (0.9 % Sodium Chloride 10 Ml Syringe) 10 ml IV Q8 [facility] Last Admin: 12/06/21 05:58 Dose: 10 ml A/P Assessment and plan (1) Femoral condyle fracture: Status: Acute (2) Glaucoma: Status: Chronic (3) Knee pain: Status: Chronic (4) Diabetes mellitus: Status: Chronic (5) Nicotine addiction: Status: Chronic Narrative A/P Narrative: The patient will be taken to the OR today. Postop management per orthopedic surgery. She will need to work with PT/OT to determine disposition. Continue Tylenol, ibuprofen and oxycodone for pain control. 12/06: The patient was taken to the OR for her left intra-articular communicated distal femoral fracture that required open reduction internal fixation. Per physical therapy she will likely need residential facility for rehabilitation. Weightbearing precautions and postop management per orthopedic surgery. Time Spent With Patient Time: Total time spent is greater than 50% in coordination of care (as documented) at patient's floor/unit and/or counseling patient: Total time spent with greater than 50% in coordination of care (as documented) at patient's floor/unit and/or counseling patient:: 25 - 35 minutes QUALITY VTE Deep Vein Thrombosis/Pulmonary Embolism Present on Admission: No
[2021-12-06] MEDS ORDERED: ENOXAPARIN 40 MG/0.4 ML SYRINGE SQ SCH (09:00)
--- NOTE | 2021-12-06 15:55 | Orthopedic Progress Note ---
SUBJECTIVE Subjective Patient information: Note initiated : 12/06/21 at 3:53 pm Service Date, if different from initiated Date: [] Patient: Anabel Marmolejo 71 y/o F admitted on 12/05/21 for Left Knee Pain. Chief Complaint: Mild pain Principal diagnosis: Left distal femur fx Constitutional Vitals: Vital Signs Temp Pulse Resp BP Pulse Ox O2 Del Method O2 Flow Rate 97.1 F 88 16 151/84 97 0 12/06/21 15:39 12/06/21 15:39 12/06/21 15:39 12/06/21 15:39 12/06/21 15:39 12/06/21 15:39 12/05/21 16:04 Period Temp Pulse Resp BP Sys/Osorio Pulse Ox O2 Del Method O2 Flow Rate Last 24 Hr 96.4 F-98.5 F 88-100 13-20 98-151/58-87 91-100 Room Air-Room Air 0 Intake and Output 12/06/21 12/06/21 12/06/21 05:59 13:59 21:59 Intake Total 200 1480 240 Output Total 225 400 Balance -25 1080 240 Intake & Output: Intake & Output 12/06/21 12/06/21 12/06/21 05:59 13:59 21:59 Intake Total 200 1480 240 Output Total 225 400 Balance -25 1080 240 Intake: IV 1000 Sodium Chloride 0.9% 1,000 ml @ 1000 100 mls/hr IV .Q10H [facility] Rx#: [id number] Oral 200 480 240 Output: Void Amount 225 400 OBJ DATA Labs CBC & Chem 7: 12/06/21 05:32 12/06/21 05:32 Labs: Abnormal Lab Results 12/06/21 12/06/21 12/05/21 05:32 05:32 17:00 RBC 3.21 L Hgb 9.3 L Hct 29.4 L Neut % (Auto) 85.7 H Lymph % (Auto) 8.9 L Lymph # (Auto) 0.88 L Absolute Neutrophils 8.51 H Anion Gap 6.0 L Glucose 160 H Calcium 7.8 L Urine Ketones 15(1+) A Urine Occult Blood Trace A Ur Leukocyte Esterase Trace A Urine WBC 7 H Ur Squamous Epith Cells 6 H Urine Mucus Few A 12/05/21 12/05/21 12:09 12:09 RBC Hgb Hct Neut % (Auto) 87.4 H Lymph % (Auto) 8.5 L Lymph # (Auto) 0.86 L Absolute Neutrophils 8.83 H Anion Gap Glucose 133 H Calcium 8.3 L Urine Ketones Urine Occult Blood Ur Leukocyte Esterase Urine WBC Ur Squamous Epith Cells Urine Mucus bandages c/d/i nvi-distal Meds: Medications Acetaminophen (Acetaminophen 325 Mg Tablet) 650 mg PO Q6HP PRN; Protocol PRN Reason: Per Pain Protocol/Fever > 101 Last Admin: 12/06/21 03:34 Dose: 650 mg Bisacodyl (Bisacodyl 10 Mg Supp.Rect) 10 mg NE Q2-3DAYS PRN PRN Reason: Constipation Dextrose (Dextrose 50% 50 Ml Vial) 0 ml IV UD PRN PRN Reason: Per Sliding Scale Diagnostic Test (Pha) (Accu-Chek 1 Each Strip) 1 each FS [facility] Last Admin: 12/06/21 10:38 Dose: 1 each Docusate Sodium (Docusate Sodium 100 Mg Capsule) 100 mg PO BID [facility] Last Admin: 12/06/21 08:11 Dose: Not Given Enoxaparin Sodium (Enoxaparin 40 Mg/0.4 Ml Syringe) 40 mg SQ DAILY [facility] Last Admin: 12/06/21 08:11 Dose: 40 mg Glucose (Dextrose 31 Gm Oral.Susp) 15 gm PO PRN PRN PRN Reason: Hypoglycemia Ibuprofen (Ibuprofen 600 Mg Tablet) 600 mg PO QIDP PRN; Protocol PRN Reason: Per Pain Protocol/Fever > 101 Insulin Human Lispro (Insulin Lispro 1 Unit/0.01 Ml Unit) 0 unit SQ [facility]; Protocol Last Admin: 12/06/21 10:53 Dose: 147 units Magnesium Hydroxide (Magnesium Hydroxide 30 Ml Oral.Susp) 30 ml PO BIDP PRN PRN Reason: Constipation Methocarbamol (Methocarbamol 750 Mg Tablet) 750 mg PO Q6HP PRN PRN Reason: Muscle Spasm Morphine Sulfate (Morphine 4 Mg/Ml Vial) 0 mg IV Q1HP PRN; Protocol PRN Reason: Per Pain Protocol Ondansetron HCl (Ondansetron 4 Mg/2 Ml Vial) 4 mg IV Q6HP PRN PRN Reason: Nausea And Vomiting Oxycodone/Acetaminophen (Oxycodone/Apap 5/325mg Tablet) 0 tab PO Q4HP PRN; Protocol PRN Reason: Per Pain Protocol Polyethylene Glycol (Polyethylene Glycol 3350 17 Gm Packet) 17 gm PO DAILYP PRN PRN Reason: Constipation Senna (Sennosides 1 Tablet) 2 tab PO HS [facility] Last Admin: 12/05/21 21:01 Dose: 2 tab Sodium Biphosphate/Sodium Phosphate (Fleets Adult Enema) 1 dose NE Q3-4DAYS PRN PRN Reason: Constipation Sodium Chloride (0.9 % Sodium Chloride 10 Ml Syringe) 10 ml IV Q8 [facility] Last Admin: 12/06/21 05:58 Dose: 10 ml A/P Time Spent With Patient Time: Total time spent is greater than 50% in coordination of care (as documented) at patient's floor/unit and/or counseling patient:
--- NOTE | 2021-12-06 15:56 | Discharge Summary ---
Discharge Provider Provider IMPORTANT FOLLOW-UP INFORMATION FOR PCP: Patient information: Note initiated : 12/06/21 at 3:55 pm Service Date, if different from initiated Date: [] Patient: Anabel Marmolejo 71 y/o F admitted on 12/05/21 for Left Knee Pain. Chief Complaint: [] Date of admission: 12/05/21 16:14 Discharge date: 12/08/21 Primary care physician: Bill Mensah Consults: 12/05/21 Consult to Physician [CONS] Stat Comment: Consulting Provider: Rosa Gomez Reason For Exam: Physician to Consult COURSE Hospital Course Hospital course: Pt admitted for a Distal femur fx. Discharge diagnosis: L distal femur fx Time Spent with Patient Time attestation: Total time spent providing and/or coordinating discharge services: Time spent: Less than 30 minutes Discharge Plan Patient/Caregiver Discharge Instructions Activity: increase activity as tolerated and non-weight bearing Diet: Regular Diet Prescriptions: New enoxaparin [Lovenox] 40 mg/0.4 mL Syringe 40 mg SQ DAILY Qty: 14 0RF hydrocodone-acetaminophen 7.5-325 mg tablet 1 - 2 tab PO Q4-6HP PRN (Reason: pain) Qty: 60 0RF No Action Ozempic 0.25 mg or 0.5 mg(2 mg/1.5 mL) Pen Injector See Rx Instructions .ROUTE .COMPLEX Rx Instructions: Pt does not know dose of medication. Takes medication SQ weekly Other Ambulatory Orders: Physical Therapy Discharge Order (Routine) Location: None Selected Ordered By: Reji Ahuja (ONCE) Location: None Selected Ordered By: Reji Bryson Follow Up Plan Follow up with: Reji Bryson PA-C [Physician Fur Stylist] - Bill Mensah MD [Primary Care Provider] - Patient Disposition: Xfer SNF Discharge Orders: Discharge Order (Routine); Ordered 12/06/21 Ordered By: Reji Bryson Pending Pending Pending: Resuscitation Status Resuscitate (Full Code) Diet Consistent Carbohydrate Diet Start Sun Dec 06 1715 Acetaminophen (Acetaminophen 325 Mg Tablet) 650 mg PO Q6HP PRN; Protocol PRN Reason: Per Pain Protocol/Fever > 101 Last Admin: 12/06/21 03:34 Dose: 650 mg Documented By: [email or web address] Diagnostic Test (Pha) (Accu-Chek 1 Each Strip) 1 each FS ACHS [facility] Last Admin: 12/06/21 10:38 Dose: 1 each Documented By: Admin: 12/06/21 06:37 Dose: 1 each Documented By: Admin: 12/05/21 21:16 Dose: 1 each Documented By: Admin: 12/05/21 17:31 Dose: 1 each Documented By: MARK Docusate Sodium (Docusate Sodium 100 Mg Capsule) 100 mg PO BID [facility] Last Admin: 12/06/21 08:11 Dose: Not Given Documented By: Admin: 12/05/21 21:02 Dose: 100 mg Documented By: WILLIE Enoxaparin Sodium (Enoxaparin 40 Mg/0.4 Ml Syringe) 40 mg SQ DAILY [facility] Last Admin: 12/06/21 08:11 Dose: 40 mg Documented By: ALIVIA Insulin Human Lispro (Insulin Lispro 1 Unit/0.01 Ml Unit) 0 unit SQ [facility]; Protocol Last Admin: 12/06/21 10:53 Dose: 147 units Documented By: Admin: 12/06/21 06:38 Dose: Not Given Documented By: Admin: 12/05/21 21:20 Dose: 3 units Documented By: Admin: 12/05/21 18:38 Dose: 2 units Documented By: MARK Senna (Sennosides 1 Tablet) 2 tab PO HS [facility] Last Admin: 12/05/21 21:01 Dose: 2 tab Documented By: WILLIE Sodium Chloride (0.9 % Sodium Chloride 10 Ml Syringe) 10 ml IV Q8 [facility] Last Admin: 12/06/21 05:58 Dose: 10 ml Documented By: Admin: 12/05/21 21:21 Dose: Not Given Documented By: Admin: 12/05/21 17:30 Dose: 10 ml Documented By: MARK Shift Summary 12/06/21 05:13 Shift Summary by Yumiko Lyon Admitted after a fall & fracture of her left distal femur; was repaired 12/05. Non-wt bearing on the left leg at this time. Has not been OOB tonight. Voiding per bedpan; QS. Can turn herself in bed for this. Has had some pain to the left knee area, but has requested only tylenol. Dressing to left lower thigh CDI. Ice packs on most of the night. Initialized on 12/06/21 05:13 - END OF NOTE
[2021-12-06] MEDS: SENNOSIDES 1 TABLET PO SCH (21:54)
[2021-12-07] MEDS: ACETAMINOPHEN 325 MG TABLET PO PRN (06:55)
[2021-12-07] MEDS: 0.9 % SODIUM CHLORIDE 10 ML SYRINGE IV SCH ×3 (06:59→21:53)
[2021-12-07] MEDS: INSULIN LISPRO 1 UNIT/0.01 ML UNIT SQ SCH ×4 (06:59→21:53)
[2021-12-07] MEDS: DOCUSATE SODIUM 100 MG CAPSULE PO SCH ×2 (08:54→21:51)
[2021-12-07] MEDS: ENOXAPARIN 40 MG/0.4 ML SYRINGE SQ SCH (08:54)
[2021-12-07] MEDS ORDERED: IBUPROFEN 600 MG TABLET PO PRN (09:48)
[2021-12-07] MEDS ORDERED: ACETAMINOPHEN 650 MG/65 ML BAG IV PRN (09:48)
[2021-12-07] MEDS ORDERED: traMADol 50 MG TABLET PO PRN (10:00)
--- NOTE | 2021-12-07 10:54 | Internal Med Progress Note ---
SUBJECTIVE Subjective Patient information: Note initiated : 12/07/21 at 10:53 am Service Date, if different from initiated Date: [] Patient: Anabel Marmolejo 71 y/o F admitted on 12/05/21 for Left Knee Pain. Chief Complaint: [] Principal diagnosis: Left distal femur fx Interval history: The patient was complaining of pain this morning however was reluctant to take anything more than Tylenol. I have added IV Tylenol, Toradol and tramadol. Discussed the case with the RN. Constitutional Vitals: Vital Signs Temp Pulse Resp BP Pulse Ox O2 Del Method O2 Flow Rate 97.5 F 75 12 123/73 97 0 12/07/21 07:07 12/07/21 07:07 12/07/21 07:07 12/07/21 07:07 12/07/21 07:07 12/07/21 07:07 12/05/21 16:04 Period Temp Pulse Resp BP Sys/Osorio Pulse Ox O2 Del Method O2 Flow Rate Last 24 Hr 97.1 F-98.6 F 75-90 12-20 105-151/66-84 95-97 Room Air-Room Air Intake and Output 12/06/21 12/07/21 12/07/21 21:59 05:59 13:59 Intake Total 240 100 480 Output Total 225 Balance 240 100 255 Weight 75.841 kg Intake & Output: Intake & Output 12/06/21 12/07/21 12/07/21 21:59 05:59 13:59 Intake Total 240 100 480 Output Total 225 Balance 240 100 255 Weight 75.841 kg Intake: Oral 240 100 480 Output: Void Amount 225 Other: Meal Breakfast Percent of Meal Consumed 100% Feeding Ability Independent Urine Appearance Clear Urine Color Bright Yellow # Voids 1 1 Head Head exam: Present atraumatic and normal inspection Eye Eye exam: Present normal appearance ENT ENT exam: Present mucous membranes moist, normal exam and normal external ear exam Neck Neck exam: Present normal inspection Respiratory Respiratory exam: Present normal respiratory exam Cardiovascular Cardiovascular exam: Present normal rate and rhythm GI/Abdominal GI/Abdominal exam: Present normal bowel sounds Back Exam Back exam: Present normal inspection Neurological Exam Neurological exam: Present alert and oriented X3 Skin Skin exam: Present intact and warm OBJ DATA Labs CBC & Chem 7: 12/06/21 05:32 12/06/21 05:32 Labs: Abnormal Lab Results 12/06/21 12/06/21 12/05/21 05:32 05:32 17:00 RBC 3.21 L Hgb 9.3 L Hct 29.4 L Neut % (Auto) 85.7 H Lymph % (Auto) 8.9 L Lymph # (Auto) 0.88 L Absolute Neutrophils 8.51 H Anion Gap 6.0 L Glucose 160 H Calcium 7.8 L Urine Ketones 15(1+) A Urine Occult Blood Trace A Ur Leukocyte Esterase Trace A Urine WBC 7 H Ur Squamous Epith Cells 6 H Urine Mucus Few A 12/05/21 12/05/21 12:09 12:09 RBC Hgb Hct Neut % (Auto) 87.4 H Lymph % (Auto) 8.5 L Lymph # (Auto) 0.86 L Absolute Neutrophils 8.83 H Anion Gap Glucose 133 H Calcium 8.3 L Urine Ketones Urine Occult Blood Ur Leukocyte Esterase Urine WBC Ur Squamous Epith Cells Urine Mucus Meds: Medications Acetaminophen (Acetaminophen 325 Mg Tablet) 650 mg PO Q6HP PRN; Protocol PRN Reason: Per Pain Protocol/Fever > 101 Last Admin: 12/07/21 06:55 Dose: 650 mg Bisacodyl (Bisacodyl 10 Mg Supp.Rect) 10 mg [place] Q2-3DAYS PRN PRN Reason: Constipation Dextrose (Dextrose 50% 50 Ml Vial) 0 ml IV UD PRN PRN Reason: Per Sliding Scale Diagnostic Test (Pha) (Accu-Chek 1 Each Strip) 1 each FS ACHS [facility] Last Admin: 12/07/21 06:59 Dose: 1 each Docusate Sodium (Docusate Sodium 100 Mg Capsule) 100 mg PO BID [facility] Last Admin: 12/07/21 08:54 Dose: Not Given Enoxaparin Sodium (Enoxaparin 40 Mg/0.4 Ml Syringe) 40 mg SQ DAILY [facility] Last Admin: 12/07/21 08:54 Dose: Not Given Glucose (Dextrose 31 Gm Oral.Susp) 15 gm PO PRN PRN PRN Reason: Hypoglycemia Acetaminophen (Ofirmev) 650 mg in 65 mls @ 130 mls/hr IV Q6HP PRN; Protocol PRN Reason: PAIN/FEVER > 101 Ibuprofen (Ibuprofen 600 Mg Tablet) 600 mg PO QIDP PRN; Protocol PRN Reason: Per Pain Protocol/Fever > 101 Last Admin: 12/06/21 20:08 Dose: 600 mg Ibuprofen (Ibuprofen 600 Mg Tablet) 600 mg PO TIDP PRN; Protocol PRN Reason: PAIN/FEVER > 101 Insulin Human Lispro (Insulin Lispro 1 Unit/0.01 Ml Unit) 0 unit SQ ACHS [facility]; P [facility] Last Admin: 12/07/21 06:59 Dose: Not Given Magnesium Hydroxide (Magnesium Hydroxide 30 Ml Oral.Susp) 30 ml PO BIDP PRN PRN Reason: Constipation Methocarbamol (Methocarbamol 750 Mg Tablet) 750 mg PO Q6HP PRN PRN Reason: Muscle Spasm Morphine Sulfate (Morphine 4 Mg/Ml Vial) 0 mg IV Q1HP PRN; Protocol PRN Reason: Per Pain Protocol Ondansetron HCl (Ondansetron 4 Mg/2 Ml Vial) 4 mg IV Q6HP PRN PRN Reason: Nausea And Vomiting Oxycodone/Acetaminophen (Oxycodone/Apap 5/325mg Tablet) 0 tab PO Q4HP PRN; Protocol PRN Reason: Per Pain Protocol Polyethylene Glycol (Polyethylene Glycol 3350 17 Gm Packet) 17 gm PO DAILYP PRN PRN Reason: Constipation Senna (Sennosides 1 Tablet) 2 tab PO HS [facility] Last Admin: 12/06/21 21:54 Dose: 2 tab Sodium Biphosphate/Sodium Phosphate (Fleets Adult Enema) 1 dose [place] Q3-4DAYS PRN PRN Reason: Constipation Sodium Chloride (0.9 % Sodium Chloride 10 Ml Syringe) 10 ml IV Q8 [facility] Last Admin: 12/07/21 06:59 Dose: 10 ml Tramadol HCl (Tramadol 50 Mg Tablet) 50 mg PO Q6HP PRN; Protocol PRN Reason: Pain Last Admin: 12/07/21 10:08 Dose: 50 mg A/P Assessment and plan (1) Femoral condyle fracture: Status: Acute (2) Glaucoma: Status: Chronic (3) Knee pain: Status: Chronic (4) Diabetes mellitus: Status: Chronic (5) Nicotine addiction: Status: Chronic Narrative A/P Narrative: The patient will be taken to the OR today. Postop management per orthopedic surgery. She will need to work with PT/OT to determine disposition. Continue Tylenol, ibuprofen and oxycodone for pain control. 12/06: The patient was taken to the OR for her left intra-articular communicated distal femoral fracture that required open reduction internal fixation. Per physical therapy she will likely need intermediate facility for rehabilitation. Weightbearing precautions and postop management per orthopedic surgery. 12/07: As per ortho mobilize with PT d/c to snf 1-2 days f/u 2 weeks. non-weight bearing L LE Time Spent With Patient Time: Total time spent is greater than 50% in coordination of care (as documented) at patient's floor/unit and/or counseling patient: Total time spent with greater than 50% in coordination of care (as documented) at patient's floor/unit and/or counseling patient:: 25 - 35 minutes QUALITY VTE Deep Vein Thrombosis/Pulmonary Embolism Present on Admission: No
[2021-12-07] MEDS: oxyCODONE/APAP 5/325MG TABLET PO PRN ×2 (18:28→22:06)
[2021-12-07] MEDS: METHOCARBAMOL 750 MG TABLET PO PRN (21:51)
[2021-12-07] MEDS: SENNOSIDES 1 TABLET PO SCH (21:53)
[2021-12-08] MEDS: 0.9 % SODIUM CHLORIDE 10 ML SYRINGE IV SCH (05:23)
[2021-12-08] MEDS: METHOCARBAMOL 750 MG TABLET PO PRN (06:10)
[2021-12-08] MEDS: oxyCODONE/APAP 5/325MG TABLET PO PRN (06:10)
[2021-12-08] MEDS: INSULIN LISPRO 1 UNIT/0.01 ML UNIT SQ SCH (07:24)
[2021-12-08] MEDS: DOCUSATE SODIUM 100 MG CAPSULE PO SCH (08:31)
[2021-12-08] MEDS: ENOXAPARIN 40 MG/0.4 ML SYRINGE SQ SCH (08:31)
--- NOTE | 2021-12-08 08:38 | Discharge Summary ---
Discharge Provider Provider IMPORTANT FOLLOW-UP INFORMATION FOR PCP: Patient information: Note initiated : 12/08/21 at 8:35 am Service Date, if different from initiated Date: [] Patient: Anabel Marmolejo 71 y/o F admitted on 12/05/21 for Left Knee Pain. Chief Complaint: [Fall] Date of admission: 12/05/21 16:14 Discharge date: 12/08/21 Primary care physician: Bill Mensah Consults: 12/05/21 Consult to Physician [CONS] Stat Comment: Consulting Provider: Rosa Gomez Reason For Exam: Physician to Consult Attending physician on discharge: Rosa Gomez COURSE Hospital Course Hospital course: The patient will be taken to the OR today. Postop management per orthopedic surgery. She will need to work with PT/OT to determine disposition. Continue Tylenol, ibuprofen and oxycodone for pain control. 12/06: The patient was taken to the OR for her left intra-articular communicated distal femoral fracture that required open reduction internal fixation. Per physical therapy she will likely need nursing home facility for rehabilitation. Weightbearing precautions and postop management per orthopedic surgery. Discharge diagnosis: Left tibial plateau fracture Reason for admission: Fall Time Spent with Patient Time attestation: Total time spent providing and/or coordinating discharge services: Time spent: Greater than 30 minutes EXAM Constitutional Vitals: Temp Pulse Resp BP Pulse Ox O2 Del Method O2 Flow Rate 97.2 F 87 14 103/60 95 0 12/08/21 07:36 12/08/21 07:36 12/08/21 07:36 12/08/21 07:36 12/08/21 07:36 12/08/21 07:36 12/05/21 16:04 General appearance: average body habitus Head Head exam: Present atraumatic, normal inspection and normocephalic Eye Eye exam: Present EOMI, normal appearance and PERRL; Absent conjunctival injection ENT ENT exam: Present normal exam; Absent mucous membranes dry Neck Neck exam: Present full ROM; Absent lymphadenopathy Respiratory Respiratory exam: Present normal respiratory exam and CTAB; Absent decreased breath sounds, respiratory distress or wheezes Cardiovascular Cardiovascular exam: Present normal rate and rhythm and RRR; Absent JVD GI/Abdominal GI/Abdominal exam: Present normal bowel sounds and soft; Absent diminished bowel sounds, distended, guarding, mass, rebound or tenderness Neurological Exam Neurological exam: Present alert, CN II-XII intact and oriented X3 Psychiatric Psychiatric exam: Present normal affect and normal mood Skin Skin exam: Present intact and warm; Absent erythema, pallor, petechiae or rash Discharge Plan Patient/Caregiver Discharge Instructions Activity: increase activity as tolerated and non-weight bearing Diet: Regular Diet Instructions: ORIF (DC) Prescriptions: New enoxaparin [Lovenox] 40 mg/0.4 mL Syringe 40 mg SQ DAILY Qty: 14 0RF hydrocodone-acetaminophen 7.5-325 mg tablet 1 - 2 tab PO Q4-6HP PRN (Reason: pain) Qty: 60 0RF No Action Ozempic 0.25 mg or 0.5 mg(2 mg/1.5 mL) Pen Injector See Rx Instructions .ROUTE .COMPLEX Rx Instructions: Pt does not know dose of medication. Takes medication SQ weekly Other Ambulatory Orders: Physical Therapy Discharge Order (Routine) Location: None Selected Ordered By: Reji Ahuja (ONCE) Location: None Selected Ordered By: Reji Bryson Follow Up Plan Follow up with: Reji Bryson PABurkeC [Physician Director Operating Room] - Bill Mensah MD [Primary Care Provider] - Patient Disposition: Xfer SNF Rehab Potential: Good I certify that the patient requires SNF services: Yes Overall status at discharge: patient is progressing back to baseline Discharge Orders: Discharge Order (Routine); Ordered 12/06/21 Ordered By: Reji Bryosn QUALITY VTE Deep Vein Thrombosis/Pulmonary Embolism Present on Admission: No
== END 2021-12-08 11:00 | DRG 482 ==
LOC: ED 09:59 → SUR 12:50 → MEDSUR 16:14
PROVIDERS: ADMIT Student in an Organized Health Care Education/Training Program; ATTEND Student in an Organized Health Care Education/Training Program